=== PATIENT | male | born 1980 | race Caucasian/White ===

== ENCOUNTER 2016-11-08 14:11 | Emergency (ER) | payer OTHER ==
[2016-11-08 14:27] VITALS: PULSE 78; RESP 20; TEMP 97.3
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
[2016-11-08] MEDS ORDERED: KETOROLAC 60 MG/2 ML VIAL IM STA (15:08)
[2016-11-08] MEDS ORDERED: ORPHENADRINE 30 MG/ML 2 ML VIAL IM STA (15:08)
--- NOTE | 2016-11-08 15:11 | XR ---
EXAMINATION TYPE: XR cervical spine limited DATE OF EXAM ORDERED: 11/08/2016 3:05 PM HISTORY: Pain. COMPARISON: None. FINDINGS: There is loss of normal cervical lordosis. Vertebral body height and alignment are maintained. Atlantoaxial relationships are normal. There is m ild disc space loss at C5-6. No other significant degenerative changes seen. IMPRESSION: 1. NO ACUTE OSSEOUS LESION. 2. MINIMAL DEGENERATIVE CHANGE, C5-6.
--- NOTE | 2016-11-08 15:15 | XR ---
EXAMINATION TYPE: XR lumbar spine 2 or 3V DATE OF EXAM ORDERED: 11/08/2016 3:05 PM HISTORY: Pain. COMPARISON: None. FINDINGS: There has been a previous cholecystectomy. Vertebral body alignment is maintained. There is minimal wedging of the T12 and L1 vertebral bodies w ith associated degenerative change. This is likely chronic. There is no spondylolysis or spondylolist hesis. There is mild disc space loss at L5-S1 and also T12-L1. The pedicles are intact. IMPRESSION: 1. NO ACUTE OSSEOUS LESION. 2. MILD DEGENERATIVE CHANGE.
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
[2016-11-08 15:47] VITALS: BP 145/89
== END 2016-11-08 15:48 | disposition home or self-care (01) ==
LOC: EC 14:11
DX: S16.1XXA Strain of muscle, fascia and tendon at neck level, initial encounter (principal); S39.012A Strain of muscle, fascia and tendon of lower back, initial encounter; S00.11XA Contusion of right eyelid and periocular area, initial encounter; V49.50XA Passenger injured in collision with unspecified motor vehicles in traffic accident, initial encounter; Y92.410 Unspecified street and highway as the place of occurrence of the external cause
CPT/HCPCS: 96372 ×3; 99284 ×2; 72040; 72100; 70486; J2360; J1885

== ENCOUNTER 2023-07-13 13:35 | Emergency (ER) | payer OTHER ==
--- NOTE | 2023-07-13 14:19 | ED ---
General Adult HPI - General Chief complaint: Shortness of Breath Stated complaint: dark urine swollen feet sob Time Seen by Provider: 07/13/23 13:41 Source: patient, RN notes reviewed Mode of arrival: ambulatory Limitations: no limitations - History of Present Illness Initial comments: 43-year-old male presents to the emergency department for chief complaint of left-sided flank pain, fluid retention, shortness of breath. He states that the symptoms have been going on for around 3-4 days. He does report that the pain in his flank is worse with deep breaths and with coughing. He does report decreased frequency of urination with possible hematuria. He also reports that he has been coughing frequently. He does state this is a productive cough. He denies fever, chills. He denies any known medical history. - Related Data Previous Rx's Medication Instructions Recorded Cyclobenzaprine [Flexeril] 10 mg PO TID #12 tab 11/08/16 Ibuprofen [Motrin] 800 mg PO Q6HR PRN #20 tab 11/08/16 diazePAM [Valium] 5 mg PO TID #12 tab 11/08/16 Amoxic-Pot Clav 875-125Mg 1 tab PO BID 7 Days #14 tab 07/13/23 [Augmentin 875-125] Azithromycin [Zithromax Z Pack] 0 tab PO DIRECTED #6 tab 07/13/23 Allergies Allergy/AdvReac Type Severity Reaction Status Date / Time No Known Allergies Allergy Verified 07/13/23 13:39 Review of Systems ROS Statement: Those systems with pertinent positive or pertinent negative responses have been documented in the HPI. ROS Other: All systems not noted in ROS Statement are negative. Past Medical History Past Medical History: No Reported History History of Any Multi-Drug Resistant Organisms: None Reported Additional Past Surgical History / Comment(s): cholecystectomy Past Psychological History: No Psychological Hx Reported Smoking Status: Current every day smoker Past Alcohol Use History: Rare Past Drug Use History: Marijuana General Exam Limitations: no limitations General appearance: alert, in no apparent distress Head exam: Present: atraumatic, normocephalic, normal inspection ENT exam: Present: normal exam, mucous membranes moist Neck exam: Present: normal inspection. Absent: tenderness, meningismus, lymphadenopathy Respiratory exam: Present: rhonchi. Absent: respiratory distress, chest wall tenderness, accessory muscle use Cardiovascular Exam: Present: regular rate, normal rhythm, normal heart sounds. Absent: systolic murmur, diastolic murmur, rubs, gallop, clicks GI/Abdominal exam: Present: soft, normal bowel sounds. Absent: distended, tenderness, guarding, rebound, rigid Extremities exam: Present: normal inspection, full ROM, normal capillary refill, pedal edema. Absent: tenderness, joint swelling, calf tenderness Back exam: Present: tenderness (Left flank) Neurological exam: Present: alert, oriented X3 Psychiatric exam: Present: normal affect, normal mood Skin exam: Present: warm, dry, intact, normal color. Absent: rash Course Vital Signs 07/13/23 07/13/23 07/13/23 13:36 14:53 16:00 Temperature 98.4 F Pulse Rate 85 83 80 Respiratory 18 20 22 Rate Blood Pressure 167/85 153/87 150/80 O2 Sat by Pulse 93 L 98 98 Oximetry 07/13/23 16:41 Temperature 100.2 F H Pulse Rate 85 Respiratory 22 Rate Blood Pressure 151/89 O2 Sat by Pulse 95 Oximetry Medical Decision Making - Medical Decision Making Was pt. sent in by a medical professional or institution (, PA, [facility], urgent care, hospital, or [place] health care facility...) When possible be specific @ -No Did you speak to anyone other than the patient for history (EMS, parent, family, police, friend...)? What history was obtained from this source @ -No Did you review nursing and triage notes (agree or disagree)? Why? @ -I reviewed and agree with nursing and triage notes Were old charts reviewed (outside hosp., previous admission, EMS record, old EKG, old radiological studies, urgent care reports/EKG's, [place] health care facility records)? Report findings @ -No old charts were reviewed Differential Diagnosis (chest pain, altered mental status, abdominal pain women, abdominal pain men, vaginal bleeding, weakness, fever, dyspnea, syncope, he adache, dizziness, GI bleed, back pain, seizure, CVA, palpatations, mental health, musculoskeletal)? @ -Differential Abdominal Pain Men: Appendicitis, cholecystitis, diverticulosis, ischemic bowel, pancreatitis, hepatitis, UTI, gastroenteritis, AAA, incarcerated hernia, bowel obstruction, constipation, inflammatory bowel, hepatitis, peptic ulcer disease, splenic infarction, perforated viscus, testicular torsion, this is not meant to be an all-inclusive list EKG interpreted by me (3pts min.). @ -EKG at 1344 shows sinus rhythm rate 81, CA 148, QRS 102, QTQTc 3 [id number] X-rays interpreted by me (1pt min.). @ -None done CT interpreted by me (1pt min.). @ -CT abdomen and pelvis shows U/S interpreted by me (1pt. min.). @ -None done What testing was considered but not performed or refused? (CT, X-rays, U/S, labs)? Why? @ -None What meds were considered but not given or refused? Why? @ -None Did you discuss the management of the patient with other professionals (professionals i.e. , PA, [employer] [facility], lab, RT, psych nurse, social director, produce weigher, teacher, correctional probation officer, watch case polisher)? Give summary @ -No Was smoking cessation discussed for >3mins.? @ -No Was critical care preformed (if so, how long)? @ -No Were there social determinants of health that impacted care today? How? (Homelessness, low income, unemployed, alcoholism, drug addiction, transportation, low edu. Level, literacy, decrease access to med. care, snf, rehab)? @ -No Was there de-escalation of care discussed even if they declined (Discuss DNR or withdrawal of care, Hospice)? DNR status @ -No What co-morbidities impacted this encounter? (DM, HTN, Smoking, COPD, CAD, Ca ncer, CVA, ARF, Chemo, Hep., AIDS, mental health diagnosis, sleep apnea, morbid obesity)? @ -None Was patient admitted / discharged? Hospital course, mention meds given and route, prescriptions, significant lab abnormalities, going to OR and other pertinent info. @ -Discharged. Patient presented to the emergency department with chief compl aint of left-sided flank/rib pain. Left lower lobe pneumonia with small effusion, diverticulosis without diverticulitis; chest x-ray shows mild interstitial prominence of the left lung with small to moderate left pleural effusion; laboratory studies obtained show WBC 10.1, hemoglobin 12.8, hematocrit 40.0; PTT INR within normal limits; CMP shows sodium 138, potassium 4.6, chloride 102, creatinine 0.85, negative troponin, BNP 168; UA shows trace protein, negative leukocyte esterase, negative nitrite. Patient will be treated with one dose of IV Rocephin and outpatient treatment of pneumonia. Patient is febrile at discharge likely due to the pneumonia. Patient stable at discharge. Patient understands and agreeable with plan. Case discussed with Dr. Naqvi. Undiagnosed new problem with uncertain prognosis? @ -No Drug Therapy requiring intensive monitoring for toxicity (Heparin, Nitro, Insulin, Cardizem)? @ -No Were any procedures done? @ -No Diagnosis/symptom? @ -pneumonia Acute, or Chronic, or Acute on Chronic? @ -acute Uncomplicated (without systemic symptoms) or Complicated (systemic symptoms)? @ -complicated Side effects of treatment? @ -No Exacerbation, Progression, or Severe Exacerbation? @ -No Poses a threat to life or bodily function? How? (Chest pain, USA, MD, pneumonia, PE, COPD, DKA, ARF, appy, cholecystitis, CVA, Diverticulitis, Homicidal, S uicidal, threat to staff... and all critical care pts) @ -No - Lab Data Result diagrams: 07/13/23 14:17 07/13/23 14:17 Lab Results 07/13/23 07/13/23 07/13/23 Range/Units 14:17 14:17 14:17 WBC 10.1 (3.8-10.6) k/uL RBC 4.62 (4.30-5.90) m/uL Hgb 12.8 L (13.0-17.5) gm/dL Hct 40.0 (39.0-53.0) % MCV 86.7 (80.0-100.0) fL MCH 27.7 (25.0-35.0) pg MCHC 32.0 (31.0-37.0) g/dL RDW 12.7 (11.5-15.5) % Plt Count 340 (150-450) k/uL MPV 9.6 Neutrophils % 70 % Lymphocytes % 19 % Monocytes % 7 % Eosinophils % 3 % Basophils % 0 % Neutrophils # 7.0 (1.3-7.7) k/uL Lymphocytes # 1.9 (1.0-4.8) k/uL Monocytes # 0.7 (0-1.0) k/uL Eosinophils # 0.3 (0-0.7) k/uL Basophils # 0.0 (0-0.2) k/uL PT 11.3 (10.0-12.5) sec INR 1.0 (<1.2) APTT 25.7 (22.0-30.0) sec Sodium 138 (137-145) mmol/L Potassium 4.6 (3.5-5.1) mmol/L Chloride 102 (98-107) mmol/L Carbon Dioxide 27 (22-30) mmol/L Anion Gap 9 mmol/L BUN 14 (9-20) mg/dL Creatinine 0.85 (0.66-1.25) mg/dL Est GFR (CKD-EPI)AfAm >90 (>60 ml/min/1.73 sqM) Est GFR (CKD-EPI)NonAf >90 (>60 ml/min/1.73 sqM) Glucose 108 H (74-99) mg/dL Plasma Lactic Acid Selvin (0.7-2.0) mmol/L Calcium 9.0 (8.4-10.2) mg/dL Total Bilirubin 1.1 (0.2-1.3) mg/dL AST 34 (17-59) U/L ALT 36 (4-49) U/L Alkaline Phosphatase 119 (38-126) U/L Troponin I (0.000-0.034) ng/mL NT-Pro-B Natriuret Pep 168 pg/mL Total Protein 6.9 (6.3-8.2) g/dL Albumin 3.5 (3.5-5.0) g/dL Urine Color Urine Appearance (Clear) Urine pH (5.0-8.0) Ur Specific Savage (1.001-1.035) Urine Protein (Negative) Urine Glucose (UA) (Negative) Urine Ketones (Negative) Urine Blood (Negative) Urine Nitrite (Negative) Urine Bilirubin (Negative) Urine Urobilinogen (<2.0) mg/dL Ur Leukocyte Esterase (Negative) 07/13/23 07/13/23 07/13/23 Range/Units 14:17 14:17 14:17 WBC (3.8-10.6) k/uL RBC (4.30-5.90) m/uL Hgb (13.0-17.5) gm/dL Hct (39.0-53.0) % MCV (80.0-100.0) fL MCH (25.0-35.0) pg MCHC (31.0-37.0) g/dL RDW (11.5-15.5) % Plt Count (150-450) k/uL MPV Neutrophils % % Lymphocytes % % Monocytes % % Eosinophils % % Basophils % % Neutrophils # (1.3-7.7) k/uL Lymphocytes # (1.0-4.8) k/uL Monocytes # (0-1.0) k/uL Eosinophils # (0-0.7) k/uL Basophils # (0-0.2) k/uL PT (10.0-12.5) sec INR (<1.2) APTT (22.0-30.0) sec Sodium (137-145) mmol/L Potassium (3.5-5.1) mmol/L Chloride (98-107) mmol/L Carbon Dioxide (22-30) mmol/L Anion Gap mmol/L BUN (9-20) mg/dL Creatinine (0.66-1.25) mg/dL Est GFR (CKD-EPI)AfAm (>60 ml/min/1.73 sqM) Est GFR (CKD-EPI)NonAf (>60 ml/min/1.73 sqM) Glucose (74-99) mg/dL Plasma Lactic Acid Selvin 1.4 (0.7-2.0) mmol/L Calcium (8.4-10.2) mg/dL Total Bilirubin (0.2-1.3) mg/dL AST (17-59) U/L ALT (4-49) U/L Alkaline Phosphatase (38-126) U/L Troponin I <0.012 (0.000-0.034) ng/mL NT-Pro-B Natriuret Pep pg/mL Total Protein (6.3-8.2) g/dL Albumin (3.5-5.0) g/dL Urine Color Yellow Urine Appearance Clear (Clear) Urine pH 7.5 (5.0-8.0) Ur Specific Savage 1.029 (1.001-1.035) Urine Protein Trace H (Negative) Urine Glucose (UA) Negative (Negative) Urine Ketones Negative (Negative) Urine Blood Negative (Negative) Urine Nitrite Negative (Negative) Urine Bilirubin Negative (Negative) Urine Urobilinogen 12.0 (<2.0) mg/dL Ur Leukocyte Esterase Negative (Negative) Disposition Clinical Impression: Pneumonia Disposition: HOME SELF-CARE Condition: Stable Instructions (If sedation given, give patient instructions): Community Acquired Pneumonia (ED) Additional Instructions: Please waste picker antibiotics and take to completion. Follow up with your primary care provider. Return to the emergency department for new or worsening symptoms. Prescriptions: Amoxic-Pot Clav 875-125Mg [Augmentin 875-125] 1 tab PO BID 7 Days #14 tab Azithromycin [Zithromax Z Pack] 0 tab PO DIRECTED #6 tab Is patient prescribed a controlled substance at d/c from ED?: No Referrals: None,Stated [Primary Care Provider] - 1-2 days
[2023-07-13 14:34] LABS: Appearance,Urine Clear (Clear); Bilirubin,Urine Negative (Negative); Blood,Urine Negative (Negative); Color,Urine Yellow; Glucose,Urine (UA) Negative (Negative); Ketones,Urine Negative (Negative); Leukocyte Esterase,Urine Negative (Negative); Nitrite,Urine Negative (Negative); PH, Urine 7.5 (5.0-8.0); Protein,Urine Trace (Negative); Specific Gravity,Urine 1.029 (1.001-1.035)
[2023-07-13 14:35] LABS: Basophils % (A) 0 %; Eosinophils # (A) 0.3 k/uL (0-0.7); Eosinophils % (A) 3 %; HGB 12.8 gm/dL (13.0-17.5); Lymphocytes # (A) 1.9 k/uL (1.0-4.8); Lymphocytes % (A) 19 %; MCH 27.7 pg (25.0-35.0); MCV 86.7 fL (80.0-100.0); Mean Platelet Volume 9.6; Monocytes # (A) 0.7 k/uL (0-1.0); Monocytes % (A) 7 %; Neutrophils % (A) 70 %; Platelet Count 340 k/uL (150-450); RBC 4.62 m/uL (4.30-5.90); RDW 12.7 % (11.5-15.5); WBC 10.1 k/uL (3.8-10.6)
[2023-07-13 14:43] LABS: Partial Thromboplastin Time 25.7 sec (22.0-30.0); Prothrombin Time 11.3 sec (10.0-12.5)
[2023-07-13 14:52] LABS: ALT 36 U/L (4-49); AST 34 U/L (17-59); African American GFR (CKD) >90 (>60 ml/min/1.73 sqM); Albumin 3.5 g/dL (3.5-5.0); Alkaline Phosphatase 119 U/L (38-126); Anion Gap 9 mmol/L; Blood Urea Nitrogen 14 mg/dL (9-20); Carbon Dioxide 27 mmol/L (22-30); Chloride 102 mmol/L (98-107); Glucose 108 mg/dL (74-99); Non-African American GFR(CKD) >90 (>60 ml/min/1.73 sqM); Potassium 4.6 mmol/L (3.5-5.1); Sodium 138 mmol/L (137-145); Total Bilirubin 1.1 mg/dL (0.2-1.3); Total Protein 6.9 g/dL (6.3-8.2)
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
--- NOTE | 2023-07-13 15:01 | CT ---
EXAMINATION TYPE: CT abdomen pelvis wo con DATE OF EXAM: 07/13/2023 COMPARISON: None HISTORY: left flank pain CT DLP: 2577.4 mGycm Automated exposure control for dose reduction was used. TECHNIQUE: Helical acquisition of images was performed from the lung bases through the pelvis. FINDINGS: There is a partially consolidative left lower lobe density consistent with pneumonia. There is a smal l left pleural effusion. There are surgical absence of the gallbladder. There is no organomegaly involving the liver, pancreas , spleen or adrenal glands. There are no renal calcifications or hydronephrosis. The caliber of the abdominal aorta is normal and there is no retroperitoneal adenopathy or hemorrhage. The bowel loops normal in caliber and there is no dilatation or obstruction. No inflammatory changes are identified in the mesentery. There is no free intraperitoneal air or fluid. There is diverticulos is of the descending and sigmoid colon without CT evidence of diverticulitis. There is no pelvic mass, free fluid, abscess or adenopathy. No focal osseous lesions are seen. IMPRESSION: 1. Left lower lobe pneumonia and small effusion. 2. Diverticulosis of the colon without CT evidence of diverticulitis. 3. No acute changes within the abdomen or pelvis.
[2023-07-13 15:17] LABS: NT-Pro-B-Type Natriuretic Pept 168 pg/mL
[2023-07-13 16:18] VITALS: RESP 22
[2023-07-13] MEDS ORDERED: cefTRIAXone IN SWFI 1,000 MG/10 ML SYRINGE IVP STA (16:20)
[2023-07-13 16:43] VITALS: BP 151/89; PULSE 85; TEMP 100.2
== END 2023-07-13 16:50 | disposition home or self-care (01) ==
LOC: EC 13:35
DX: J18.9 Pneumonia, unspecified organism (principal); F12.90 Cannabis use, unspecified, uncomplicated; F17.200 Nicotine dependence, unspecified, uncomplicated; Z90.49 Acquired absence of other specified parts of digestive tract
CPT/HCPCS: 36415; 93005; 83880; 80053; 83605; 84484; 85025; 85610; 85730; 81003; 71046; 74176; 99285; 96374; J0696

== ENCOUNTER 2023-08-14 09:01 | Inpatient (IN) | payer OTHER ==
[2023-08-14] MEDS ORDERED: SODIUM CHLORIDE 0.9% 1,000 ML IV STA (09:19)
[2023-08-14] MEDS ORDERED: IPRATROPIUM-ALBUTEROL 3 ML NEB INHALATION STA ×2 (09:19→13:05)
[2023-08-14] MEDS ORDERED: AZITHROMYCIN 500 MG in SODIUM CHLORIDE 0.9% 250 ML IVPB STA (09:19)
--- NOTE | 2023-08-14 09:21 | ED ---
SOB HPI - General Stated Complaint: DEB Time Seen by Provider: 08/14/23 09:18 Source: RN notes reviewed, old records reviewed Mode of arrival: EMS Limitations: no limitations - History of Present Illness Initial Comments: This is a 43-year-old male to the emergency department for evaluation. Patient is sedated today for evaluation of shortness of breath and diagnosis of pneumo hellen. History of significant COPD in by by EMS with low oxygen levels and difficulty breathing patient is taking as pressure and became significant shortness breath and passed out. Patient presents for severe shortness shortness of breath here in the ER with history of smoking and obesity MD Complaint: shortness of breath, cough, chest pain -: days(s) Severity: moderate Severity scale (1-10): 7 Quality: aching Consistency: constant Improves With: nothing Worsens With: nothing Known History Of: COPD Context: recent URI, recent illness Associated Symptoms: chest pain, pain with inspiration, fever, cough - Related Data Previous Rx's Medication Instructions Recorded Apixaban Initiation Dose--VTE 10 mg PO BID #90 tab 08/19/23 [Eliquis Initiation Dosing for VTE Treatment] Atorvastatin [Lipitor] 40 mg PO HS #60 tab 08/19/23 Pantoprazole [Protonix] 40 mg PO AC-BRKFST #60 tab 08/19/23 polyethylene glycoL 3350 [Miralax] 17 gm PO DAILY #60 packet 08/19/23 Allergies Allergy/AdvReac Type Severity Reaction Status Date / Time No Known Allergies Allergy Verified 08/14/23 11:07 Review of Systems ROS Statement: Those systems with pertinent positive or pertinent negative responses have been documented in the HPI. ROS Other: All systems not noted in ROS Statement are negative. Past Medical History Past Medical History: No Reported History History of Any Multi-Drug Resistant Organisms: None Reported Additional Past Surgical History / Comment(s): cholecystectomy Past Psychological History: No Psychological Hx Reported Smoking Status: Current every day smoker Past Alcohol Use History: Rare Past Drug Use History: Marijuana General Exam General appearance: alert, in no apparent distress, anxious, in distress Head exam: Present: atraumatic, normocephalic, normal inspection Eye exam: Present: normal appearance, PERRL, EOMI. Absent: scleral icterus, conjunctival injection, periorbital swelling ENT exam: Present: normal exam, mucous membranes dry Neck exam: Present: normal inspection. Absent: tenderness, meningismus, ly mphadenopathy Respiratory exam: Present: respiratory distress, wheezes, accessory muscle use, decreased breath sounds, prolonged expiratory. Absent: rales, rhonchi, stridor Cardiovascular Exam: Present: normal rhythm, tachycardia, normal heart sounds. Absent: systolic murmur, diastolic murmur, rubs, gallop, clicks GI/Abdominal exam: Present: soft, normal bowel sounds. Absent: distended, tenderness, guarding, rebound, rigid Extremities exam: Present: normal inspection, full ROM, normal capillary refill. Absent: tenderness, pedal edema, joint swelling, calf tenderness Back exam: Present: normal inspection Neurological exam: Present: alert, oriented X3, CN II-XII intact Psychiatric exam: Present: normal affect, normal mood Skin exam: Present: warm, dry, intact, normal color. Absent: rash Course Vital Signs 08/14/23 08/14/23 08/14/23 09:10 09:12 10:00 Temperature 98.4 F Pulse Rate 115 H 93 Respiratory 22 16 Rate Blood Pressure 171/80 O2 Sat by Pulse 84 L 86 L 90 L Oximetry 08/14/23 08/14/23 08/14/23 10:14 11:00 11:57 Temperature Pulse Rate 103 H 109 H 97 Respiratory 22 16 18 Rate Blood Pressure 148/80 132/86 O2 Sat by Pulse 92 L 90 L Oximetry 08/14/23 08/14/23 08/14/23 12:00 12:05 12:46 Temperature 98.2 F Pulse Rate 96 100 96 Respiratory 10 L 18 20 Rate Blood Pressure 131/86 128/85 O2 Sat by Pulse 97 92 L Oximetry 08/14/23 08/14/23 08/14/23 13:00 13:28 13:44 Temperature Pulse Rate 103 H 90 Respiratory 17 20 26 H Rate Blood Pressure 105/87 117/90 O2 Sat by Pulse 91 L 100 97 Oximetry 08/14/23 08/14/23 08/14/23 13:52 14:00 14:01 Temperature Pulse Rate 94 96 100 Respiratory 18 20 18 Rate Blood Pressure 137/96 O2 Sat by Pulse 90 L Oximetry 08/14/23 15:00 Temperature Pulse Rate 92 Respiratory 23 Rate Blood Pressure O2 Sat by Pulse 94 L Oximetry - Reevaluation(s) Reevaluation #1: 08/14/23 10:01 Records reviewed Reevaluation #2: Patient has no recurrent symptoms here in the ER remains persistent shortness of breath Has difficulty going to computed tomography scan secondary to severe shortness of breath as well as significant shortness of breath during the computed tomography scan Reevaluation #3: Patient informed results and questions answered Reevaluation #4: 08/14/23 10:01 Was pt. sent in by a medical professional or institution ([facility], [facility], urgent care, hospital, or residential...) When possible be specific @ -no Did you speak to anyone other than the patient for history (EMS, parent, family, police, friend...)? What history was obtained from this source @ -no Did you review nursing and triage notes (agree or disagree)? Why? @ -agree Are old charts reviewed (outside hosp., previous admission, EMS record, old EKG, old radiological studies, urgent care reports/EKG's, residential records)? Report findings @ -yes Differential Diagnosis (chest pain, altered mental status, abdominal pain women, abdominal pain men, vaginal bleeding, weakness, fever, dyspnea, syncope, headache, dizziness, GI bleed, back pain, seizure, CVA, palpatations, mental health, musculoskeletal)? @ -prior EKG interpreted by me (3pts min.). @ -yes X-rays interpreted by me (1pt min.). @ -yes CT interpreted by me (1pt min.). @ -no U/S interpreted by me (1pt. min.). @ -no What testing was considered but not performed or refused? (CT, X-rays, U/S, labs)? Why? @ -none What meds were considered but not given or refused? Why? @ -none Did you discuss the management of the patient with other professionals (professionals i.e. [facility] Nguyen, [facility], lab, RT, psych nurse, social group worker, stage settings painter, teacher, workers' compensation hearings officer, disability case manager)? Give summary @ -no Was smoking cessation discussed for >3mins.? @ -no Was critical care preformed (if so, how long)? @ -no Were there social determinants of health that impacted care today? How? (Homelessness, low income, unemployed, alcoholism, drug addiction, transportation, low edu. Level, literacy, decrease access to med. care, [facility], rehab)? @ -none Was there de-escalation of care discussed even if they declined (Discuss DNR or withdrawal of care, Hospice)? DNR status @ -no What co-morbidities impacted this encounter? (DM, HTN, Smoking, COPD, CAD, Cancer, CVA, ARF, Chemo, Hep., AIDS, mental health diagnosis, sleep apnea, morbid obesity)? @ -none Was patient admitted / discharged? Hospital course, mention meds given and route, prescriptions, significant lab abnormalities, going to OR and other pertinent info. @ - Undiagnosed new problem with uncertain prognosis? @ -no Drug Therapy requiring intensive monitoring for toxicity (Heparin, Nitro, Insulin, Cardizem)? @ -no Were any procedures done? @ -no Diagnosis/symptom? @ - Acute, or Chronic, or Acute on Chronic? @ -Acute Uncomplicated (without systemic symptoms) or Complicated (systemic symptoms)? @ -Complicated Side effects of treatment? @ -no Exacerbation, Progression, or Severe Exacerbation? @ -exacerbation Poses a threat to life or bodily function? How? (Chest pain, [place], [place], pneumonia, PE, COPD, DKA, ARF, appy, cholecystitis, CVA, Diverticulitis, Homicidal, Suicidal, threat to staff... and all critical care pts) @ -yes Reevaluation #5: 08/14/23 10:02 Differential Dyspnea: Coronary syndrome, arrhythmia, tamponade, asthma, COPD, pulmonary embolism, pneumonia, pneumothorax, pulmonary effusion, anaphylaxis, diabetic ketoacidosis, flailed chest, pulmonary contusion, diaphragmatic rupture, anemia, neuromuscular, this is not meant to be an all-inclusive list. - Consultations Consultation #1: Spoke with admitting physicians who agree to admit this patient Consultation #2: spoke with vascular surgery will see the patient for PE Medical Decision Making - Medical Decision Making 43 male to the ED co severe SOB, weakness, near syncopal event, patient does have persistent severe shortness of breath here in the emergency with CHF COPD and found of pulmonary embolism resulting in near syncope. Patient will be adm itted for severe illness and rest for distress - Lab Data Result diagrams: 08/19/23 06:06 08/19/23 06:06 Lab Results 08/14/23 08/14/23 08/14/23 Range/Units 09:36 09:36 09:36 WBC 14.5 H (3.8-10.6) k/uL RBC 4.69 (4.30-5.90) m/uL Hgb 13.0 (13.0-17.5) gm/dL Hct 40.7 (39.0-53.0) % MCV 86.8 (80.0-100.0) fL MCH 27.7 (25.0-35.0) pg MCHC 31.9 (31.0-37.0) g/dL RDW 14.1 (11.5-15.5) % Plt Count 277 (150-450) k/uL MPV 9.9 Neutrophils % 76 % Lymphocytes % 9 % Monocytes % 4 % Eosinophils % 10 % Basophils % 0 % Neutrophils # 11.1 H (1.3-7.7) k/uL Lymphocytes # 1.4 (1.0-4.8) k/uL Monocytes # 0.6 (0-1.0) k/uL Eosinophils # 1.4 H (0-0.7) k/uL Basophils # 0.0 (0-0.2) k/uL Hypochromasia Slight PT 11.0 (10.0-12.5) sec INR 1.0 (<1.2) APTT 24.6 (22.0-30.0) sec D-Dimer Cancelled Sodium 142 (137-145) mmol/L Potassium 4.5 (3.5-5.1) mmol/L Chloride 105 (98-107) mmol/L Carbon Dioxide 24 (22-30) mmol/L Anion Gap 13 mmol/L BUN 12 (9-20) mg/dL Creatinine 0.82 (0.66-1.25) mg/dL Est GFR (CKD-EPI)AfAm >90 (>60 ml/min/1.73 sqM) Est GFR (CKD-EPI)NonAf >90 (>60 ml/min/1.73 sqM) Glucose 124 H (74-99) mg/dL Lactic Ac Sepsis Rflx Plasma Lactic Acid Selvin (0.7-2.0) mmol/L Calcium 8.9 (8.4-10.2) mg/dL Total Bilirubin 0.6 (0.2-1.3) mg/dL AST 26 (17-59) U/L ALT 23 (4-49) U/L Alkaline Phosphatase 97 (38-126) U/L Troponin I (0.000-0.034) ng/mL NT-Pro-B Natriuret Pep 919 pg/mL Total Protein 7.4 (6.3-8.2) g/dL Albumin 3.7 (3.5-5.0) g/dL 08/14/23 08/14/23 08/14/23 Range/Units 09:36 09:36 10:25 WBC (3.8-10.6) k/uL RBC (4.30-5.90) m/uL Hgb (13.0-17.5) gm/dL Hct (39.0-53.0) % MCV (80.0-100.0) fL MCH (25.0-35.0) pg MCHC (31.0-37.0) g/dL RDW (11.5-15.5) % Plt Count (150-450) k/uL MPV Neutrophils % % Lymphocytes % % Monocytes % % Eosinophils % % Basophils % % Neutrophils # (1.3-7.7) k/uL Lymphocytes # (1.0-4.8) k/uL Monocytes # (0-1.0) k/uL Eosinophils # (0-0.7) k/uL Basophils # (0-0.2) k/uL Hypochromasia PT (10.0-12.5) sec INR (<1.2) APTT (22.0-30.0) sec D-Dimer Sodium (137-145) mmol/L Potassium (3.5-5.1) mmol/L Chloride (98-107) mmol/L Carbon Dioxide (22-30) mmol/L Anion Gap mmol/L BUN (9-20) mg/dL Creatinine (0.66-1.25) mg/dL Est GFR (CKD-EPI)AfAm (>60 ml/min/1.73 sqM) Est GFR (CKD-EPI)NonAf (>60 ml/min/1.73 sqM) Glucose (74-99) mg/dL Lactic Ac Sepsis Rflx Y Plasma Lactic Acid Selvin 3.0 H* (0.7-2.0) mmol/L Calcium (8.4-10.2) mg/dL Total Bilirubin (0.2-1.3) mg/dL AST (17-59) U/L ALT (4-49) U/L Alkaline Phosphatase (38-126) U/L Troponin I 0.289 H* (0.000-0.034) ng/mL NT-Pro-B Natriuret Pep pg/mL Total Protein (6.3-8.2) g/dL Albumin (3.5-5.0) g/dL 08/14/23 08/14/23 Range/Units 12:58 12:58 WBC (3.8-10.6) k/uL RBC (4.30-5.90) m/uL Hgb (13.0-17.5) gm/dL Hct (39.0-53.0) % MCV (80.0-100.0) fL MCH (25.0-35.0) pg MCHC (31.0-37.0) g/dL RDW (11.5-15.5) % Plt Count (150-450) k/uL MPV Neutrophils % % Lymphocytes % % Monocytes % % Eosinophils % % Basophils % % Neutrophils # (1.3-7.7) k/uL Lymphocytes # (1.0-4.8) k/uL Monocytes # (0-1.0) k/uL Eosinophils # (0-0.7) k/uL Basophils # (0-0.2) k/uL Hypochromasia PT (10.0-12.5) sec INR (<1.2) APTT (22.0-30.0) sec D-Dimer 7.81 H Sodium (137-145) mmol/L Potassium (3.5-5.1) mmol/L Chloride (98-107) mmol/L Carbon Dioxide (22-30) mmol/L Anion Gap mmol/L BUN (9-20) mg/dL Creatinine (0.66-1.25) mg/dL Est GFR (CKD-EPI)AfAm (>60 ml/min/1.73 sqM) Est GFR (CKD-EPI)NonAf (>60 ml/min/1.73 sqM) Glucose (74-99) mg/dL Lactic Ac Sepsis Rflx Plasma Lactic Acid Selvin (0.7-2.0) mmol/L Calcium (8.4-10.2) mg/dL Total Bilirubin (0.2-1.3) mg/dL AST (17-59) U/L ALT (4-49) U/L Alkaline Phosphatase (38-126) U/L Troponin I (0.000-0.034) ng/mL NT-Pro-B Natriuret Pep 1450 pg/mL Total Protein (6.3-8.2) g/dL Albumin (3.5-5.0) g/dL - EKG Data -: EKG Interpreted by Me (EKG sinus 406 NJ 132 QRS 90 QTC 387) - Radiology Data Radiology results: pending (CTa chest for PE is pending as well as ultrasound of lower extremities for DVT), report reviewed (CXR is negative for acute diiease), image reviewed Critical Care Time Critical Care Time: Yes Total Critical Care Time: 31 Disposition Clinical Impression: Hypoxia, Acute respiratory distress syndrome in adult, Acute exacerbation of chronic obstructive pulmonary disease, Asthma with acute exacerbation, Pulmonary emboli, Acute respiratory failure, Syncope Disposition: ADMITTED IP TO THIS HOSP Condition: Critical Is patient prescribed a controlled substance at d/c from ED?: No Time of Disposition: 13:05
[2023-08-14 09:47] LABS: Basophils % (A) 0 %; Eosinophils # (A) 1.4 k/uL (0-0.7); Eosinophils % (A) 10 %; HCT 40.7 % (39.0-53.0); Hypochromasia Slight; Lymphocytes # (A) 1.4 k/uL (1.0-4.8); Lymphocytes % (A) 9 %; MCH 27.7 pg (25.0-35.0); MCHC 31.9 g/dL (31.0-37.0); MCV 86.8 fL (80.0-100.0); Mean Platelet Volume 9.9; Monocytes # (A) 0.6 k/uL (0-1.0); Monocytes % (A) 4 %; Neutrophils # (A) 11.1 k/uL (1.3-7.7); Neutrophils % (A) 76 %; Platelet Count 277 k/uL (150-450); RBC 4.69 m/uL (4.30-5.90); RDW 14.1 % (11.5-15.5); WBC 14.5 k/uL (3.8-10.6)
[2023-08-14 09:59] LABS: Partial Thromboplastin Time 24.6 sec (22.0-30.0)
[2023-08-14 10:19] LABS: NT-Pro-B-Type Natriuretic Pept 919 pg/mL
--- NOTE | 2023-08-14 10:27 | XR ---
EXAMINATION TYPE: XR chest 1V portable DATE OF EXAM: 08/14/2023 Comparison: 07/13/2023 Clinical History: 43 year-old male shortness of breath Findings: Heart upper limits of normal in size. Small right pleural effusion slightly increased. Remainder of t he lungs relatively clear. Impression: Increasing small left pleural effusion with adjacent atelectasis and/or consolidation.
[2023-08-14 10:36] LABS: ALT 23 U/L (4-49); AST 26 U/L (17-59); African American GFR (CKD) >90 (>60 ml/min/1.73 sqM); Albumin 3.7 g/dL (3.5-5.0); Alkaline Phosphatase 97 U/L (38-126); Anion Gap 13 mmol/L; Blood Urea Nitrogen 12 mg/dL (9-20); Calcium 8.9 mg/dL (8.4-10.2); Carbon Dioxide 24 mmol/L (22-30); Chloride 105 mmol/L (98-107); Glucose 124 mg/dL (74-99); Non-African American GFR(CKD) >90 (>60 ml/min/1.73 sqM); Potassium 4.5 mmol/L (3.5-5.1); Sodium 142 mmol/L (137-145); Total Bilirubin 0.6 mg/dL (0.2-1.3); Total Protein 7.4 g/dL (6.3-8.2)
[2023-08-14] MEDS ORDERED: MORPHINE SULFATE 4 MG/ML SYRINGE IV PRN (13:04)
[2023-08-14] MEDS ORDERED: ONDANSETRON 4 MG/2 ML VIAL IVP PRN (13:04)
[2023-08-14] MEDS ORDERED: NALOXONE 0.4 MG/ML 1 ML VIAL IV PRN (13:04)
[2023-08-14] MEDS ORDERED: methylPREDNISolone SOD SUCCI 125 MG/2 ML VIAL IV STA (13:12)
[2023-08-14] MEDS ORDERED: LORazepam 2 MG/ML INJ IV STA (13:12)
[2023-08-14] MEDS ORDERED: SODIUM CHLORIDE 0.9% 1,000 ML IV SCH (13:15)
[2023-08-14] MEDS ORDERED: HEPARIN SODIUM 1,000 UN/ML (10ML VL) IV ONE (14:06)
[2023-08-14] MEDS ORDERED: HEPARIN SODIUM 1,000 UN/ML (10ML VL) IV PRN (14:06)
[2023-08-14] MEDS ORDERED: HEPARIN SOD,PORK IN 0.45% NACL 25,000 UNIT in 0.45% NACL 1 250ML.BAG IV SCH (14:15)
--- NOTE | 2023-08-14 15:57 | CT ---
Exam: CT Angiography of the Chest. Date: 08/14/2023. Comparison: Unavailable. History: Difficulty breathing and elevated d-dimer. Technique: CT examination of the chest was performed following the intravenous administration of 100 mL of Isovue-370. CT dose lowering techniques were used, to include: automated exposure control, adju stment for patient size, and/or use of iterative reconstruction. FINDINGS: Mediastinum and Mayra: There is no axillary, mediastinal or hilar lymphadenopathy. Pleural and Pericardial spaces: There is a moderate to large left pleural effusion. Upper Abdomen: The visualized upper abdomen is unremarkable. Cardiovascular: The thoracic aorta is normal in size without evidence of aneurysm or dissection. Pulmonary Artery: There are filling defects within segmental branches of the left upper lobe pulmonar y artery as well as within the left lower lobe pulmonary artery. Additional filling defects are seen within segmental branches of the right lower lobe and possibly the right upper lobe pulmonary artery is well. Some motion limits evaluation in those locations. Lung Parenchyma and Airways: There is some compressive atelectatic changes within the left lower lobe . The lungs otherwise appear clear. Bones: No fracture or aggressive osseous lesion. IMPRESSION 1. Bilateral pulmonary emboli as above. There is dilation of the right heart which is suggestive of r ight heart strain. 2. No evidence of thoracic aortic aneurysm or dissection. 3. Moderate to large left pleural effusion. These critical findings were discussed with Dr. García on 08/14/2023 at 3:52 PM.
--- NOTE | 2023-08-14 16:10 | US ---
EXAMINATION TYPE: US venous doppler duplex LE BI DATE OF EXAM: 08/14/2023 3:23 PM COMPARISON: NONE CLINICAL INDICATION: Male, 43 years old with history of dvt; SIDE PERFORMED: Bilateral TECHNIQUE: The lower extremity deep venous system is examined utilizing real time linear array sonog nay with graded compression, doppler sonography and color-flow sonography. VESSELS IMAGED: Common Femoral Vein Deep Femoral Vein Greater Saphenous Vein * Femoral Vein Popliteal Vein Small Saphenous Vein * Proximal Calf Veins (* superficial vessels) Right Leg: Negative for DVT Left Leg: Positive for DVT; Popliteal IMPRESSION: Occlusive DVT within the left popliteal vein.
--- NOTE | 2023-08-14 16:14 | P.CNPUL ---
History of Present Illness Consult date: 08/14/23 Requesting physician: Laureen Tabor Reason for consult: dyspnea, COPD, hypoxemia, abnormal CXR/CT Chief complaint: Shortness of breath. History of present illness: Pulmonary consult dated 08/14/2023. 43-year-old male who was seen in the emergency department, room 7. The patient came into the hospital, complaining of shortness of breath. He's been having shortness of breath now for some time, seemingly started about 1 month ago, when he was in the emergency room here, for an episode of shortness of breath, and was discovered to have left lower lobe pneumonia. The patient was not admitted to the hospital that time. He does not have a family doctor. The patient presents today, August 14, shortness of breath. The patient apparently had low saturations according to EMS, had difficulty breathing. The patient is currently on 6 L of oxygen. Is getting saline at KVO, and a heparin drip. When he was here, for pneumonia 1 month ago, he was discharged with Augmentin and a Z-Amilcar. The patient has been smoking for at least 30+ years. He does continue to smoke. He works as a construction controller, and only takes Mucinex [id number] at home. Again he does not have a family doctor. White count 14.5, hemoglobin 13, hematocrit 40.7, platelet count normal. D-dimer was 7.81. Sodium 142, potassium 4.5, chlorides 105, CO2 24, BUN 12, and creatinine 0.82. Lactic acid was 3. Troponins were 0.289 and 0.431. N-terminal proBNP was 919, and repeat was 1450. Chest x-ray suggested infiltrate or consolidation in the left lower lobe, and/or effusion. CT angiogram shows bilateral pulmonary emboli, involving segmental branches of the left upper lobe pulmonary artery left lower lobe pulmonary artery, and segmental branches of the right lower lobe pulmonary artery and right upper lobe pulmonary artery. There is dilatation of the right heart, suggesting right heart strain. Venous Doppler studies are pending. Review of Systems REVIEW OF SYSTEMS: CONSTITUTIONAL: [Negative.] NEUROLOGIC: [ Negative.] HEENT: [ Negative.] CARDIAC: [Negative.] PULMONARY: Shortness of breath. GI: [Negative.] : [Negative.] RHEUMATOLOGIC: [ Negative.] IMMUNOLOGIC: [ Negative.] ENDOCRINE: [Negative. ] DERMATOLOGIC: [Negative.] Past Medical History Past Medical History: No Reported History History of Any Multi-Drug Resistant Organisms: None Reported Past Surgical History: Ear Surgery Additional Past Surgical History / Comment(s): cholecystectomy Past Psychological History: No Psychological Hx Reported Smoking Status: Current every day smoker Past Alcohol Use History: Rare Past Drug Use History: Marijuana Medications and Allergies Home Medications Medication Instructions Recorded Confirmed Type No Known Home Medications 08/14/23 08/14/23 History Allergies Allergy/AdvReac Type Severity Reaction Status Date / Time No Known Allergies Allergy Verified 08/14/23 11:07 Physical Exam Osteopathic Statement: *. No significant issues noted on an osteopathic structural exam other than those noted in the History and Physical/Consult. Vitals: Vital Signs Temp Pulse Resp BP Pulse Ox 08/14/23 14:01 100 18 08/14/23 13:52 94 18 08/14/23 13:44 26 H 97 08/14/23 13:28 90 20 117/90 100 08/14/23 12:46 98.2 F 96 20 128/85 92 L 08/14/23 12:05 100 18 08/14/23 11:57 97 18 08/14/23 10:14 103 H 22 148/80 92 L 08/14/23 09:10 98.4 F 115 H 22 171/80 84 L Intake and Output 08/14/23 08/14/23 08/14/23 06:59 14:59 22:59 Other: Weight 158.757 kg Mild to moderate respiratory distress, oriented 3, no conversational dyspnea or use of accessory muscles. HEENT examination is grossly unremarkable. Neck supple. Full range of motion. No adenopathy thyromegaly or neck vein distention. Cardiovascular examination reveals regular rhythm rate. S1-S2 normal. No S3 or S4. No discernible murmur noted. Heart sounds are distant. Heart rate 100 bpm. Lungs reveal clear breath sounds. Breath sounds are equal bilaterally. No adventitious lung sounds including wheezes rhonchi or crackles. 6 L saturation is 95%. Abdomen soft bowel sounds are heard. No masses or tenderness. Extremities are intact. No cyanosis clubbing or edema. Skin is without rash or lesion. Neurologic examination is brief but nonfocal. Results - Laboratory Findings CBC and BMP: 08/14/23 09:36 08/14/23 09:36 PT/INR, D-dimer PT 11.0 sec (10.0-12.5) 08/14/23 09:36 INR 1.0 (<1.2) 08/14/23 09:36 D-Dimer 7.81 mg/L FEU (<0.60) H 08/14/23 12:58 Abnormal lab findings: Abnormal Labs 08/14/23 08/14/23 08/14/23 09:36 09:36 09:36 WBC 14.5 H Neutrophils # 11.1 H Eosinophils # 1.4 H D-Dimer Glucose 124 H Plasma Lactic Acid Selvin 3.0 H* Troponin I 08/14/23 08/14/23 08/14/23 09:36 12:58 13:10 WBC Neutrophils # Eosinophils # D-Dimer 7.81 H Glucose Plasma Lactic Acid Selvin Troponin I 0.289 H* 0.431 H* - Diagnostic Findings Chest x-ray: image reviewed CT scan - chest: image reviewed Assessment and Plan Assessment: Acute hypoxemic respiratory failure, secondary to bilateral pulmonary embolism, with possible right heart strain, based on the CTA. Recent episode of pneumonia, one month ago, involving the left lower lobe, treated with antibiotics. History of chronic tobacco use and nicotine dependence. Rule out COPD. Obesity. Plan: Plan dated 08/14/2023. The patient was started on IV heparin. The patient should have a stat echocardiogram. The patient is getting Dopplers of the lower extremities. The patient's currently on 6 L and IV heparin. Vascular or cardiovascular service should be asked to see this patient, to determine whether or not he would be a candidate for EKOS or suction thrombectomy. Additional recommendations and suggestions are forthcoming. His hemodynamic status is currently stable with a blood pressure 128/85. They may choose to treat him conservatively with IV heparin, and eventually a factor X a inhibitor. Doppler of the lower extremities reveal a DVT on the left. Time with Patient: Greater than 30
[2023-08-14] MEDS: ALBUTEROL NEBULIZED 2.5 MG/3 ML INHALATION SCH ×3 (16:48→20:17)
[2023-08-14] MEDS: HEPARIN SOD,PORK IN 0.45% NACL 25,000 UNIT in 0.45% NACL 1 250ML.BAG IV SCH ×3 (16:58→19:06)
--- NOTE | 2023-08-14 17:22 | P.HPIM ---
History of Present Illness H&P Date: 08/14/23 Patient is a 43-year-old male with history of morbid obesity presenting with sudden onset shortness of breath. He claims that he was diagnosed with pneumonia 3 weeks ago, and had outpatient Abx therapy. He claims that his shortness of breath never really cut back to baseline. However, this morning he had sudden onset worsening shortness of breath and lightheadedness. He also has some nausea. Also had palpitations. Denies any chest pain. He did notice some leg swelling a few weeks ago. He has a strong family history of blood clots including his mother and grandmother. He denies any history of cancer or any family history of cancers. He does not see any physicians. He denies any prolonged immobilization after his recent illness. In the ED, temperature was 98.2, pulse 96, blood pressure 128/85, saturating at 92% on 6 L, currently at 97% on 15 L nonrebreather. White count 14.5, d-dimer 7.81, lactic acid 3, troponin 0.289 up to 0.431, proBNP 1400, potassium 4.5. CT each ear chest shows bilateral pulmonary emboli with right heart strain, moderate to large left pleural effusion. Chest x-ray independently interpreted, shows left pleural effusion. EKG independently interpreted shows evidence of S1 Q3 T3, and sinus tachycardia. Patient being admitted for submassive PE. Pending EKOS. Pertinent positives and negatives as discussed in HPI, a complete review of systems was performed and all other systems are negative. Patient seen and examined at bedside. Vital signs reviewed General: nontoxic, no distress, appears at stated age, morbidly obese Derm: warm, dry Head: atraumatic, normocephalic, symmetric Eyes: EOMI, no lid lag, anicteric sclera, pupils equal round reactive to light ENT: Nose and ears atraumatic Neck: No thyromegaly, supple Mouth: no lip lesion, mucus membranes moist Cardiovascular: S1S2 reg, no murmur, no edema Lungs: clear to auscultation bilateral, no rhonchi, no rales, no wheeze, no accessory muscle use, supplemental O2 Abdominal: soft, nontender to palpation, no guarding, no appreciable organomegaly Ext: no gross muscle atrophy, muscle strength muscle strength 5 out of 5 in all 4 extremities, no contractures Neuro: CN II-XII grossly intact Psych: Alert, oriented, appropriate affect Assessment/Plan: Active: Submassive bilateral pulmonary embolism acute hypoxic respiratory failure Leukocytosis, likely reactive Lactic acidosis NSTEMI, type 2 Acute left pleural effusion -on heparin gtt, monitor for bleeding, daily CBC -will likely need lifelong AC -continue to wean O2 -echo ordered -vascular sx for EKOS consulted -Pulm and cardiology consulted -LE dopplers pending -trend trop -continue tele -repeat lactate Morbid obesity -outpt structured weight loss program The patient is admitted with an anticipated greater than 2 midnight stay as inpatient status for evaluation of PE. Surrogate decision-maker: mother CODE STATUS:FC DVT prophylaxis: heparin gtt Anticipated discharge date: pending clinical course Anticipated discharge place: pending clinical course A total of 55 minutes was spent on the care of this complex patient more than 50% of the time was spent in counseling and care coordination. Past Medical History Past Medical History: No Reported History History of Any Multi-Drug Resistant Organisms: None Reported Past Surgical History: Ear Surgery Additional Past Surgical History / Comment(s): cholecystectomy Past Psychological History: No Psychological Hx Reported Smoking Status: Current every day smoker Past Alcohol Use History: Rare Past Drug Use History: Marijuana Medications and Allergies Home Medications Medication Instructions Recorded Confirmed Type No Known Home Medications 08/14/23 08/14/23 History Allergies Allergy/AdvReac Type Severity Reaction Status Date / Time No Known Allergies Allergy Verified 08/14/23 11:07 Physical Exam Vitals: Vital Signs Temp Pulse Resp BP Pulse Ox 08/14/23 14:01 100 18 08/14/23 13:52 94 18 08/14/23 13:44 26 H 97 08/14/23 13:28 90 20 117/90 100 08/14/23 12:46 98.2 F 96 20 128/85 92 L 08/14/23 12:05 100 18 08/14/23 11:57 97 18 08/14/23 10:14 103 H 22 148/80 92 L 08/14/23 09:10 98.4 F 115 H 22 171/80 84 L Intake and Output 08/14/23 08/14/23 08/14/23 06:59 14:59 22:59 Other: Weight 158.757 kg Results CBC & Chem 7: 08/14/23 09:36 08/14/23 09:36 Labs: Abnormal Lab Results - Last 24 Hours (Table) 08/14/23 08/14/23 08/14/23 Range/Units 09:36 09:36 09:36 WBC 14.5 H (3.8-10.6) k/uL Neutrophils # 11.1 H (1.3-7.7) k/uL Eosinophils # 1.4 H (0-0.7) k/uL D-Dimer (<0.60) mg/L FEU Glucose 124 H (74-99) mg/dL Plasma Lactic Acid Selvin 3.0 H* (0.7-2.0) mmol/L Troponin I (0.000-0.034) ng/mL 08/14/23 08/14/23 08/14/23 Range/Units 09:36 12:58 13:10 WBC (3.8-10.6) k/uL Neutrophils # (1.3-7.7) k/uL Eosinophils # (0-0.7) k/uL D-Dimer 7.81 H (<0.60) mg/L FEU Glucose (74-99) mg/dL Plasma Lactic Acid Selvin (0.7-2.0) mmol/L Troponin I 0.289 H* 0.431 H* (0.000-0.034) ng/mL
[2023-08-14] MEDS ORDERED: ALTEPLASE 6 MG in SODIUM CHLORIDE 0.9% 144 ML IV ONE ×4 (18:00)
[2023-08-14] MEDS ORDERED: LIDOCAINE 1% INJ 10MG/ML (20 ML MDV) ONE (18:22)
[2023-08-14] MEDS ORDERED: LIDOCAINE 1% INJ 10MG/ML (30 ML VIAL-PF) SQ ONE (18:23)
[2023-08-14] MEDS ORDERED: ALTEPLASE 2 MG VIAL (CATHFLO) IV STA (19:00)
[2023-08-14] MEDS ORDERED: SODIUM CHLORIDE 0.9% 1,000 ML IV ONE ×2 (19:06)
[2023-08-14] MEDS ORDERED: LORazepam 2 MG/ML INJ IV PRN (19:08)
[2023-08-14] MEDS ORDERED: HYDROcodone/APAP 5-325MG 1 EACH TAB PO PRN (19:08)
[2023-08-14] MEDS ORDERED: MORPHINE SULFATE 2 MG/ML SYRINGE IVP PRN (19:08)
--- NOTE | 2023-08-14 19:20 | P.OP ---
Date of Procedure: 08/14/23 Preoperative Diagnosis: Submassive bilateral pulmonary Postoperative Diagnosis: Same. Procedure(s) Performed: 1: Ultrasound-guided cannulation right common femoral vein 2. 2: Bilateral pulmonary angiography. 3: Placement of pulmonary artery catheter with initiation of TPA thrombolysis with se[place] catheter bilaterally. Anesthesia: none Surgeon: Tank Dickerson Estimated Blood Loss (ml): 5 IV fluids (ml): 0 Urine output (ml): 0 Pathology: none sent Condition: stable Disposition: ICU Indications for Procedure: Patient is a 43-year-old male who presented with acute onset shortness of breath. Workup in the ER demonstrated some massive bilateral pulmonary emboli with evidence of right heart strain and elevation in troponins. Because the evidence of right heart strain and submassive bone emboli being present patient is offered tPA thrombolysis. The procedure, risk and benefits were discussed with the patient. All questions were answered to patient's satisfaction. Description of Procedure: Patient was brought to the cardiac director labor standards. Head was slightly elevated at patient request due to shortness of breath and difficulty in breathing if laying completely flat. Bilateral inguinal areas were sterilely prepped and draped in usual manner. Utilizing ultrasound the right common femoral vein was identified. This was normally compressible free of visible thrombus. 1% Xylocaine was utilized for local anesthesia of the tissues overlying the right femoral vein. With the aid of ultrasound and through the anesthetized area a micropuncture needle was utilized to cannulate the vein. Once cannulated Softip guidewire is advanced into the vein. The needle was withdrawn and a micropuncture sheath and dilator were is advanced over the guidewire. Guidewire and dilator were withdrawn and through the micropuncture sheath a 0.035 inch wire was advanced into the iliac venous system. Its position was confirmed with fluoroscopy. A 6-Sammarinese sheath was then placed over the guidewire. A second 6-Sammarinese sheath was placed in similar manner. Angled glide catheter and guidewire combinations were advanced from the femoral vein sheath and positioned in the left pulmonary artery. Pulmonary angiogram demonstrated that contrast within the pulmonary tree. A glide catheter was withdrawn and a Ekos catheter was advanced over the guidewire and positioned in the left pulmonary artery. The vibratory core was then advanced through the catheter once the guidewire was withdrawn. A similar procedure was performed for cannulation of the right pulmonary artery. 2 mg of TPA were instilled into each left and right pulmonary artery catheters followed by continuous drip of TPA to run at 1 mg/h via each of the 2 ulnar artery catheters. The sheaths were secured to the skin with nylon suture. Proper dressings were applied. Patient tolerated the procedure well. He will be taken to the intensive care unit for continuation of TPA and heparin infusion.
[2023-08-14 19:47] LABS: Glucose,Whole Blood 148 mg/dL (70-110)
[2023-08-14] MEDS ORDERED: IOPAMIDOL-370 100ML BTL INJ ONE (20:00)
--- NOTE | 2023-08-14 20:25 | CT ---
EXAMINATION TYPE: CT brain wo con for TPA CT DLP: 1187.6 mGycm, Automated exposure control for dose reduction was used. DATE OF EXAM: 08/14/2023 8:11 PM COMPARISON: None. CLINICAL INDICATION:Male, 43 years old with history of CODE STROKE, Bilateral PE after Sx pt was unab le to move right arm. Code stroke. TECHNIQUE: Brain: Axial CT images of the brain were obtained with coronal and sagittal reformats created and rev iewed. Contrast used: None. Oral contrast used: None. FINDINGS: Brain: Extra-axial spaces: No abnormal extra-axial fluid collections. Ventricular system: Within normal limits Cerebral parenchyma: No acute intraparenchymal hemorrhage or mass effect. The field-white junction is well differentiated. Cerebellum: Unremarkable. Mass effect: No evidence of midline shift. Intracranial vasculature: unremarkable Soft tissues: Normal. Calvarium/osseous structures: No depressed skull fracture. Paranasal sinuses and mastoid air cells: Mild scattered paranasal sinus disease. Visualized orbits: Orbital contents are intact. IMPRESSION: No acute intracranial process.
--- NOTE | 2023-08-14 21:11 | CT ---
EXAMINATION TYPE: CT angio head neck CT DLP: 1068.6 mGycm, Automated exposure control for dose reduction was used. DATE OF EXAM: 08/14/2023 8:32 PM COMPARISON: CT brain same day.. CLINICAL INDICATION:Male, 43 years old with history of Neuro deficit, acute, stroke suspected; PHH, B ilateral PE after Sx pt was unable to move right arm. Code stroke. TECHNIQUE: Axially acquired helical CT angiogram of the head and neck was obtained with contrast. Axi al images are supplemented with 3D reconstructions and MIP images which were post-processed at an in dependent workstation. NASCET criteria used. Contrast used:65 cc mL of Isovue 370 with IV Contrast, Oral contrast used: None. FINDINGS: CTA HEAD: No evidence of acute intracranial hemorrhage, mass effect, or midline shift. The ventricles, sulci, a nd cisterns are unremarkable. The visualized portions of the internal carotid arteries, middle cerebral arteries, anterior cerebral arteries, and posterior cerebral arteries are patent. The basilar and vertebral arteries are patent. CTA NECK: Right Carotid System: The common carotid artery and external carotid artery are patent. The carotid bifurcation demonstrate s no evidence of hemodynamically significant stenosis. The remaining portions of the internal carotid artery demonstrate normal size without significant narrowing. Left Carotid System: The common carotid artery and external carotid artery are patent. The carotid bifurcation demonstrate s no evidence of hemodynamically significant stenosis. The remaining portions of the internal carotid artery demonstrate normal size without significant narrowing. Vertebral arteries are patent without evidence hemodynamically significant stenosis. There is a three-vessel aortic arch. The origins of the great vessels are patent. No evidence of hemo dynamically significant stenosis. Upper thorax: Left pleural effusion. Right upper lobe airspace opacities partially visualized. IMPRESSION: 1. No evidence of dissection of the cervical internal carotid arteries or vertebral arteries or any e vidence of significant stenosis at the carotid bifurcations. 2. No evidence of intracranial high-grade stenosis or intracranial aneurysm. 3. Airspace opacities in the right lung correlate for pneumonia versus pulmonary infarction the setti ng of positive pulmonary embolus. 4. Small left pleural effusion partially visualized.
[2023-08-14 21:21] LABS: Basophils % (A) 0 %; Eosinophils % (A) 0 %; HCT 41.3 % (39.0-53.0); HGB 13.1 gm/dL (13.0-17.5); Hypochromasia Slight; Lymphocytes # (A) 0.7 k/uL (1.0-4.8); Lymphocytes % (A) 8 %; MCH 27.3 pg (25.0-35.0); MCHC 31.8 g/dL (31.0-37.0); MCV 85.9 fL (80.0-100.0); Mean Platelet Volume 10.5; Monocytes # (A) 0.1 k/uL (0-1.0); Monocytes % (A) 1 %; Neutrophils # (A) 8.6 k/uL (1.3-7.7); Neutrophils % (A) 91 %; Platelet Count 281 k/uL (150-450); RDW 14.1 % (11.5-15.5); WBC 9.5 k/uL (3.8-10.6)
[2023-08-15 05:23] LABS: Basophils % (A) 0 %; Eosinophils % (A) 0 %; HCT 38.6 % (39.0-53.0); HGB 12.3 gm/dL (13.0-17.5); Hypochromasia Slight; Lymphocytes # (A) 1.1 k/uL (1.0-4.8); Lymphocytes % (A) 7 %; MCH 27.1 pg (25.0-35.0); MCHC 31.8 g/dL (31.0-37.0); MCV 85.2 fL (80.0-100.0); Mean Platelet Volume 10.8; Monocytes # (A) 0.6 k/uL (0-1.0); Monocytes % (A) 4 %; Neutrophils # (A) 12.7 k/uL (1.3-7.7); Neutrophils % (A) 88 %; Platelet Count 294 k/uL (150-450); RBC 4.53 m/uL (4.30-5.90); WBC 14.5 k/uL (3.8-10.6)
[2023-08-15 05:34] LABS: ALT 23 U/L (4-49); AST 21 U/L (17-59); African American GFR (CKD) >90 (>60 ml/min/1.73 sqM); Albumin 3.3 g/dL (3.5-5.0); Alkaline Phosphatase 95 U/L (38-126); Anion Gap 12 mmol/L; Blood Urea Nitrogen 10 mg/dL (9-20); Calcium 9.1 mg/dL (8.4-10.2); Carbon Dioxide 20 mmol/L (22-30); Chloride 106 mmol/L (98-107); Glucose 155 mg/dL (74-99); Non-African American GFR(CKD) >90 (>60 ml/min/1.73 sqM); Potassium 4.8 mmol/L (3.5-5.1); Sodium 138 mmol/L (137-145); Total Bilirubin 0.6 mg/dL (0.2-1.3); Total Protein 6.6 g/dL (6.3-8.2)
[2023-08-15] MEDS: HEPARIN SOD,PORK IN 0.45% NACL 25,000 UNIT in 0.45% NACL 1 250ML.BAG IV SCH ×3 (05:51→18:14)
--- NOTE | 2023-08-15 07:23 | CA ---
Transthoracic Echo Report Name: Alexis Arthur Age: 43 Gender: M : 1980 Exam Date: 08/14/2023 16:51 Exam Location: [facility] Ht (in): 75 Wt (lb): 350 Ordering Physician: John Osorio DO Attending/Referring Phys: [id number], Devon Floater Operator Pam Delgado, BETH Procedure CPT: Indications: PE? Cardiac Hx: Technical Quality: Technically difficult study Contrast 1: Definity Total Dose (mL): 2 Contrast 2: Total Dose (mL): MEASUREMENTS (Male / Female) Normal Values 2D ECHO LV Diastolic Diameter PLAX 4.1 cm 4.2 - 5.9 / 3.9 - 5.3 cm LV Systolic Diameter PLAX 3.1 cm IVS Diastolic Thickness 1.8 cm 0.6 - 1.0 / 0.6 - 0.9 cm LVPW Diastolic Thickness 1.7 cm 0.6 - 1.0 / 0.6 - 0.9 cm LV Relative Wall Thickness 0.9 RV Internal Dim ED PLAX 4.0 cm LA Systolic Diameter LX 3.9 cm 3.0 - 4.0 / 2.7 - 3.8 cm M-MODE Aortic Root Diameter MM 3.8 cm MV E Point Septal Separation 0.7 cm AV Cusp Separation MM 2.1 cm DOPPLER AV Peak Velocity 119.8 cm/s AV Peak Gradient 5.7 mmHg MV Area PHT 2.8 cm??? Mitral E Point Velocity 52.0 cm/s Mitral A Point Velocity 77.5 cm/s Mitral E to A Ratio 0.7 MV Deceleration Time 272.8 ms TR Peak Velocity 341.5 cm/s TR Peak Gradient 46.7 mmHg Right Ventricular Systolic Press 66.0 mmHg FINDINGS Left Ventricle Left ventricular ejection fraction is estimated at 55-60 %. Small left ventricular cavity. Normal left ventricular wall motion. Severely increased left ventricular wall thickness. Right Ventricle Severe right ventricular dilatation. Severe pulmonary hypertension. Right ventricular systolic pressure estimated at 66 mm hg.reduced right ventricular global systolic function. Right Atrium Right atrium not well visualized. Left Atrium Normal left atrial size. Mitral Valve Structurally normal mitral valve. No mitral stenosis, regurgitation or prolapse. Aortic Valve Trileaflet aortic valve. No aortic valve stenosis or regurgitation. Tricuspid Valve Structurally normal tricuspid valve. Mild tricuspid regurgitation. Pulmonic Valve Pulmonic valve not well visualized. No pulmonic regurgitation. Pericardium No pericardial effusion. Aorta Mild aortic dilatation at the level of the sinuses of valsalva 38 mm CONCLUSIONS Technically difficult study. Definity ECHO contrast used for improved visualization of the endocardial borders (inadequate visualization of two or more contiguous segments). Normal left ventricle size and systolic function with severe hypertrophy Severely dilated right ventricle with severe pulmonary hypertension and global hypokinesis Very limited Doppler study with mild tricuspid regurgitation Previewed by: Dr. Yumiko Padilla MD (Electronically Signed) Final Date: 15 August 2023 07:22
[2023-08-15] MEDS: ALBUTEROL NEBULIZED 2.5 MG/3 ML INHALATION SCH ×4 (08:10→19:54)
[2023-08-15] MEDS: NICOTINE 21MG/24HR PATCH TRANSDERM SCH (08:40)
--- NOTE | 2023-08-15 08:48 | P.PN ---
Subjective Progress Note Date: 08/15/23 Principal diagnosis: Submassive pulmonary embolism with right heart strain Alexis is seen in the ICU status post EKOS procedure however TPA was stopped about an hour after procedure was started due to reported neuro deficits ported right upper extremity weakness. Patient is currently alert and oriented 3. He was recently given Ativan for anxiety so he has a little drowsy. He is able to move bilateral lower extremities and upper extremities. Right hand grasp weaker than the left. Patient currently has a catheter and guiding wires in place with heparin running. TPA is on hold. Awaiting neurology to evaluate patient. Patient appears to be breathing hard, he is requiring 15 L of high flow nasal cannula with oxygen saturation 92-94%. Nursing reports if they decrease oxygen his levels are dropping into the 80s. He states his breathing is easier, denies any chest pain, no pain in the lower extremities. Objective - Vital Signs Vital signs: Vital Signs Temp 97.4 F L 08/15/23 04:00 Pulse 55 L 08/15/23 07:00 Resp 14 08/15/23 07:00 BP 155/91 08/15/23 07:00 Pulse Ox 93 L 08/15/23 07:00 FiO2 Intake & Output 08/14/23 08/15/23 08/15/23 18:59 06:59 18:59 Intake Total 1315 70 Output Total 1380 0 Balance -65 70 Weight 158.757 kg Intake: IV 775 70 Sodium Chloride 0.9% 1, 775 70 000 ml @ 75 mls/hr IV . [id number] [facility] Rx#:[id number] Oral 540 Output: Urine 1380 0 - Exam General appearance: The patient is alert, oriented, appears in no acute distress. HET: Head is normocephalic and atraumatic. Pupils are equal and reactive. Neck: Supple. Heart: Regular. Lungs: Equal expansion, clear to auscultation, patient does appear to be breathing hard. Abdomen: Soft, nontender, nondistended. Extremities: Normal skin color and turgor. Pupil bilateral DP pulses. Right groin with catheters in place with some bruising noted on to dressing however appears old. Neurological: Patient is alert and oriented 3. Answers questions appropriately and follows directions. Right hand grasp weaker than left, however able to move bilateral upper extremities as well as lower. - Labs CBC & Chem 7: 08/15/23 04:50 08/15/23 04:50 Labs: Abnormal Lab Results - Last 24 Hours (Table) 08/14/23 08/14/23 08/14/23 Range/Units 09:36 09:36 09:36 WBC 14.5 H (3.8-10.6) k/uL Hgb (13.0-17.5) gm/dL Hct (39.0-53.0) % Neutrophils # 11.1 H (1.3-7.7) k/uL Lymphocytes # (1.0-4.8) k/uL Eosinophils # 1.4 H (0-0.7) k/uL APTT (22.0-30.0) sec Fibrinogen (200-500) mg/dL D-Dimer (<0.60) mg/L FEU Carbon Dioxide (22-30) mmol/L Glucose 124 H (74-99) mg/dL POC Glucose (mg/dL) (70-110) mg/dL Plasma Lactic Acid Selvin 3.0 H* (0.7-2.0) mmol/L Troponin I (0.000-0.034) ng/mL Albumin (3.5-5.0) g/dL 08/14/23 08/14/23 08/14/23 Range/Units 09:36 12:58 13:10 WBC (3.8-10.6) k/uL Hgb (13.0-17.5) gm/dL Hct (39.0-53.0) % Neutrophils # (1.3-7.7) k/uL Lymphocytes # (1.0-4.8) k/uL Eosinophils # (0-0.7) k/uL APTT (22.0-30.0) sec Fibrinogen (200-500) mg/dL D-Dimer 7.81 H (<0.60) mg/L FEU Carbon Dioxide (22-30) mmol/L Glucose (74-99) mg/dL POC Glucose (mg/dL) (70-110) mg/dL Plasma Lactic Acid Selvin (0.7-2.0) mmol/L Troponin I 0.289 H* 0.431 H* (0.000-0.034) ng/mL Albumin (3.5-5.0) g/dL 08/14/23 08/14/23 08/14/23 Range/Units 17:43 19:45 20:50 WBC (3.8-10.6) k/uL Hgb (13.0-17.5) gm/dL Hct (39.0-53.0) % Neutrophils # (1.3-7.7) k/uL Lymphocytes # (1.0-4.8) k/uL Eosinophils # (0-0.7) k/uL APTT 31.6 H (22.0-30.0) sec Fibrinogen (200-500) mg/dL D-Dimer (<0.60) mg/L FEU Carbon Dioxide (22-30) mmol/L Glucose (74-99) mg/dL POC Glucose (mg/dL) 148 H (70-110) mg/dL Plasma Lactic Acid Selvin (0.7-2.0) mmol/L Troponin I 0.406 H* (0.000-0.034) ng/mL Albumin (3.5-5.0) g/dL 08/14/23 08/15/23 08/15/23 Range/Units 20:50 00:25 04:50 WBC 14.5 H (3.8-10.6) k/uL Hgb 12.3 L (13.0-17.5) gm/dL Hct 38.6 L (39.0-53.0) % Neutrophils # 8.6 H 12.7 H (1.3-7.7) k/uL Lymphocytes # 0.7 L (1.0-4.8) k/uL Eosinophils # (0-0.7) k/uL APTT (22.0-30.0) sec Fibrinogen 523 H (200-500) mg/dL D-Dimer (<0.60) mg/L FEU Carbon Dioxide (22-30) mmol/L Glucose (74-99) mg/dL POC Glucose (mg/dL) (70-110) mg/dL Plasma Lactic Acid Selvin (0.7-2.0) mmol/L Troponin I (0.000-0.034) ng/mL Albumin (3.5-5.0) g/dL 08/15/23 Range/Units 04:50 WBC (3.8-10.6) k/uL Hgb (13.0-17.5) gm/dL Hct (39.0-53.0) % Neutrophils # (1.3-7.7) k/uL Lymphocytes # (1.0-4.8) k/uL Eosinophils # (0-0.7) k/uL APTT (22.0-30.0) sec Fibrinogen (200-500) mg/dL D-Dimer (<0.60) mg/L FEU Carbon Dioxide 20 L (22-30) mmol/L Glucose 155 H (74-99) mg/dL POC Glucose (mg/dL) (70-110) mg/dL Plasma Lactic Acid Selvin (0.7-2.0) mmol/L Troponin I (0.000-0.034) ng/mL Albumin 3.3 L (3.5-5.0) g/dL Assessment and Plan Assessment: 1. Submassive bilateral pulmonary emboli 2. Acute hypoxia 3. Right hand weakness, rule out TIA/CVA 4. Obesity 5. Current every day smoker Plan: 1. Continue ICU care 2. Continue to hold TPA for now, continue heparin through pulmonary artery catheter Patient was discussed with neurology, they wanted a MRI of the brain without contrast ordered however due to patient's pulmonary artery catheters and sheath patient is unable to undergo MRI at this time. We will await further recommendations from neurology regarding restarting TPA or possible thrombectomy with high-dose heparin, versus thrombectomy with IVC filter placement. Patient will need to continue bed rest, lying flat. Make nothing by mouth after breakfast. Further recommendations coming per vascular surgeon. The impression and plan of care has been dictated as directed. I performed a history and examination of this patient, discussed the same with the dictator. I agree with the dictator's note ,documented as a scribe. Any additional findings or plans will be noted.
--- NOTE | 2023-08-15 10:06 | CT ---
EXAMINATION TYPE: CT brain wo con CT DLP: 1138.4 mGycm, Automated exposure control for dose reduction was used. DATE OF EXAM: 08/15/2023 9:35 AM COMPARISON: 08/14/2023.. CLINICAL INDICATION:Male, 43 years old with history of stroke like symptoms, stroke like symptoms TECHNIQUE: Brain: Axial CT images of the brain were obtained with coronal and sagittal reformats created and rev iewed. Contrast used: None. Oral contrast used: None. FINDINGS: Brain: Extra-axial spaces: No abnormal extra-axial fluid collections. Ventricular system: Within normal limits Cerebral parenchyma: No acute intraparenchymal hemorrhage or mass effect. The field-white junction is well differentiated. Cerebellum: Unremarkable. Mass effect: No evidence of midline shift. Intracranial vasculature: unremarkable Soft tissues: Normal. Calvarium/osseous structures: No depressed skull fracture. Paranasal sinuses and mastoid air cells: Mild scattered paranasal sinus disease. Visualized orbits: Orbital contents are intact. IMPRESSION: No acute intracranial process.
--- NOTE | 2023-08-15 10:36 | P.CNNES ---
History of Present Illness Consult date: 08/15/23 Requesting physician: Tank Dickerson Reason for Consult: Stroke code History of Present Illness: Patient is a 43-year-old left-handed male, otherwise healthy, on no medications, came to the hospital by ambulance yesterday at 9:01 AM for shortness of breath. As per EMS flow sheet, when they arrived, patient was sitting in chair. Patient was alert and oriented 4, complaining of shortness of breath. He had pneumonia about a month ago. Patient has been short of breath, but is worse since the morning. Patient was noted to be on oxygen via nasal cannula at 6 L per minute. Twelve-lead EKG showed no abnormalities. Patient was given nebulizer treatment with albuterol. Patient's vitals at the scene was blood pressure 167/133, which improved to 174/99. Pulse rate 109, respiration 18, saturation 98%. Blood test shows WBC 14.5, hemoglobin 13.0, platelets 277, PT/PTT normal. Basic metabolic panel normal, lactate elevated 3.0, hepatic panel normal, troponin mildly elevated 0.289. Graves virus CR negative. CTA of the chest showed bilateral pulmonary emboli. There is dilation of the right heart which is suggestive of right heart strain. No evidence of thoracic aortic aneurysm or dissection. Moderate to large left pleural effusion. Ultrasound of the lower extremities was positive for DVT in the left lower extremity, in the left popliteal vein. The vascular surgery took the patient to catheterization lab yesterday for EKOS, when he was found to have DVT in the left lower extremity. When patient came back from Lap, patient was noted to have slurred speech and complete paralysis of the right upper extremity. There was no feeling to the right arm. Patient had a stroke code activated last night at around 7:54 PM. Last known well was 7:30 PM. NIH stroke scale was documented 7. CT head was negative. I personally reviewed CT head at this time, shows no acute process. CTA of head and neck showed no large vessel occlusion. Patient was on IV heparin and the PTT was 31.6/30.0. My call started this morning at 8 AM, and I am not aware of the sequence of events last night. I could not find documentation if neuro intervention was contacted. It appears patient was not a candidate for TPA because of placement of EKOS, had received TPA and was on heparin. Patient has received alteplase 4 mg IV once at 7 PM yesterday as per OCT. Patient at present appears slightly encephalopathic, slightly short of breath. He has received Ativan 1 mg and morphine 2 mg recently, which may partly be contributing. He appears slightly delirious with limited attention span. Patient has smoked 1 pack per day for 20 years. Drinks alcohol rarely. Denies hypertension or diabetes. He does not take any antiplatelet medication at home. Review of Systems Constitutional: Denies chills, Denies fever Eyes: denies blurred vision, denies diplopia, denies pain Ears: deny: decreased hearing, ear discharge Ears, nose, mouth and throat: Denies headache, Denies sore throat, Denies melissa tigo Cardiovascular: Reports shortness of breath, Denies chest pain, Denies lightheadedness Respiratory: Reports cough, Reports excessive sputum, Reports wheezing Gastrointestinal: Denies abdominal pain, Denies diarrhea, Denies nausea, Denies vomiting Genitourinary: Denies incontinence Musculoskeletal: Reports muscle weakness, Denies low back pain, Denies neck pain Integumentary: Denies pruritus, Denies rash Neurological: Reports as per HPI Psychiatric: Denies anxiety, Denies depression Endocrine: Reports fatigue, Reports weight change Past Medical History Past Medical History: No Reported History History of Any Multi-Drug Resistant Organisms: None Reported Past Surgical History: Ear Surgery Additional Past Surgical History / Comment(s): cholecystectomy Past Psychological History: No Psychological Hx Reported Smoking Status: Current every day smoker Past Alcohol Use History: Rare Past Drug Use History: Marijuana Medications and Allergies Home Medications Medication Instructions Recorded Confirmed Type No Known Home Medications 08/14/23 08/14/23 History Allergies Allergy/AdvReac Type Severity Reaction Status Date / Time No Known Allergies Allergy Verified 08/14/23 11:07 Physical Examination - Vital Signs Vital Signs: Vital Signs Temp Pulse Pulse Resp BP BP Pulse Ox 08/15/23 08:00 51 L 6 L 134/65 96 08/15/23 07:00 55 L 14 155/91 93 L 08/15/23 06:00 68 14 125/66 92 L 08/15/23 05:00 63 15 122/71 94 L 08/15/23 04:00 97.4 F L 74 12 130/69 94 L 08/15/23 03:00 73 16 138/71 93 L 08/15/23 02:00 72 12 114/93 91 L 08/15/23 01:00 85 16 121/71 91 L 08/15/23 00:00 97.9 F 87 93 20 121/61 121/77 92 L 08/14/23 23:00 101 H 101 H 12 137/77 121/61 92 L 08/14/23 22:00 107 H 107 H 17 154/86 137/77 92 L 08/14/23 21:00 109 H 101 H 10 L 150/103 154/86 93 L 08/14/23 20:31 96 08/14/23 20:23 97.4 F L 22 146/95 92 L 08/14/23 20:18 84 92 L 08/14/23 20:00 164/99 08/14/23 19:54 98.6 F 98 22 170/110 91 L 08/14/23 19:44 101 H 15 91 L 08/14/23 18:00 148/99 08/14/23 17:00 86 40 H 144/109 91 L 08/14/23 16:00 100 46 H 147/89 90 L 08/14/23 15:00 92 23 94 L 08/14/23 14:01 100 18 08/14/23 14:00 96 20 137/96 90 L 08/14/23 13:52 94 18 08/14/23 13:44 26 H 97 08/14/23 13:28 90 20 117/90 100 08/14/23 13:00 103 H 17 105/87 91 L 08/14/23 12:46 98.2 F 96 20 128/85 92 L 08/14/23 12:05 100 18 08/14/23 12:00 96 10 L 131/86 97 08/14/23 11:57 97 18 08/14/23 11:00 109 H 16 132/86 90 L 08/14/23 10:14 103 H 22 148/80 92 L 08/14/23 10:00 93 16 90 L Intake and Output 08/14/23 08/15/23 08/15/23 22:59 06:59 14:59 Intake Total 215 1100 210 Output Total 480 900 0 Balance -265 200 210 Intake: IV 215 560 210 Sodium Chloride 0.9% 1, 215 560 210 000 ml @ 75 mls/hr IV . [id number] [facility] Rx#:[id number] Oral 540 Output: Urine 480 900 0 Patient is a middle aged male, who is laying in the bed, appears to be in mild distress, on oxygen via nasal cannula. Patient is alert awake oriented, slightly encephalopathic. He knows his name, stated was 23 years age, but when I was doing NIH stroke scale, he said 43. He knows that he is in [place] in [place] and the month is July and the year is . Speech is slightly dysarthric and patient has mild expressive aphasia. He was still able to name objects like fingers, knuckles, pen, but not able to name the ear lobe. Patient also having some word finding problem, thought block while routine conversation. His comprehension is fairly intact, although was not consistent with sensory examination. patient and repeat very well. Patient able to read some words and sentences and missing some words and sometimes neglecting part of the vision on the right side. Attention, concentration is moderately limited and fund of knowledge difficult to assess because of mentation. On cranial nerve examination, pupils are equal, round and reacting to light, visual gandhi are full on confrontation, with no neglect on double simultaneous stimulation. Extraocular muscles are intact with no nystagmus. Face is symmetric, tongue protrudes to the midline. Palatal elevation and sensation normal, hearing and shoulder shrug is decreased on the right, facial sensation normal. On muscle strength testing, patient has flaccid right upper extremity. The strength is normal in the left arm and both legs. Sometimes he gives away with left ankle dorsiflexion as compared to the right. His left leg also got tired while holding up as compared to the right. Deep tendon reflexes are symmetric 2+ in the upper limbs, 3 at the knees, 2+ ankles and plantars are probable withdrawal versus upgoing bilaterally. Sensory to touch is equal, but he does neglect one side, as he only continues to say "right". He was not able to feel both sides together. Cerebellar function showed no ataxia for [id number] testing on the left, cannot perform on the right. No ataxia for [id number] testing on either side. Tone and bulk of muscles normal. Gait deferred.. On general examination, there is no carotid bruit or murmur, S1-S2 audible. Chest is clear on consultation. Abdomen is soft nontender. No organomegaly, bowel sounds present. Peripheral pulses are present. No peripheral edema. Results - Laboratory Findings CBC and BMP: 08/15/23 18:57 08/15/23 04:50 Abnormal Lab Findings: Abnormal Labs 08/14/23 08/14/23 08/14/23 09:36 09:36 09:36 WBC 14.5 H Hgb Hct Neutrophils # 11.1 H Lymphocytes # Eosinophils # 1.4 H APTT Fibrinogen D-Dimer Carbon Dioxide Glucose 124 H POC Glucose (mg/dL) Plasma Lactic Acid Selvin 3.0 H* Troponin I Albumin 08/14/23 08/14/23 08/14/23 09:36 12:58 13:10 WBC Hgb Hct Neutrophils # Lymphocytes # Eosinophils # APTT Fibrinogen D-Dimer 7.81 H Carbon Dioxide Glucose POC Glucose (mg/dL) Plasma Lactic Acid Selvin Troponin I 0.289 H* 0.431 H* Albumin 08/14/23 08/14/23 08/14/23 17:43 19:45 20:50 WBC Hgb Hct Neutrophils # Lymphocytes # Eosinophils # APTT 31.6 H Fibrinogen D-Dimer Carbon Dioxide Glucose POC Glucose (mg/dL) 148 H Plasma Lactic Acid Selvin Troponin I 0.406 H* Albumin 08/14/23 08/15/23 08/15/23 20:50 00:25 04:50 WBC 14.5 H Hgb 12.3 L Hct 38.6 L Neutrophils # 8.6 H 12.7 H Lymphocytes # 0.7 L Eosinophils # APTT Fibrinogen 523 H D-Dimer Carbon Dioxide Glucose POC Glucose (mg/dL) Plasma Lactic Acid Selvin Troponin I Albumin 08/15/23 04:50 WBC Hgb Hct Neutrophils # Lymphocytes # Eosinophils # APTT Fibrinogen D-Dimer Carbon Dioxide 20 L Glucose 155 H POC Glucose (mg/dL) Plasma Lactic Acid Selivn Troponin I Albumin 3.3 L Assessment and Plan Assessment: * Acute ischemic stroke, manifesting with right arm paresis, mild right-sided neglect and mild expressive aphasia, with NIH stroke scale of 6. Patient's stroke onset was after patient underwent cannulation of the right common femoral vein 2, and placement of pulmonary artery catheter with initiation of TPA thrombolysis with [place] catheter bilaterally. * Acute left lower extremity DVT, with submassive bilateral PE. * Status post EKOS 08/14/2023 * Rule out hypercoagulable state * Recent admission for pneumonia. * Tobacco use * Obesity Plan: * MRI of the brain without contrast, to evaluate for the extent of acute stroke. Patient cannot have MRI because of presence of presence of [place] catheter bilaterally. * Repeat stat CT head performed, which again did not reveal any acute ischemic process (12 hours post stroke onset). No hemorrhage. I personally reviewed CT head, agree with the findings. * 2-D echo revealed normal left ventricular size and systolic function with EF 55-60%. Severely increased left-ventricular wall thickness. Normal left ventricular wall motion. Severe right ventricular dilation with global hypokinesis. Severe pulmonary hypertension. Left atrium is normal in size. * Patient may need JOYA for further evaluation of any embolic source, possible PFO. * CTA head and neck showed: No evidence of dissection of the cervical internal carotid arteries or vertebral arteries or any evidence of significant stenosis at the carotid bifurcations. No evidence of intracranial high-grade stenosis or intracranial aneurysm. Air space opacities in the right lung, correlate for pneumonia versus pulmonary infarction in the setting of pulmonary embolus. Small left pleural effusion partially visualized. * Fasting a.m. lipid panel * Hemoglobin A1c * Permissive hypertension for next 24-48 hours, if okay from cardiopulmonary standpoint. * Patient has bilateral sub-massive pulmonary emboli. Patient probably has an acute ischemic stroke with right arm paresis and mild expressive aphasia. TPA at this time is contraindicated because of an acute stroke and risk of hemorrhagic conversion. Likewise heparin high-dose infusion is also relatively contraindicated because of an acute stroke. However the risk and benefits ratio has to be considered. If the risk of any procedure/treatment option is necessary, and life threatening (if that procedure/treatment is put on hold), then I would suggest to go with it, although to remember mild to moderate hemorrhagic risk with one of those options. Neurologically clear for thrombectomy, however would suggest avoid hypotension. IVC filter would be preferable than high-dose heparin, but if heparin is needed, then can be started without bolus if possible. * Consider starting aspirin 325 mg daily, when medically cleared. * Consider hematology consultation for hypercoagulable state. * Neuro checks every 30 minutes. * Telemetry monitoring rule out any arrhythmia * PT, OT, speech therapy * Recommend complete tobacco cessation. * DVT prophylaxis: Patient on heparin. * Neurology will continue to follow. Thank you for the consult. Time with Patient: Greater than 30
--- NOTE | 2023-08-15 10:59 | XR ---
EXAMINATION TYPE: XR chest 1V portable DATE OF EXAM: 08/15/2023 Comparison: 08/14/2023 Clinical History: 43-year-old male B/L PE, Effusions Findings: Portable exam further limited by semiupright positioning, rightward obliquity, and rightward patient rotation. Stimulator array noted projecting at the lower chest. Heart mildly enlarged. Interstitial d ensity is present. Partially layering small to moderate left pleural effusion. Impression: 1. Possible mild pulmonary vascular congestion. Limited, rotated, semiupright exam. 2. Partially layering [id number] left pleural effusion.
--- NOTE | 2023-08-15 11:38 | P.PN ---
Subjective Progress Note Date: 08/15/23 Principal diagnosis: Pulmonary embolism. Pulmonary consult dated 08/14/2023. 43-year-old male who was seen in the emergency department, room 7. The patient came into the hospital, complaining of shortness of breath. He's been having shortness of breath now for some time, seemingly started about 1 month ago, when he was in the emergency room here, for an episode of shortness of breath, and was discovered to have left lower lobe pneumonia. The patient was not admitted to the hospital that time. He does not have a family doctor. The patient presents today, August 14, shortness of breath. The patient apparently had low saturations according to EMS, had difficulty breathing. The patient is currently on 6 L of oxygen. Is getting saline at KVO, and a heparin drip. When he was here, for pneumonia 1 month ago, he was discharged with Augmentin and a Z-Amilcar. The patient has been smoking for at least 30+ years. He does continue to smoke. He works as a construction plant operator, and only takes Mucinex [id number] at home. Again he does not have a family doctor. White count 14.5, hemoglobin 13, hematocrit 40.7, platelet count normal. D-dimer was 7.81. Sodium 142, potassium 4.5, chlorides 105, CO2 24, BUN 12, and creatinine 0.82. Lactic acid was 3. Troponins were 0.289 and 0.431. N-terminal proBNP was 919, and repeat was 1450. Chest x-ray suggested infiltrate or consolidation in the left lower lobe, and/or effusion. CT angiogram shows bilateral pulmonary emboli, involving segmental branches of the left upper lobe pulmonary artery left lower lobe pulmonary artery, and segmental branches of the right lower lobe pulmonary artery and right upper lobe pulmonary artery. There is dilatation of the right heart, suggesting right heart strain. Venous Doppler studies are pending. Progress note dated 08/15/2023. 43-year-old male seen yesterday in consultation. Please see the note above. The patient was admitted to the hospital with a diagnosis of increasing shortness of breath. The patient was found to have bilateral pulmonary emboli, and right heart strain, and CT angiogram. The vascular surgeon to the patient to the catheterization laboratory yesterday, for EKOS. The patient was discovered to have a left lower extremity DVT. In addition to all of this, the patient had a code stroke called last night. He brain CT was negative, and CT angiogram was also negative. The patient is going to have a repeat brain CT today. The patient was on IV heparin. He was receiving oxygen by high flow nasal cannula at 15 L. Labs include a white count of 14.5, hemoglobin 12.3, hematocrit 38.6, and a normal platelet count. Sodium 138, potassium 4.8, chlorides 106, CO2 20, BUN 10, creatinine 0.73. Albumin is 3.3. Today's repeat brain CT, showed nothing acute. Chest x-ray showed some mild pulmonary vascular congestion, and a left-sided pleural effusion. Objective - Vital Signs Vital signs: Vital Signs Temp 97.4 F L 08/15/23 04:00 Pulse 66 08/15/23 11:00 Resp 14 08/15/23 11:00 BP 141/81 08/15/23 11:00 Pulse Ox 93 L 08/15/23 11:00 FiO2 Intake & Output 08/14/23 08/15/23 08/15/23 18:59 06:59 18:59 Intake Total 1315 350 Output Total 1380 0 Balance -65 350 Weight 158.757 kg Intake: IV 775 350 Sodium Chloride 0.9% 1, 775 350 000 ml @ 75 mls/hr IV . [id number] [facility] Rx#:[id number] Oral 540 Output: Urine 1380 0 - Exam Mild to moderate respiratory distress, oriented 3, no conversational dyspnea or use of accessory muscles. HEENT examination is grossly unremarkable. Neck supple. Full range of motion. No adenopathy thyromegaly or neck vein distention. Cardiovascular examination reveals regular rhythm rate. S1-S2 normal. No S3 or S4. No discernible murmur noted. Heart sounds are distant. Heart rate 66 bpm. Lungs reveal clear breath sounds. Breath sounds are equal bilaterally. No adventitious lung sounds including wheezes rhonchi or crackles. Saturations are 93% on high flow nasal cannula. Abdomen soft bowel sounds are heard. No masses or tenderness. Extremities are intact. No cyanosis clubbing or edema. Skin is without rash or lesion. Neurologic examination is brief but nonfocal. - Labs CBC & Chem 7: 08/15/23 04:50 08/15/23 04:50 Labs: Abnormal Lab Results - Last 24 Hours (Table) 08/14/23 08/14/23 08/14/23 Range/Units 12:58 13:10 17:43 WBC (3.8-10.6) k/uL Hgb (13.0-17.5) gm/dL Hct (39.0-53.0) % Neutrophils # (1.3-7.7) k/uL Lymphocytes # (1.0-4.8) k/uL APTT (22.0-30.0) sec Fibrinogen (200-500) mg/dL D-Dimer 7.81 H (<0.60) mg/L FEU Carbon Dioxide (22-30) mmol/L Glucose (74-99) mg/dL POC Glucose (mg/dL) (70-110) mg/dL Troponin I 0.431 H* 0.406 H* (0.000-0.034) ng/mL Albumin (3.5-5.0) g/dL 08/14/23 08/14/23 08/14/23 Range/Units 19:45 20:50 20:50 WBC (3.8-10.6) k/uL Hgb (13.0-17.5) gm/dL Hct (39.0-53.0) % Neutrophils # 8.6 H (1.3-7.7) k/uL Lymphocytes # 0.7 L (1.0-4.8) k/uL APTT 31.6 H (22.0-30.0) sec Fibrinogen (200-500) mg/dL D-Dimer (<0.60) mg/L FEU Carbon Dioxide (22-30) mmol/L Glucose (74-99) mg/dL POC Glucose (mg/dL) 148 H (70-110) mg/dL Troponin I (0.000-0.034) ng/mL Albumin (3.5-5.0) g/dL 08/15/23 08/15/23 08/15/23 Range/Units 00:25 04:50 04:50 WBC 14.5 H (3.8-10.6) k/uL Hgb 12.3 L (13.0-17.5) gm/dL Hct 38.6 L (39.0-53.0) % Neutrophils # 12.7 H (1.3-7.7) k/uL Lymphocytes # (1.0-4.8) k/uL APTT (22.0-30.0) sec Fibrinogen 523 H (200-500) mg/dL D-Dimer (<0.60) mg/L FEU Carbon Dioxide 20 L (22-30) mmol/L Glucose 155 H (74-99) mg/dL POC Glucose (mg/dL) (70-110) mg/dL Troponin I (0.000-0.034) ng/mL Albumin 3.3 L (3.5-5.0) g/dL Assessment and Plan Assessment: Acute hypoxemic respiratory failure, secondary to bilateral pulmonary embolism, with possible right heart strain, based on the CTA. S/P EKOS, 08/14/2023. Left lower extremity DVT. Questionable CVA, but brain CT 2 is negative. Recent episode of pneumonia, one month ago, involving the left lower lobe, treated with antibiotics. History of chronic tobacco use and nicotine dependence. Rule out COPD. Obesity. Plan: Plan dated 08/14/2023. The patient was started on IV heparin. The patient should have a stat echocardiogram. The patient is getting Dopplers of the lower extremities. The patient's currently on 6 L and IV heparin. Vascular or cardiovascular service should be asked to see this patient, to determine whether or not he would be a candidate for EKOS or suction thrombectomy. Additional recommendations and suggestions are forthcoming. His hemodynamic status is currently stable with a blood pressure 128/85. They may choose to treat him conservatively with IV heparin, and eventually a factor X a inhibitor. Doppler of the lower extremities reveal a DVT on the left. Plan dated 08/15/2023. The patient is seen in the intensive care unit, room 257. The patient had a repeat brain CT this morning, which again showed nothing acute. The patient continues on IV heparin. The patient's on high flow nasal cannula. The patient did undergo EKOS yesterday, bilateral of the surgeons. We will continue to follow make recommendations where appropriate. Doppler of the left lower extremity was positive for DVT. Prognosis is guarded. Labs, x-rays, and medications are reviewed. Time with Patient: Greater than 30
--- NOTE | 2023-08-15 13:48 | P.PN ---
Subjective Progress Note Date: 08/15/23 Hospital Course: 43-year-old male with history of morbid obesity presenting with sudden onset shortness of breath. In the ED, temperature was 98.2, pulse 96, blood pressure 128/85, saturating at 92% on 6 L, currently at 97% on 15 L nonrebreather. White count 14.5, d-dimer 7.81, lactic acid 3, troponin 0.289 up to 0.431, proBNP 1400, potassium 4.5. CT each ear chest shows bilateral pulmonary emboli with right heart strain, moderate to large left pleural effusion. Chest x-ray indep endently interpreted, shows left pleural effusion. EKG independently interpreted shows evidence of S1 Q3 T3, and sinus tachycardia. Patient being admitted for submassive PE. Patient underwent EKOS. When he returned to ICU, patient had strokelike symptoms. Code stroke was called. CT head and CTA did not show any acute process or large vessel occlusion. Unable to do TPA as patient was getting thrombolysis. Repeat CT head also did not show any acute process. Neurology following. Patient is pending thrombectomy. Heme also consulted. Echocardiogram showed severely dilated right ventricle with severe pulmonary hypertension global hypokinesis. Venous Doppler showed positive DVT in the left leg. Subjective: Patient seen and examined at bedside. Continues to have shortness of breath. also had right sided weakness overnight. Pertinent positives and negatives as discussed above, a complete review of systems was performed and all other systems are negative. Vitals Signs Reviewed. General: nontoxic, no distress, appears at stated age, morbidly obese Derm: warm, dry Head: atraumatic, normocephalic, symmetric Eyes: EOMI, no lid lag, anicteric sclera Mouth: no lip lesion, mucus membranes moist Cardiovascular: S1S2 reg, no murmur Lungs: CTA bilateral, no rhonchi, no rales , no accessory muscle use, supplemental oxygen Abdominal: soft, nontender to palpation, no guarding, no appreciable organomegaly Ext: no gross muscle atrophy, no edema, no contractures Neuro: CN II-XI grossly intact, right arm weakness Psych: Alert, oriented, appropriate affect Data Reviewed Today: Pertinent Labs: WBC 14.5, hemoglobin 12.3, bicarb 20, creatinine 0.73 Imaging: Repeat head CT did not show any acute process. Chest x-ray and apparently interpreted shows left-sided pleural effusion, unchanged from yesterday Assessment and Plan: Patient is critically ill, prognosis guarded. Acute Submassive bilateral pulmonary embolism Acute left leg DVT acute hypoxic respiratory failure Leukocytosis, likely reactive Lactic acidosis, resolved NSTEMI, type 2 Acute left pleural effusion Acute CVA -Pending thrombectomy, on low-dose heparin drip, continue to monitor for signs of bleeding, as well as neurological activity -Vascular surgery note reviewed, hold TPA -continue to wean O2 -Nephrology note reviewed, unable to get an MRI at the moment, recommending IVC filter placement -Consider evaluation for a PFO -Mother has known MTHFR gene mutation, 3 prior DVTs, hematology also consulted -Pulmonology note reviewed, continue current management -Cardiology following, started on atorvastatin 40 Morbid obesity -outpt structured weight loss program DVT ppx: Low-dose heparin Code status: Full code Anticipated discharge place: Pending clinical course Anticipated discharge time: Pending clinical course Objective - Vital Signs Vital signs: Vital Signs Temp 97.4 F L 08/15/23 04:00 Pulse 66 08/15/23 13:00 Resp 15 08/15/23 13:00 BP 165/89 08/15/23 13:00 Pulse Ox 95 08/15/23 13:00 FiO2 Intake & Output 08/14/23 08/15/23 08/15/23 18:59 06:59 18:59 Intake Total 1315 490 Output Total 1380 0 Balance -65 490 Weight 158.757 kg Intake: IV 775 490 Sodium Chloride 0.9% 1, 775 490 000 ml @ 75 mls/hr IV . [id number] [facility] Rx#:[id number] Oral 540 Output: Urine 1380 0 - Labs CBC & Chem 7: 08/15/23 04:50 08/15/23 04:50 Labs: Abnormal Lab Results - Last 24 Hours (Table) 08/14/23 08/14/23 08/14/23 Range/Units 12:58 13:10 17:43 WBC (3.8-10.6) k/uL Hgb (13.0-17.5) gm/dL Hct (39.0-53.0) % Neutrophils # (1.3-7.7) k/uL Lymphocytes # (1.0-4.8) k/uL APTT (22.0-30.0) sec Fibrinogen (200-500) mg/dL D-Dimer 7.81 H (<0.60) mg/L FEU Carbon Dioxide (22-30) mmol/L Glucose (74-99) mg/dL POC Glucose (mg/dL) (70-110) mg/dL Troponin I 0.431 H* 0.406 H* (0.000-0.034) ng/mL Albumin (3.5-5.0) g/dL 08/14/23 08/14/23 08/14/23 Range/Units 19:45 20:50 20:50 WBC (3.8-10.6) k/uL Hgb (13.0-17.5) gm/dL Hct (39.0-53.0) % Neutrophils # 8.6 H (1.3-7.7) k/uL Lymphocytes # 0.7 L (1.0-4.8) k/uL APTT 31.6 H (22.0-30.0) sec Fibrinogen (200-500) mg/dL D-Dimer (<0.60) mg/L FEU Carbon Dioxide (22-30) mmol/L Glucose (74-99) mg/dL POC Glucose (mg/dL) 148 H (70-110) mg/dL Troponin I (0.000-0.034) ng/mL Albumin (3.5-5.0) g/dL 08/15/23 08/15/23 08/15/23 Range/Units 00:25 04:50 04:50 WBC 14.5 H (3.8-10.6) k/uL Hgb 12.3 L (13.0-17.5) gm/dL Hct 38.6 L (39.0-53.0) % Neutrophils # 12.7 H (1.3-7.7) k/uL Lymphocytes # (1.0-4.8) k/uL APTT (22.0-30.0) sec Fibrinogen 523 H (200-500) mg/dL D-Dimer (<0.60) mg/L FEU Carbon Dioxide 20 L (22-30) mmol/L Glucose 155 H (74-99) mg/dL POC Glucose (mg/dL) (70-110) mg/dL Troponin I (0.000-0.034) ng/mL Albumin 3.3 L (3.5-5.0) g/dL
[2023-08-15] MEDS ORDERED: LIDOCAINE 1% INJ 10MG/ML (20 ML MDV) ONE (14:23)
[2023-08-15] MEDS ORDERED: IV FLUID CONTINUATION 700 ML IV ONE (14:28)
[2023-08-15] MEDS ORDERED: fentaNYL (PF) 50 MCG/ML 2 ML AMP ONE (14:57)
[2023-08-15] MEDS ORDERED: LIDOCAINE 1% INJ 10MG/ML (20 ML MDV) SQ ONE (15:16)
[2023-08-15] MEDS ORDERED: HEPARIN SODIUM 1,000 UN/ML (10ML VL) ONE (16:03)
[2023-08-15] MEDS ORDERED: HEPARIN SODIUM 1,000 UN/ML (10ML VL) IV ONE (16:03)
[2023-08-15] MEDS ORDERED: PROTAMINE SULFATE 10 MG/ML 5 ML VIAL ONE (17:02)
[2023-08-15] MEDS ORDERED: PROTAMINE SULFATE 10 MG/ML 5 ML VIAL IV ONE (17:04)
[2023-08-15] MEDS ORDERED: IOPAMIDOL-370 100ML BTL INJ ONE ×2 (17:06)
--- NOTE | 2023-08-15 17:20 | P.CONS ---
History of Present Illness - Reason for Consult Consult date: 08/15/23 Hypercoagulable state - Chief Complaint Shortness of breath - History of Present Illness Mr. Arthur is a 43-year-old gentleman with no known past medical history, but does have history significant for cigarette smoking we were consulted with regards to possible hypercoagulable state. Mr. Arthur went down to the OR for thrombectomy at the time I was going to see him. History is obtained from prior documentation. He presented to [facility] on 08/14/2023 with increased dyspnea having started approximately 1 month ago. He did present to the ED at that time and had imaging done that was consistent with left lower lobe pneumonia. He was not clear if he took antibiotics at that time. He had been smoking cigarettes actively prior to admission and has been doing so for at least 20 to 30 years. On presentation, chest x-ray noted small left pleural effusion with adjacent atelectasis with possible consolidation. CTA of the chest noted bilateral pulmonary emboli with dilated right heart concerning for right heart strain. Moderate to large left pleural effusion was also noted. Doppler of the lower extremities bilaterally was positive for DVT in the popliteal vein. Labs are notable for elevated troponin x 2 as well as mild neutrophilic leukocytosis with WBC 14.5 (ANC 11.1). Hemoglobin and platelets were normal. CMP revealed no acute metabolic abnormalities. Echocardiogram revealed normal left ventricular size and systolic function with severe hypertrophy and severely dilated right ventricle with severe pulmonary hypertension and global hypokinesis. He was requiring 15 L of high flow nasal cannula due to to acute hypoxic respiratory failure. Given the right heart strain and acute hypoxic respiratory failure, he underwent EKOS directed tPA thrombolysis. Subsequently, his hospitalization course has been complicated by concern for acute stroke with right-sided weakness and slurred speech. CT brain without contrast revealed no cute intracranial process with repeat brain CT on 08/15/2023 revealing no acute intracranial process. CT angiography noted no evidence of dissection of the carotid or vertebral arteries or stenosis at the carotid bifurcations. At this time, he was on high intensity heparin drip for anticoagulation. Due to concern for potential hemorrhagic conversion, this was stopped and was taken to the operating room for thrombectomy with plan for placement of IVC filter. He has been documented as having family history of MTHFR mutation. Because of this, hematology was consulted for hypercoagulable state. Review of Systems Unable to obtain due to being off the floor for thrombectomy Past Medical History Past Medical History: No Reported History History of Any Multi-Drug Resistant Organisms: None Reported Past Surgical History: Ear Surgery Additional Past Surgical History / Comment(s): cholecystectomy Past Psychological History: No Psychological Hx Reported Smoking Status: Current every day smoker Past Alcohol Use History: Rare Past Drug Use History: Marijuana Medications and Allergies Home Medications Medication Instructions Recorded Confirmed Type No Known Home Medications 08/14/23 08/14/23 History Allergies Allergy/AdvReac Type Severity Reaction Status Date / Time No Known Allergies Allergy Verified 08/14/23 11:07 Physical Exam Vitals: Vital Signs Temp Pulse Pulse Resp BP BP Pulse Ox 08/15/23 14:00 68 19 138/69 95 08/15/23 13:00 66 15 165/89 95 08/15/23 12:00 56 L 19 150/75 94 L 08/15/23 11:00 66 14 141/81 93 L 08/15/23 10:00 64 15 162/91 91 L 08/15/23 09:00 51 L 17 150/95 97 08/15/23 08:00 51 L 6 L 134/65 96 08/15/23 07:00 55 L 14 155/91 93 L 08/15/23 06:00 68 14 125/66 92 L 08/15/23 05:00 63 15 122/71 94 L 08/15/23 04:00 97.4 F L 74 12 130/69 94 L 08/15/23 03:00 73 16 138/71 93 L 08/15/23 02:00 72 12 114/93 91 L 08/15/23 01:00 85 16 121/71 91 L 08/15/23 00:00 97.9 F 87 93 20 121/61 121/77 92 L 08/14/23 23:00 101 H 101 H 12 137/77 121/61 92 L 08/14/23 22:00 107 H 107 H 17 154/86 137/77 92 L 08/14/23 21:00 109 H 101 H 10 L 150/103 154/86 93 L 08/14/23 20:31 96 08/14/23 20:23 97.4 F L 22 146/95 92 L 08/14/23 20:18 84 92 L 08/14/23 20:00 164/99 08/14/23 19:54 98.6 F 98 22 170/110 91 L 08/14/23 19:44 101 H 15 91 L 08/14/23 18:00 148/99 Intake and Output 08/15/23 08/15/23 08/15/23 06:59 14:59 22:59 Intake Total 1100 560 70 Output Total 900 0 0 Balance 200 560 70 Intake: IV 560 560 70 Sodium Chloride 0.9% 1, 560 560 70 000 ml @ 75 mls/hr IV . [id number] [facility] Rx#:[id number] Oral 540 Output: Urine 900 0 0 Physical exam unable to be performed due to patient being off of the unit and in the OR for thrombectomy Results CBC & Chem 7: 08/15/23 04:50 08/15/23 04:50 Labs: Abnormal Lab Results - Last 24 Hours (Table) 08/14/23 08/14/23 08/14/23 Range/Units 17:43 19:45 20:50 WBC (3.8-10.6) k/uL Hgb (13.0-17.5) gm/dL Hct (39.0-53.0) % Neutrophils # (1.3-7.7) k/uL Lymphocytes # (1.0-4.8) k/uL APTT 31.6 H (22.0-30.0) sec Fibrinogen (200-500) mg/dL Carbon Dioxide (22-30) mmol/L Glucose (74-99) mg/dL POC Glucose (mg/dL) 148 H (70-110) mg/dL Troponin I 0.406 H* (0.000-0.034) ng/mL Albumin (3.5-5.0) g/dL 08/14/23 08/15/23 08/15/23 Range/Units 20:50 00:25 04:50 WBC 14.5 H (3.8-10.6) k/uL Hgb 12.3 L (13.0-17.5) gm/dL Hct 38.6 L (39.0-53.0) % Neutrophils # 8.6 H 12.7 H (1.3-7.7) k/uL Lymphocytes # 0.7 L (1.0-4.8) k/uL APTT (22.0-30.0) sec Fibrinogen 523 H (200-500) mg/dL Carbon Dioxide (22-30) mmol/L Glucose (74-99) mg/dL POC Glucose (mg/dL) (70-110) mg/dL Troponin I (0.000-0.034) ng/mL Albumin (3.5-5.0) g/dL 08/15/23 Range/Units 04:50 WBC (3.8-10.6) k/uL Hgb (13.0-17.5) gm/dL Hct (39.0-53.0) % Neutrophils # (1.3-7.7) k/uL Lymphocytes # (1.0-4.8) k/uL APTT (22.0-30.0) sec Fibrinogen (200-500) mg/dL Carbon Dioxide 20 L (22-30) mmol/L Glucose 155 H (74-99) mg/dL POC Glucose (mg/dL) (70-110) mg/dL Troponin I (0.000-0.034) ng/mL Albumin 3.3 L (3.5-5.0) g/dL Assessment and Plan (1) Pulmonary emboli Current Visit: Yes Status: Acute Code(s): I26.99 - OTHER PULMONARY EMBOLISM WITHOUT ACUTE COR PULMONALE SNOMED Code(s): 89754752 Plan: #Submassive pulmonary embolism -Mr. Arthur presented with 1 month of progressive dyspnea with concern of left lobar pneumonia prior to admission -Unclear if he received any treatment for the pneumonia -CT on admission noted bilateral pulmonary emboli with dilated right ventricle concerning for right heart strain -In addition to elevated troponins, echocardiogram revealed severely dilated right ventricle with pulmonary hypertension -Due to the right heart strain and acute hypoxic respiratory failure requiring 15 L of high flow nasal cannula, he underwent EKOS catheter directed tPA on 08/14/2023 followed by treatment with high intensity heparin drip -Subsequently, his hospital course has been complicated by concern for acute stroke with weakness in the right upper extremity -CT brain x 2 revealed no evidence of acute intracranial process with CT angiography revealing no acute evidence of dissection or aneurysm -Following consultation with neurology, he was taken to the OR for thrombectomy followed by placement of IVC filter due to concern for the risk of hemorrhagic conversion of an acute ischemic stroke -Because of the PE and concern for stroke, consultation to hematology was placed for hypercoagulable state -If he did have pneumonia preceding this, pulmonary embolism would be provoked, especially with a history of cigarette smoking and obesity -MTHFR is no longer considered risk factor for VTE and no longer is routinely tested in the setting -Given his young age, it is not unreasonable to perform hypercoagulable testing, but this would not change his management acutely inpatient -APLS testing with anticardiolipin and beta-2 glycoprotein antibodies in addition to lupus anticoagulant has been ordered as this would affect anti coagulation recommendations -Continue management of PE at this time per neurology, pulmonology, card iothoracic surgery -Cessation of smoking will be very important to help reduce his risk of recurrent VTE Eris Russell MD
[2023-08-15] MEDS ORDERED: HEPARIN SODIUM 1,000 UN/ML (10ML VL) IV PRN (18:47)
[2023-08-15 19:15] LABS: Basophils % (A) 0 %; Eosinophils # (A) 0.2 k/uL (0-0.7); Eosinophils % (A) 1 %; HCT 37.3 % (39.0-53.0); HGB 11.8 gm/dL (13.0-17.5); Hypochromasia Slight; Lymphocytes # (A) 1.4 k/uL (1.0-4.8); Lymphocytes % (A) 8 %; MCH 27.3 pg (25.0-35.0); MCHC 31.6 g/dL (31.0-37.0); MCV 86.4 fL (80.0-100.0); Mean Platelet Volume 11.2; Monocytes # (A) 0.9 k/uL (0-1.0); Monocytes % (A) 5 %; Neutrophils # (A) 14.6 k/uL (1.3-7.7); Neutrophils % (A) 85 %; Platelet Count 255 k/uL (150-450); RBC 4.31 m/uL (4.30-5.90); RDW 14.1 % (11.5-15.5); WBC 17.2 k/uL (3.8-10.6)
[2023-08-15] MEDS ORDERED: HEPARIN SOD,PORK IN 0.45% NACL 25,000 UNIT in 0.45% NACL 1 250ML.BAG IV SCH (19:15)
[2023-08-15 19:31] LABS: Partial Thromboplastin Time 24.6 sec (22.0-30.0); Prothrombin Time 11.4 sec (10.0-12.5)
--- NOTE | 2023-08-15 22:51 | MR ---
EXAMINATION TYPE: MR brain wo con DATE OF EXAM: 08/15/2023 10:32 PM CLINICAL INDICATION:Male, 43 years old with history of CVA; PHH, COMPARISON: 08/13/2023.. TECHNIQUE: Multi planar, multi sequence imaging was performed through the brain including: T1, T2, In version recovery, Diffusion weighted imaging, and gradient echo imaging. No gadolinium was given. FINDINGS: A couple foci of restricted diffusion/high DWI low ADC signal within the left frontal lobe cortex visualized on series 403 image 200 is measure up to 3 mm each. Patchy nonspecific white matter changes in the bilateral frontal lobes left greater than right. The field-white junctions, ventricula r system, basal cisterns appear unremarkable. Midline structures show no abnormality. The susceptibil ity weighted images do not reveal any evidence for micro-hemorrhage. The bone marrow signal is within normal limits. Paranasal sinuses and mastoid air cells: No significant paranasal sinus disease. Visualized orbits: Orbital contents are intact. IMPRESSION: 1. Acute/subacute CVA with at least 2 small foci of infarct in the posterior left frontal lobe measur ing up to 3 mm each. 2. Nonspecific white matter changes, left greater than right, not reina typical distribution of demyel ination. Possibly in the watershed region between the [place] and MCA territories. Findings communicated to Dr. Victoria Garcia on 08/15/2023 10:[address] Jay Olmos.
--- NOTE | 2023-08-15 23:23 | CONS ---
CONSULTATION HISTORY OF PRESENT ILLNESS: This is a 43-year-old gentleman who came to the emergency room with shortness of breath with diagnosis of pneumonia. The patient has COPD by history. Very limited information is available. The patient does not communicate very well, but the initial workup revealed a sub-massive pulmonary embolism. The patient was hemodynamically stable. He went on to have EKOS procedure with tPA infusion and ultrasound. Following the tPA infusion, he developed weakness in the right upper extremity, suggestive of possible acute stroke and neurology evaluation is in progress. CAT scan apparently did not reveal anything significant. Hemodynamically stable. Echo revealed good systolic function, enlargement of right-sided significant with pulmonary hypertension. The patient is already on appropriate medications. He is going for a thrombectomy by vascular surgery today. Cardiac-cotter, no new issues, he is maintaining sinus rhythm. His EKG on arrival yesterday revealed sinus rhythm with sinus tachycardia, nonspecific ST-T wave changes. He does not take any regular medications. PHYSICAL EXAMINATION: VITAL SIGNS: Blood pressure is 150/70, pulse rate 56 per minute sinus irregular. HEENT: Unremarkable. HEART: Reveals S1, S2 heard normally. LUNGS: Bilateral decent air entry. ABDOMEN: Soft. EXTREMITIES: Lower extremity pulses are palpable. NEUROLOGIC: Central nervous system assessment was not performed in detail, but the patient is unable to move right upper extremity. IMPRESSION: 1. Acute CVA following tPA administration through EKOS catheter for acute pulmonary embolism. 2. Acute pulmonary embolism. 3. History of tobacco abuse. RECOMMENDATIONS: From a cardiac standpoint, I have no new the specific suggestions at this time. I am suggesting if the blood pressure goes up, to add losartan 50 mg daily and also Lipitor 40 mg is to be added today. I will continue to see the patient as needed during the hospitalization. The patient's elevated troponin does not suggest myocardial injury. MMODL / IJN: [id number] /
[2023-08-16 01:39] LABS: Basophils # (A) 0.1 k/uL (0-0.2); Basophils % (A) 0 %; Eosinophils # (A) 0.2 k/uL (0-0.7); Eosinophils % (A) 1 %; HCT 36.5 % (39.0-53.0); HGB 11.8 gm/dL (13.0-17.5); Hypochromasia Slight; Lymphocytes # (A) 1.3 k/uL (1.0-4.8); Lymphocytes % (A) 9 %; MCH 28.1 pg (25.0-35.0); MCHC 32.5 g/dL (31.0-37.0); MCV 86.5 fL (80.0-100.0); Mean Platelet Volume 9.9; Monocytes # (A) 0.8 k/uL (0-1.0); Monocytes % (A) 6 %; Neutrophils # (A) 11.4 k/uL (1.3-7.7); Neutrophils % (A) 83 %; Platelet Count 235 k/uL (150-450); RBC 4.22 m/uL (4.30-5.90); RDW 14.1 % (11.5-15.5); WBC 13.8 k/uL (3.8-10.6)
[2023-08-16 02:04] LABS: INR 1.1 (<1.2); Partial Thromboplastin Time 24.9 sec (22.0-30.0); Prothrombin Time 11.5 sec (10.0-12.5)
[2023-08-16] MEDS: ATORVASTATIN 40 MG TAB PO SCH ×2 (03:33→20:29)
[2023-08-16 03:40] LABS: Cardiolipin Ab IgG Interp Negative (Negative); Cardiolipin Ab IgM Interp Negative (Negative); Cardiolipin IgA Antibody 10.4 U/mL; Cardiolipin IgM Antibody <1.5 U/mL
[2023-08-16 04:34] LABS: Basophils % (A) 0 %; Eosinophils # (A) 0.2 k/uL (0-0.7); Eosinophils % (A) 1 %; HGB 11.6 gm/dL (13.0-17.5); Hypochromasia Slight; Lymphocytes # (A) 1.5 k/uL (1.0-4.8); Lymphocytes % (A) 12 %; MCH 27.7 pg (25.0-35.0); MCHC 32.1 g/dL (31.0-37.0); MCV 86.3 fL (80.0-100.0); Mean Platelet Volume 10.4; Monocytes # (A) 0.6 k/uL (0-1.0); Monocytes % (A) 5 %; Neutrophils # (A) 10.4 k/uL (1.3-7.7); Neutrophils % (A) 81 %; Platelet Count 237 k/uL (150-450); RBC 4.17 m/uL (4.30-5.90); RDW 14.2 % (11.5-15.5); WBC 12.8 k/uL (3.8-10.6)
[2023-08-16 05:21] LABS: ALT 19 U/L (4-49); AST 32 U/L (17-59); African American GFR (CKD) >90 (>60 ml/min/1.73 sqM); Albumin 3.1 g/dL (3.5-5.0); Alkaline Phosphatase 93 U/L (38-126); Anion Gap 7 mmol/L; Blood Urea Nitrogen 14 mg/dL (9-20); Calcium 8.5 mg/dL (8.4-10.2); Carbon Dioxide 24 mmol/L (22-30); Chloride 104 mmol/L (98-107); Glucose 120 mg/dL (74-99); Non-African American GFR(CKD) >90 (>60 ml/min/1.73 sqM); Potassium 4.5 mmol/L (3.5-5.1); Sodium 135 mmol/L (137-145); Total Bilirubin 0.5 mg/dL (0.2-1.3); Total Protein 6.2 g/dL (6.3-8.2)
[2023-08-16] MEDS: ALBUTEROL NEBULIZED 2.5 MG/3 ML INHALATION SCH ×4 (07:39→19:49)
[2023-08-16] MEDS ORDERED: HEPARIN SODIUM 1,000 UN/ML (10ML VL) IV ONE (09:20)
--- NOTE | 2023-08-16 09:47 | P.PN ---
Subjective Progress Note Date: 08/16/23 Principal diagnosis: 1: Submassive on MiraLAX, status post pulmonary thrombectomy. 2: Left popliteal deep venous thrombosis. 3: Suspected PFO. 4: Tobacco use. Patient breathing much improved. Vital signs are stable. Patient is able to lay flat without dyspnea. Objective - Vital Signs Vital signs: Vital Signs Temp 98 F 08/16/23 03:00 Pulse 58 L 08/16/23 08:00 Resp 18 08/16/23 08:00 BP 141/86 08/16/23 08:00 Pulse Ox 98 08/16/23 08:00 FiO2 Intake & Output 08/15/23 08/16/23 08/16/23 18:59 06:59 18:59 Intake Total 730 631 50 Output Total 0 300 400 Balance 730 331 -350 Weight 161.7 kg Intake: IV 730 400 Sodium Chloride 0.9% 1, 630 400 000 ml @ 75 mls/hr IV . [id number] [facility] Rx#:[id number] Intake, IV Titration 231 50 Amount Heparin Sod,Pork in 0.45% 81 NaCl 25,000 unit In 0.45 % NaCl 1 250ml.bag @ 6. 299 UNITS/KG/HR 10 mls/hr IV .Q24H [facility] Rx#: [id number] Sodium Chloride 0.9% 1, 150 50 000 ml @ 50 mls/hr IV . Q20H [facility] Rx#:[id number] Output: Urine 0 300 400 Other: # Voids 1 1 1 - Labs CBC & Chem 7: 08/16/23 04:01 08/16/23 04:01 Labs: Abnormal Lab Results - Last 24 Hours (Table) 08/15/23 08/16/23 08/16/23 Range/Units 18:57 01:24 04:01 WBC 17.2 H 13.8 H 12.8 H (3.8-10.6) k/uL RBC 4.22 L 4.17 L (4.30-5.90) m/uL Hgb 11.8 L 11.8 L 11.6 L (13.0-17.5) gm/dL Hct 37.3 L 36.5 L 36.0 L (39.0-53.0) % Neutrophils # 14.6 H 11.4 H 10.4 H (1.3-7.7) k/uL Sodium (137-145) mmol/L Glucose (74-99) mg/dL Total Protein (6.3-8.2) g/dL Albumin (3.5-5.0) g/dL 08/16/23 Range/Units 04:01 WBC (3.8-10.6) k/uL RBC (4.30-5.90) m/uL Hgb (13.0-17.5) gm/dL Hct (39.0-53.0) % Neutrophils # (1.3-7.7) k/uL Sodium 135 L (137-145) mmol/L Glucose 120 H (74-99) mg/dL Total Protein 6.2 L (6.3-8.2) g/dL Albumin 3.1 L (3.5-5.0) g/dL Microbiology - Last 24 Hours (Table) 08/14/23 09:55 Blood Culture - Preliminary Blood 08/14/23 09:45 Blood Culture - Preliminary Blood Assessment and Plan Plan: 1: I did speak with neurology. The patient is cleared for full dose antic oagulation and thus there is no need for IVC filter placement. Additionally I did speak with cardiology in this regard 2: Will begin to ambulate patient. 3: Smoking cessation. 4: Dietary counseling via dietitian. 5: Surgically stable for discharge once fully anticoagulated. Time with Patient: Greater than 30
[2023-08-16] MEDS: NICOTINE 21MG/24HR PATCH TRANSDERM SCH (10:21)
[2023-08-16] MEDS: SODIUM CHLORIDE 0.9% 1,000 ML IV SCH (10:22)
[2023-08-16] MEDS: HEPARIN SOD,PORK IN 0.45% NACL 25,000 UNIT in 0.45% NACL 1 250ML.BAG IV SCH ×2 (10:23→22:34)
[2023-08-16 10:27] LABS: Basophils % (A) 0 %; Eosinophils # (A) 0.3 k/uL (0-0.7); Eosinophils % (A) 3 %; HCT 37.9 % (39.0-53.0); HGB 11.7 gm/dL (13.0-17.5); Hypochromasia Moderate; Lymphocytes # (A) 1.8 k/uL (1.0-4.8); Lymphocytes % (A) 16 %; MCH 26.9 pg (25.0-35.0); MCHC 30.7 g/dL (31.0-37.0); MCV 87.5 fL (80.0-100.0); Mean Platelet Volume 10.9; Monocytes # (A) 0.7 k/uL (0-1.0); Monocytes % (A) 6 %; Neutrophils # (A) 8.8 k/uL (1.3-7.7); Neutrophils % (A) 75 %; Platelet Count 227 k/uL (150-450); RBC 4.33 m/uL (4.30-5.90); RDW 14.1 % (11.5-15.5); WBC 11.7 k/uL (3.8-10.6)
[2023-08-16 10:36] LABS: Partial Thromboplastin Time 23.5 sec (22.0-30.0); Prothrombin Time 11.2 sec (10.0-12.5)
--- NOTE | 2023-08-16 10:45 | P.PN ---
Subjective Progress Note Date: 08/16/23 Principal diagnosis: Pulmonary embolism. Pulmonary consult dated 08/14/2023. 43-year-old male who was seen in the emergency department, room 7. The patient came into the hospital, complaining of shortness of breath. He's been having shortness of breath now for some time, seemingly started about 1 month ago, when he was in the emergency room here, for an episode of shortness of breath, and was discovered to have left lower lobe pneumonia. The patient was not admitted to the hospital that time. He does not have a family doctor. The patient presents today, August 14, shortness of breath. The patient apparently had low saturations according to EMS, had difficulty breathing. The patient is currently on 6 L of oxygen. Is getting saline at KVO, and a heparin drip. When he was here, for pneumonia 1 month ago, he was discharged with Augmentin and a Z-Amilcar. The patient has been smoking for at least 30+ years. He does continue to smoke. He works as a diesel mechanic construction, and only takes Mucinex [id number] at home. Again he does not have a family doctor. White count 14.5, hemoglobin 13, hematocrit 40.7, platelet count normal. D-dimer was 7.81. Sodium 142, potassium 4.5, chlorides 105, CO2 24, BUN 12, and creatinine 0.82. Lactic acid was 3. Troponins were 0.289 and 0.431. N-terminal proBNP was 919, and repeat was 1450. Chest x-ray suggested infiltrate or consolidation in the left lower lobe, and/or effusion. CT angiogram shows bilateral pulmonary emboli, involving segmental branches of the left upper lobe pulmonary artery left lower lobe pulmonary artery, and segmental branches of the right lower lobe pulmonary artery and right upper lobe pulmonary artery. There is dilatation of the right heart, suggesting right heart strain. Venous Doppler studies are pending. Progress note dated 08/15/2023. 43-year-old male seen yesterday in consultation. Please see the note above. The patient was admitted to the hospital with a diagnosis of increasing shortness of breath. The patient was found to have bilateral pulmonary emboli, and right heart strain, and CT angiogram. The vascular surgeon to the patient to the catheterization laboratory yesterday, for EKOS. The patient was discovered to have a left lower extremity DVT. In addition to all of this, the patient had a code stroke called last night. He brain CT was negative, and CT angiogram was also negative. The patient is going to have a repeat brain CT today. The patient was on IV heparin. He was receiving oxygen by high flow nasal cannula at 15 L. Labs include a white count of 14.5, hemoglobin 12.3, hematocrit 38.6, and a normal platelet count. Sodium 138, potassium 4.8, chlorides 106, CO2 20, BUN 10, creatinine 0.73. Albumin is 3.3. Today's repeat brain CT, showed nothing acute. Chest x-ray showed some mild pulmonary vascular congestion, and a left-sided pleural effusion. Progress note dated 08/16/2023. This is a 43-year-old male, who was seen initially in the emergency department, for shortness of breath. The patient was found have bilateral pulmonary emboli, with right heart strain, and went for EKOS, with vascular surgery. In addition, the patient appears to develop a stroke, involving the left frontal lobe, with right-sided weakness, and slurred speech. The patient's currently on saline at 50 mL an hour. He is receiving IV heparin, and is currently on 5 L nasal cannula. White count 11.7, hemoglobin 11.7, hematocrit 37.9, and platelet count was normal. Sodium 135, potassium 4.5, chlorides 104, CO2 24, BUN 14, and creatinine is 0.69. Albumin is 3.1. Brain MRI shows an acute/subacute CVA with at least 2 small foci of infarct in the posterior left frontal lobe measuring 3 mm each. Objective - Vital Signs Vital signs: Vital Signs Temp 98 F 08/16/23 03:00 Pulse 58 L 08/16/23 08:00 Resp 18 08/16/23 08:00 BP 141/86 08/16/23 08:00 Pulse Ox 98 08/16/23 08:00 FiO2 Intake & Output 08/15/23 08/16/23 08/16/23 18:59 06:59 18:59 Intake Total 730 631 50 Output Total 0 300 400 Balance 730 331 -350 Weight 161.7 kg Intake: IV 730 400 Sodium Chloride 0.9% 1, 630 400 000 ml @ 75 mls/hr IV . [id number] [facility] Rx#:[id number] Intake, IV Titration 231 50 Amount Heparin Sod,Pork in 0.45% 81 NaCl 25,000 unit In 0.45 % NaCl 1 250ml.bag @ 6. 299 UNITS/KG/HR 10 mls/hr IV .Q24H [facility] Rx#: [id number] Sodium Chloride 0.9% 1, 150 50 000 ml @ 50 mls/hr IV . Q20H [facility] Rx#:[id number] Output: Urine 0 300 400 Other: # Voids 1 1 1 - Exam Mild respiratory distress, oriented 3, no conversational dyspnea or use of accessory muscles. HEENT examination is grossly unremarkable. Neck supple. Full range of motion. No adenopathy thyromegaly or neck vein dis tention. Cardiovascular examination reveals regular rhythm rate. S1-S2 normal. No S3 or S4. No discernible murmur noted. Heart sounds are distant. Heart rate 58 bpm. Lungs reveal clear breath sounds. Breath sounds are equal bilaterally. No adventitious lung sounds including wheezes rhonchi or crackles. Saturation is 98% on 5 L nasal cannula. Abdomen soft bowel sounds are heard. No masses or tenderness. Extremities are intact. No cyanosis clubbing or edema. Skin is without rash or lesion. Neurologic examination is brief but nonfocal. - Labs CBC & Chem 7: 08/16/23 09:55 08/16/23 04:01 Labs: Abnormal Lab Results - Last 24 Hours (Table) 08/15/23 08/16/23 08/16/23 Range/Units 18:57 01:24 04:01 WBC 17.2 H 13.8 H 12.8 H (3.8-10.6) k/uL RBC 4.22 L 4.17 L (4.30-5.90) m/uL Hgb 11.8 L 11.8 L 11.6 L (13.0-17.5) gm/dL Hct 37.3 L 36.5 L 36.0 L (39.0-53.0) % MCHC (31.0-37.0) g/dL Neutrophils # 14.6 H 11.4 H 10.4 H (1.3-7.7) k/uL Sodium (137-145) mmol/L Glucose (74-99) mg/dL Total Protein (6.3-8.2) g/dL Albumin (3.5-5.0) g/dL 08/16/23 08/16/23 Range/Units 04:01 09:55 WBC 11.7 H (3.8-10.6) k/uL RBC (4.30-5.90) m/uL Hgb 11.7 L (13.0-17.5) gm/dL Hct 37.9 L (39.0-53.0) % MCHC 30.7 L (31.0-37.0) g/dL Neutrophils # 8.8 H (1.3-7.7) k/uL Sodium 135 L (137-145) mmol/L Glucose 120 H (74-99) mg/dL Total Protein 6.2 L (6.3-8.2) g/dL Albumin 3.1 L (3.5-5.0) g/dL Microbiology - Last 24 Hours (Table) 08/14/23 09:55 Blood Culture - Preliminary Blood 08/14/23 09:45 Blood Culture - Preliminary Blood Assessment and Plan Assessment: Acute hypoxemic respiratory failure, secondary to bilateral pulmonary embolism, with possible right heart strain, based on the CTA. Left frontal lobe CVA, ischemic, with right-sided findings. Probable PFO. S/P EKOS, 08/14/2023. Left lower extremity DVT. Recent episode of pneumonia, one month ago, involving the left lower lobe, treated with antibiotics. History of chronic tobacco use and nicotine dependence. Rule out COPD. Obesity. Plan: Plan dated 08/14/2023. The patient was started on IV heparin. The patient should have a stat echocardiogram. The patient is getting Dopplers of the lower extremities. The patient's currently on 6 L and IV heparin. Vascular or cardiovascular service should be asked to see this patient, to determine whether or not he would be a candidate for EKOS or suction thrombectomy. Additional recommendations and suggestions are forthcoming. His hemodynamic status is currently stable with a blood pressure 128/85. They may choose to treat him conservatively with IV hep jitendra, and eventually a factor X a inhibitor. Doppler of the lower extremities reveal a DVT on the left. Plan dated 08/15/2023. The patient is seen in the intensive care unit, room 257. The patient had a repeat brain CT this morning, which again showed nothing acute. The patient continues on IV heparin. The patient's on high flow nasal cannula. The patient did undergo EKOS yesterday, bilateral of the surgeons. We will continue to follow make recommendations where appropriate. Doppler of the left lower extremity was positive for DVT. Prognosis is guarded. Labs, x-rays, and medications are reviewed. Plan dated 08/16/2023. Neurology the patient is a good candidate for anticoagulation with heparin. They don't feel strongly that the patient will have hemorrhagic transformation. For that reason in my opinion, an IVC filter is not recommended. Labs, x-rays, and medications are reviewed. The patient is currently on 5 L of oxygen. He is receiving IV heparin, and saline at 50 mL an hour. We will continue to follow the patient, and make recommendations along the way. Prognosis is guarded. The patient is critically ill at this point. Time with Patient: Greater than 30
[2023-08-16] MEDS: HEPARIN SODIUM 1,000 UN/ML (10ML VL) IV PRN ×2 (10:58→17:40)
--- NOTE | 2023-08-16 10:59 | P.GSCN ---
History of Present Illness Consult date: 08/14/23 Reason for Consult: Submassive pulmonary embolism with evidence of right heart strain. History of present illness: Patient is a 43-year-old male who presented with acute onset of shortness of breath. Upon questioning the patient admits to 3 year 4 weeks of shortness of breath however the dyspnea became more pronounced and patient presented for further evaluation. Patient denies any previous similar symptoms. There is no history of known thrombophilia in the patient or family members. Workup including CTA of the chest and venous duplex of lower lower extremities demonstrates submassive bilateral pulmonary emboli as well as left popliteal venous thrombosis. Patient does have a history of tobacco use. Past Medical History Past Medical History: No Reported History History of Any Multi-Drug Resistant Organisms: None Reported Past Surgical History: Ear Surgery Additional Past Surgical History / Comment(s): cholecystectomy Past Psychological History: No Psychological Hx Reported Smoking Status: Current every day smoker Past Alcohol Use History: Rare Past Drug Use History: Marijuana Medications and Allergies Home Medications Medication Instructions Recorded Confirmed Type No Known Home Medications 08/14/23 08/14/23 History Allergies Allergy/AdvReac Type Severity Reaction Status Date / Time No Known Allergies Allergy Verified 08/14/23 11:07 Surgical - Exam Osteopathic Statement: *. No significant issues noted on an osteopathic structural exam other than those noted in the History and Physical/Consult. Vital Signs Temp Pulse Resp BP Pulse Ox 98.4 F 115 H 22 171/80 84 L 08/14/23 09:10 08/14/23 09:10 08/14/23 09:10 08/14/23 09:10 08/14/23 09:10 Patient is awake and alert although dyskinetic. He is having difficulty laying flat due to dyspeptic symptoms. Patient has heart rate of 115. He is hypertensive. He requires significant oxygen supplementation. No significant leg edema is noted. Patient has normal arterial pulsation in the lower extremities bilaterally. Results - Labs 08/16/23 09:55 08/16/23 04:01 Abnormal Lab Results - Last 24 Hours (Table) 08/15/23 08/16/23 08/16/23 Range/Units 18:57 01:24 04:01 WBC 17.2 H 13.8 H 12.8 H (3.8-10.6) k/uL RBC 4.22 L 4.17 L (4.30-5.90) m/uL Hgb 11.8 L 11.8 L 11.6 L (13.0-17.5) gm/dL Hct 37.3 L 36.5 L 36.0 L (39.0-53.0) % MCHC (31.0-37.0) g/dL Neutrophils # 14.6 H 11.4 H 10.4 H (1.3-7.7) k/uL Sodium (137-145) mmol/L Glucose (74-99) mg/dL Total Protein (6.3-8.2) g/dL Albumin (3.5-5.0) g/dL 08/16/23 08/16/23 Range/Units 04:01 09:55 WBC 11.7 H (3.8-10.6) k/uL RBC (4.30-5.90) m/uL Hgb 11.7 L (13.0-17.5) gm/dL Hct 37.9 L (39.0-53.0) % MCHC 30.7 L (31.0-37.0) g/dL Neutrophils # 8.8 H (1.3-7.7) k/uL Sodium 135 L (137-145) mmol/L Glucose 120 H (74-99) mg/dL Total Protein 6.2 L (6.3-8.2) g/dL Albumin 3.1 L (3.5-5.0) g/dL Microbiology - Last 24 Hours (Table) 08/14/23 09:55 Blood Culture - Preliminary Blood 08/14/23 09:45 Blood Culture - Preliminary Blood Diabetes panel 08/16/23 08/16/23 Range/Units 04:01 04:01 Sodium 135 L (137-145) mmol/L Potassium 4.5 (3.5-5.1) mmol/L Chloride 104 (98-107) mmol/L Carbon Dioxide 24 (22-30) mmol/L BUN 14 (9-20) mg/dL Creatinine 0.69 (0.66-1.25) mg/dL Glucose 120 H (74-99) mg/dL Hemoglobin A1c 5.8 (<=6.0) % Calcium 8.5 (8.4-10.2) mg/dL AST 32 (17-59) U/L ALT 19 (4-49) U/L Alkaline Phosphatase 93 (38-126) U/L Total Protein 6.2 L (6.3-8.2) g/dL Albumin 3.1 L (3.5-5.0) g/dL Calcium panel 08/16/23 Range/Units 04:01 Calcium 8.5 (8.4-10.2) mg/dL Albumin 3.1 L (3.5-5.0) g/dL Pituitary panel 08/16/23 Range/Units 04:01 Sodium 135 L (137-145) mmol/L Potassium 4.5 (3.5-5.1) mmol/L Chloride 104 (98-107) mmol/L Carbon Dioxide 24 (22-30) mmol/L BUN 14 (9-20) mg/dL Creatinine 0.69 (0.66-1.25) mg/dL Glucose 120 H (74-99) mg/dL Calcium 8.5 (8.4-10.2) mg/dL Adrenal panel 08/16/23 Range/Units 04:01 Sodium 135 L (137-145) mmol/L Potassium 4.5 (3.5-5.1) mmol/L Chloride 104 (98-107) mmol/L Carbon Dioxide 24 (22-30) mmol/L BUN 14 (9-20) mg/dL Creatinine 0.69 (0.66-1.25) mg/dL Glucose 120 H (74-99) mg/dL Calcium 8.5 (8.4-10.2) mg/dL Total Bilirubin 0.5 (0.2-1.3) mg/dL AST 32 (17-59) U/L ALT 19 (4-49) U/L Alkaline Phosphatase 93 (38-126) U/L Total Protein 6.2 L (6.3-8.2) g/dL Albumin 3.1 L (3.5-5.0) g/dL - Imaging Additional studies: CTA and venous duplex imaging were reviewed Assessment and Plan Assessment: 1: Submassive bilateral pulmonary emboli with evidence of right heart strain and respiratory distress. 2: Left popliteal deep venous thrombosis. 3: Tobacco abuse. Plan: 2 the patient's respiratory compromise at believe he be good patient for pulmonary TPA thrombolytic lysis. The procedure, risk and benefits were discussed with the patient. Patient wished to proceed. Time with Patient: Greater than 30
--- NOTE | 2023-08-16 11:05 | CT ---
EXAMINATION TYPE: CT brain wo con CT DLP: 1095.4 mGycm, Automated exposure control for dose reduction was used. DATE OF EXAM: 08/16/2023 10:39 AM COMPARISON: MRI 08/15/2023.. CLINICAL INDICATION:Male, 43 years old with history of Left CVA, stroke TECHNIQUE: Brain: Axial CT images of the brain were obtained with coronal and sagittal reformats created and rev iewed. Contrast used: None. Oral contrast used: None. FINDINGS: Brain: Extra-axial spaces: No abnormal extra-axial fluid collections. Ventricular system: Within normal limits Cerebral parenchyma: Known microinfarcts and MRI are not well appreciated on CT. No acute intraparenc hymal hemorrhage or mass effect. The field-white junction is well differentiated. Cerebellum: Unremarkable. Mass effect: No evidence of midline shift. Intracranial vasculature: unremarkable Soft tissues: Normal. Calvarium/osseous structures: No depressed skull fracture. Paranasal sinuses and mastoid air cells: Mild scattered paranasal sinus disease. Visualized orbits: Orbital contents are intact. IMPRESSION: Microinfarcts seen on MRI are not well appreciated on CT. No hemorrhagic conversion.
--- NOTE | 2023-08-16 11:18 | P.PN ---
Subjective Progress Note Date: 08/16/23 Hospital Course: 43-year-old male with history of morbid obesity presenting with sudden onset s hortness of breath. In the ED, temperature was 98.2, pulse 96, blood pressure 128/85, saturating at 92% on 6 L, currently at 97% on 15 L nonrebreather. White count 14.5, d-dimer 7.81, lactic acid 3, troponin 0.289 up to 0.431, proBNP 1400, potassium 4.5. CT each ear chest shows bilateral pulmonary emboli with right heart strain, moderate to large left pleural effusion. Chest x-ray independently interpreted, shows left pleural effusion. EKG independently interpreted shows evidence of S1 Q3 T3, and sinus tachycardia. Patient being admitted for submassive PE. Patient underwent EKOS. When he returned to ICU, patient had strokelike symptoms. Code stroke was called. CT head and CTA did not show any acute process or large vessel occlusion. Unable to do TPA as patient was getting thrombolysis. Repeat CT head also did not show any acute process. Neurology following. Heme also consulted. Echocardiogram showed severely dilated right ventricle with severe pulmonary hypertension global hypokinesis. Venous Doppler showed positive DVT in the left leg. There is a possibility of PFO. Brain MRI discharge acute/subacute CVA with at least 2 small foci of infarct in the posterior left frontal lobe. He is now anticoagulated. No indications for IVC filter at this point. Cardiology also f ollowing with regards to possible PFO, no interventions planned at the moment. Vascular surgery considering thrombectomy. Patient remains in the ICU. Subjective: Patient seen and examined at bedside. Continues to have shortness of breath, but improving. Has not been ambulating. Pertinent positives and negatives as discussed above, a complete review of systems was performed and all other systems are negative. Vitals Signs Reviewed. General: nontoxic, no distress, appears at stated age, morbidly obese Derm: warm, dry Head: atraumatic, normocephalic, symmetric Eyes: EOMI, no lid lag, anicteric sclera Mouth: no lip lesion, mucus membranes moist Cardiovascular: S1S2 reg, no murmur Lungs: CTA bilateral, no rhonchi, no rales , no accessory muscle use, supplemental oxygen Abdominal: soft, nontender to palpation, no guarding, no appreciable organomegaly Ext: no gross muscle atrophy, no edema, no contractures Neuro: CN II-XI grossly intact, right arm weakness Psych: Alert, oriented, appropriate affect Data Reviewed Today: Pertinent Labs: WBC 11.7, hemoglobin 11.7, platelet 227, sodium 135, creatinine 0.6, A1c 5.8 Imaging: Repeat CT at this morning did not show any hemorrhagic conversion. Assessment and Plan: Patient is critically ill, prognosis guarded. Acute Submassive bilateral pulmonary embolism Acute left leg DVT acute hypoxic respiratory failure Leukocytosis, likely reactive, improving Lactic acidosis, resolved NSTEMI, type 2 Acute left pleural effusion Acute CVA -Discussed with neurology, appropriate heparinize patient, currently on heparin drip, monitor for any worsening neurological status -Vascular sx note reviewed, possible thrombectomy -continue to wean O2 -ICU note reviewed, continue supportive care -Cardiology following, needs further evaluation of PFO, but regardless likely no interventions at the moment -hematology following for hypercoag work up -on atorvastatin 40 per cardiology Morbid obesity -outpt structured weight loss program DVT ppx: heparin gtt Code status: Full code Anticipated discharge place: Pending clinical course Anticipated discharge time: Pending clinical course Objective - Vital Signs Vital signs: Vital Signs Temp 98 F 08/16/23 03:00 Pulse 73 08/16/23 11:00 Resp 21 08/16/23 11:00 BP 146/81 08/16/23 11:00 Pulse Ox 95 08/16/23 11:00 FiO2 Intake & Output 08/15/23 08/16/23 08/16/23 18:59 06:59 18:59 Intake Total 730 631 256.516 Output Total 0 300 800 Balance 730 331 -543.484 Weight 161.7 kg Intake: IV 730 400 200 Sodium Chloride 0.9% 1, 200 000 ml @ 50 mls/hr IV . Q20H [facility] Rx#:[id number] Sodium Chloride 0.9% 1, 630 400 000 ml @ 75 mls/hr IV . [id number] [facility] Rx#:[id number] Intake, IV Titration 231 56.516 Amount Heparin Sod,Pork in 0.45% 81 NaCl 25,000 unit In 0.45 % NaCl 1 250ml.bag @ 6. 299 UNITS/KG/HR 10 mls/hr IV .Q24H [facility] Rx#: [id number] Heparin Sod,Pork in 0.45% 6.516 NaCl 25,000 unit In 0.45 % NaCl 1 250ml.bag @ 9. 299 UNITS/KG/HR 15.036 mls/hr IV .[id number] [facility] Rx #:[id number] Sodium Chloride 0.9% 1, 150 50 000 ml @ 50 mls/hr IV . Q20H [facility] Rx#:[id number] Output: Urine 0 300 800 Other: # Voids 1 1 1 # Bowel Movements 0 - Labs CBC & Chem 7: 08/16/23 09:55 08/16/23 04:01 Labs: Abnormal Lab Results - Last 24 Hours (Table) 08/15/23 08/16/23 08/16/23 Range/Units 18:57 01:24 04:01 WBC 17.2 H 13.8 H 12.8 H (3.8-10.6) k/uL RBC 4.22 L 4.17 L (4.30-5.90) m/uL Hgb 11.8 L 11.8 L 11.6 L (13.0-17.5) gm/dL Hct 37.3 L 36.5 L 36.0 L (39.0-53.0) % MCHC (31.0-37.0) g/dL Neutrophils # 14.6 H 11.4 H 10.4 H (1.3-7.7) k/uL Sodium (137-145) mmol/L Glucose (74-99) mg/dL Total Protein (6.3-8.2) g/dL Albumin (3.5-5.0) g/dL 08/16/23 08/16/23 Range/Units 04:01 09:55 WBC 11.7 H (3.8-10.6) k/uL RBC (4.30-5.90) m/uL Hgb 11.7 L (13.0-17.5) gm/dL Hct 37.9 L (39.0-53.0) % MCHC 30.7 L (31.0-37.0) g/dL Neutrophils # 8.8 H (1.3-7.7) k/uL Sodium 135 L (137-145) mmol/L Glucose 120 H (74-99) mg/dL Total Protein 6.2 L (6.3-8.2) g/dL Albumin 3.1 L (3.5-5.0) g/dL Microbiology - Last 24 Hours (Table) 08/14/23 09:55 Blood Culture - Preliminary Blood 08/14/23 09:45 Blood Culture - Preliminary Blood
[2023-08-16 14:00] LABS: Chol/HDL Ratio 3.21 Ratio; LDL Cholesterol,Calculated 64.2 mg/dL (0.0-131.0); VLDL Calculation 18.42 mg/dL (5.00-40.00)
--- NOTE | 2023-08-16 14:44 | P.PN ---
Subjective Progress Note Date: 08/16/23 -Underwent thrombectomy of pulmonary emboli -MRI brain noted acute/subacute CVA with 2 foci in the posterior left frontal lobe measuring about 3 mm each -Following discussion with neurology, IVC filter was not placed in was maintained on heparin drip -No acute events overnight next -Breathing is significantly improved compared to admission -Increased movement in the right arm is noted today compared to yesterday Objective - Vital Signs Vital signs: Vital Signs Temp 98 F 08/16/23 03:00 Pulse 72 08/16/23 12:00 Resp 22 08/16/23 12:00 BP 137/81 08/16/23 12:00 Pulse Ox 94 L 08/16/23 12:00 FiO2 Intake & Output 08/15/23 08/16/23 08/16/23 18:59 06:59 18:59 Intake Total 730 631 306.516 Output Total 0 300 800 Balance 730 331 -493.484 Weight 161.7 kg Intake: IV 730 400 250 Sodium Chloride 0.9% 1, 250 000 ml @ 50 mls/hr IV . Q20H [facility] Rx#:[id number] Sodium Chloride 0.9% 1, 630 400 000 ml @ 75 mls/hr IV . [id number] [facility] Rx#:[id number] Intake, IV Titration 231 56.516 Amount Heparin Sod,Pork in 0.45% 81 NaCl 25,000 unit In 0.45 % NaCl 1 250ml.bag @ 6. 299 UNITS/KG/HR 10 mls/hr IV .Q24H [facility] Rx#: [id number] Heparin Sod,Pork in 0.45% 6.516 NaCl 25,000 unit In 0.45 % NaCl 1 250ml.bag @ 9. 299 UNITS/KG/HR 15.036 mls/hr IV .[id number] [facility] Rx #:[id number] Sodium Chloride 0.9% 1, 150 50 000 ml @ 50 mls/hr IV . Q20H [facility] Rx#:[id number] Output: Urine 0 300 800 Other: Voiding Method Urinal # Voids 1 1 1 # Bowel Movements 0 - Constitutional General appearance: Present: cooperative, morbidly obese, no acute distress - EENT Eyes: Present: EOMI - Respiratory Respiratory: bilateral: diminished - Cardiovascular Rhythm: regular - Gastrointestinal General gastrointestinal: Present: soft. Absent: distended, tenderness - Neurologic Neurologic: Present: CNII-XII intact. Absent: focal deficits - Labs CBC & Chem 7: 08/16/23 09:55 08/16/23 04:01 Labs: Abnormal Lab Results - Last 24 Hours (Table) 08/15/23 08/16/23 08/16/23 Range/Units 18:57 01:24 04:01 WBC 17.2 H 13.8 H 12.8 H (3.8-10.6) k/uL RBC 4.22 L 4.17 L (4.30-5.90) m/uL Hgb 11.8 L 11.8 L 11.6 L (13.0-17.5) gm/dL Hct 37.3 L 36.5 L 36.0 L (39.0-53.0) % MCHC (31.0-37.0) g/dL Neutrophils # 14.6 H 11.4 H 10.4 H (1.3-7.7) k/uL Sodium (137-145) mmol/L Glucose (74-99) mg/dL Total Protein (6.3-8.2) g/dL Albumin (3.5-5.0) g/dL HDL Cholesterol (40.00-60.00) mg/dL 08/16/23 08/16/23 Range/Units 04:01 09:55 WBC 11.7 H (3.8-10.6) k/uL RBC (4.30-5.90) m/uL Hgb 11.7 L (13.0-17.5) gm/dL Hct 37.9 L (39.0-53.0) % MCHC 30.7 L (31.0-37.0) g/dL Neutrophils # 8.8 H (1.3-7.7) k/uL Sodium 135 L (137-145) mmol/L Glucose 120 H (74-99) mg/dL Total Protein 6.2 L (6.3-8.2) g/dL Albumin 3.1 L (3.5-5.0) g/dL HDL Cholesterol 37.40 L (40.00-60.00) mg/dL Microbiology - Last 24 Hours (Table) 08/14/23 09:55 Blood Culture - Preliminary Blood 08/14/23 09:45 Blood Culture - Preliminary Blood Assessment and Plan (1) Pulmonary emboli Current Visit: Yes Status: Acute Code(s): I26.99 - OTHER PULMONARY EMBOLISM WITHOUT ACUTE COR PULMONALE SNOMED Code(s): 66334827 Plan: #Submassive pulmonary embolism -Mr. Arthur presented with 1 month of progressive dyspnea with concern of left lobar pneumonia prior to admission for which he was discharged with antibiotics -CT on admission noted bilateral pulmonary emboli with dilated right ventricle concerning for right heart strain -In addition to elevated troponins, echocardiogram revealed severely dilated right ventricle with pulmonary hypertension -Due to the right heart strain and acute hypoxic respiratory failure requiring 15 L of high flow nasal cannula, he underwent EKOS catheter directed tPA on 08/14/2023 followed by treatment with high intensity heparin drip -Subsequently, his hospital course has been complicated by concern for acute stroke with weakness in the right upper extremity -CT brain x 2 revealed no evidence of acute intracranial process with CT angiography revealing no acute evidence of dissection or aneurysm -He was taken to the OR on 08/15/2022 for thrombectomy of the pulmonary emboli -MRI brain noted 2 foci of acute/subacute CVA in the posterior left frontal lobe measuring 3 mm each -Following discussion with neurology, he was started on high intensity heparin drip due to decreased concern of hemorrhagic conversion -Clinically, he is improved compared to initial presentation -We discussed concern for PE being provoked secondary to process such as pneumonia -He did note history of VTE in his mother with his maternal grandmother having aneurysms. He did note having family history of MTHFR mutation -MTHFR is no longer considered risk factor for VTE and no longer is routinely tested in the setting -We discussed performing hypercoagulable testing outpatient -We will follow-up on APLS testing performed inpatient. Anticardiolipin antibodies are negative with beta-2 glycoprotein and lupus anticoagulant pending. Lupus anticoagulant may result in false positive due to being on heparin -We did discuss eventually transitioning to an oral DOAC such as apixaban or rivaroxaban -He is aware that cessation of smoking will be important to help reduce his risk of recurrent VTE Eris Russell MD
--- NOTE | 2023-08-16 14:55 | P.OP ---
Date of Procedure: 08/15/23 Preoperative Diagnosis: Submassive bilateral pulmonary emboli with respiratory Postoperative Diagnosis: Same. Procedure(s) Performed: Bilateral pulmonary thrombectomy utilizing Inari. Anesthesia: none Surgeon: Tank Dickerson Estimated Blood Loss (ml): 200 Pathology: none sent Condition: stable Disposition: no change Indications for Procedure: Patient is a 43-year-old male who presented with shortness of breath and found to be suffering from massive pulmonary embolic phenomenon bilaterally. The day prior attempt at TPA thrombolytic lysis was discontinued as the patient suffered a neurologic event and was thought that continuation of TPA might potentiate his CVA conversion enterohemorrhagic stroke and thus the TPA was discontinued. Patient is now offered pulmonary thrombectomy assess symptoms have remained unchanged. Description of Procedure: Patient was brought to the cardiac catheterization laboratory. Were unable to lay flat due to respiratory dyspnea and thus he was placed in approximately 20- 30 head elevation position. 2 separate -Swazi sheaths were located in the right femoral area left from the Ekos procedure. Navarro catheter and Glidewire combination were advanced under fluoroscopic control after the Ekos catheters were found to have pulled back and were located in the vena cava as opposed the pulmonary artery. Catheter and guidewire combinations were utilized to advance the catheter through the right ventricle into the pulmonary outflow track and was used to select the right pulmonary artery. Navarro wire was exchanged for a glide a bandage wire and this was placed in the pulmonary artery. The glide catheter was removed. Flow Treiver 24-Swazi sheath and dilator were advanced over the guidewire and positioned in the pulmonary artery. The 20-Swazi aspiration catheter was advanced through the sheath was ever due to the patient's long body length where unable to gain satisfactory contact with the thrombus. As such a 16-Swazi sheath was then advanced through the 20-Swazi sheath and this was utilized to perform suction aspiration of right pulmonary artery thrombus. Once this was completed the left pulmonary artery was cannulated. Large amount of thrombus was returned. Subsequent to this the pat ient's respiratory status improved dramatically. Sheath and wires were removed and pressure was held at the puncture site until all evidence of bleeding ceased. Patient was returned to the ICU. Total fluoroscopy time: 30.7 minutes. Total colon contrast volume utilized: Approximately 100 ML's.
--- NOTE | 2023-08-16 15:08 | P.PN ---
Subjective 43-year-old male patient with morbid obesity and pulmonary embolism He had an embolic stroke after percutaneous therapy for pulmonary embolism This is consistent with paradoxical embolism. No evidence for intracranial hemorrhage Microinfarcts seen on MRI Discussed with vascular surgery At this point I would recommend anticoagulation for management of pulmonary embolism Hold off on any further vascular therapy, IVC filter. Risk of further clot dislodgment and further paradoxical embolism No indication for assessment for T4 at this time and no indication for PFO closure at this point in time At this time I would recommend anticoagulation systemically Management of pulmonary embolism per internal medicine and pulmonary medicine Please consult as needed Objective - Vital Signs Vital signs: Vital Signs Temp 98 F 08/16/23 03:00 Pulse 84 08/16/23 14:00 Resp 24 08/16/23 14:00 BP 139/82 08/16/23 14:00 Pulse Ox 97 08/16/23 14:00 FiO2 Intake & Output 08/15/23 08/16/23 08/16/23 18:59 06:59 18:59 Intake Total 730 631 646.516 Output Total 0 300 1250 Balance 730 331 -603.484 Weight 161.7 kg Intake: IV 730 400 350 Sodium Chloride 0.9% 1, 350 000 ml @ 50 mls/hr IV . Q20H [facility] Rx#:[id number] Sodium Chloride 0.9% 1, 630 400 000 ml @ 75 mls/hr IV . [id number] [facility] Rx#:[id number] Intake, IV Titration 231 56.516 Amount Heparin Sod,Pork in 0.45% 81 NaCl 25,000 unit In 0.45 % NaCl 1 250ml.bag @ 6. 299 UNITS/KG/HR 10 mls/hr IV .Q24H [facility] Rx#: [id number] Heparin Sod,Pork in 0.45% 6.516 NaCl 25,000 unit In 0.45 % NaCl 1 250ml.bag @ 9. 299 UNITS/KG/HR 15.036 mls/hr IV .[id number] [facility] Rx #:[id number] Sodium Chloride 0.9% 1, 150 50 000 ml @ 50 mls/hr IV . Q20H [facility] Rx#:[id number] Oral 240 Output: Urine 0 300 1250 Other: Voiding Method Urinal # Voids 1 1 1 # Bowel Movements 0 - Labs CBC & Chem 7: 08/16/23 09:55 08/16/23 04:01 Labs: Abnormal Lab Results - Last 24 Hours (Table) 08/15/23 08/16/23 08/16/23 Range/Units 18:57 01:24 04:01 WBC 17.2 H 13.8 H 12.8 H (3.8-10.6) k/uL RBC 4.22 L 4.17 L (4.30-5.90) m/uL Hgb 11.8 L 11.8 L 11.6 L (13.0-17.5) gm/dL Hct 37.3 L 36.5 L 36.0 L (39.0-53.0) % MCHC (31.0-37.0) g/dL Neutrophils # 14.6 H 11.4 H 10.4 H (1.3-7.7) k/uL Sodium (137-145) mmol/L Glucose (74-99) mg/dL Total Protein (6.3-8.2) g/dL Albumin (3.5-5.0) g/dL HDL Cholesterol (40.00-60.00) mg/dL 08/16/23 08/16/23 Range/Units 04:01 09:55 WBC 11.7 H (3.8-10.6) k/uL RBC (4.30-5.90) m/uL Hgb 11.7 L (13.0-17.5) gm/dL Hct 37.9 L (39.0-53.0) % MCHC 30.7 L (31.0-37.0) g/dL Neutrophils # 8.8 H (1.3-7.7) k/uL Sodium 135 L (137-145) mmol/L Glucose 120 H (74-99) mg/dL Total Protein 6.2 L (6.3-8.2) g/dL Albumin 3.1 L (3.5-5.0) g/dL HDL Cholesterol 37.40 L (40.00-60.00) mg/dL Microbiology - Last 24 Hours (Table) 08/14/23 09:55 Blood Culture - Preliminary Blood 08/14/23 09:45 Blood Culture - Preliminary Blood
[2023-08-17 06:17] LABS: Basophils % (A) 0 %; Eosinophils # (A) 0.7 k/uL (0-0.7); Eosinophils % (A) 7 %; HCT 34.2 % (39.0-53.0); Lymphocytes # (A) 2.5 k/uL (1.0-4.8); Lymphocytes % (A) 25 %; MCH 27.4 pg (25.0-35.0); MCHC 32.1 g/dL (31.0-37.0); MCV 85.4 fL (80.0-100.0); Mean Platelet Volume 10.3; Monocytes # (A) 0.6 k/uL (0-1.0); Monocytes % (A) 6 %; Neutrophils # (A) 5.9 k/uL (1.3-7.7); Neutrophils % (A) 60 %; Platelet Count 222 k/uL (150-450); RDW 14.3 % (11.5-15.5); WBC 9.9 k/uL (3.8-10.6)
[2023-08-17 06:31] LABS: African American GFR (CKD) >90 (>60 ml/min/1.73 sqM); Anion Gap 9 mmol/L; Blood Urea Nitrogen 12 mg/dL (9-20); Calcium 8.5 mg/dL (8.4-10.2); Carbon Dioxide 23 mmol/L (22-30); Chloride 103 mmol/L (98-107); Glucose 92 mg/dL (74-99); Magnesium 1.9 mg/dL (1.6-2.3); Non-African American GFR(CKD) >90 (>60 ml/min/1.73 sqM); Potassium 4.2 mmol/L (3.5-5.1); Sodium 135 mmol/L (137-145)
[2023-08-17] MEDS: HEPARIN SOD,PORK IN 0.45% NACL 25,000 UNIT in 0.45% NACL 1 250ML.BAG IV SCH (07:01)
[2023-08-17] MEDS: ALBUTEROL NEBULIZED 2.5 MG/3 ML INHALATION SCH ×4 (07:39→18:15)
[2023-08-17] MEDS: SODIUM CHLORIDE 0.9% 1,000 ML IV SCH (07:56)
[2023-08-17] MEDS ORDERED: SENNOSIDES 8.6 MG TAB PO STA (07:59)
[2023-08-17] MEDS: NICOTINE 21MG/24HR PATCH TRANSDERM SCH (08:17)
[2023-08-17] MEDS: PANTOPRAZOLE 40 MG TABLET PO SCH (08:17)
[2023-08-17] MEDS: polyethylene glycoL 3350 17 GM POWD.PACK PO SCH (08:26)
--- NOTE | 2023-08-17 08:39 | P.PN ---
Subjective Progress Note Date: 08/17/23 Principal diagnosis: 1: Submassive on MiraLAX, status post pulmonary thrombectomy. 2: Left popliteal deep venous thrombosis. 3: Suspected PFO. 4: Tobacco use. Patient breathing much improved. Vital signs are stable. Patient is able to lay flat without dyspnea. Objective - Vital Signs Vital signs: Vital Signs Temp 98 F 08/17/23 03:00 Pulse 84 08/17/23 07:49 Resp 18 08/17/23 07:00 BP 131/87 08/17/23 07:00 Pulse Ox 96 08/17/23 07:00 FiO2 Intake & Output 08/16/23 08/17/23 08/17/23 18:59 06:59 18:59 Intake Total 1435.703 4929.841 336.38 Output Total 1650 1925 200 Balance -10.841 -914.159 136.38 Weight 159.6 kg Intake: IV 600 550 100 Sodium Chloride 0.9% 1, 600 550 100 000 ml @ 50 mls/hr IV . Q20H [facility] Rx#:[id number] Intake, IV Titration 199.159 100.841 236.38 Amount Heparin Sod,Pork in 0.45% 149.159 100.841 236.38 NaCl 25,000 unit In 0.45 % NaCl 1 250ml.bag @ 9. 299 UNITS/KG/HR 15.036 mls/hr IV .[id number] [facility] Rx #:[id number] Sodium Chloride 0.9% 1, 50 000 ml @ 50 mls/hr IV . Q20H [facility] Rx#:[id number] Oral 840 360 Output: Urine 1650 1925 200 Other: Voiding Method Urinal Urinal # Voids 1 1 # Bowel Movements 0 - Exam Patient is awake alert. He is currently receiving a breathing treatment. He has full mobility of all extremities. The right femoral venous puncture site is unremarkable. From a vascular surgical standpoint the patient is appropriate for conversion to oral anticoagulation. I do believe the anticoagulation should be continued for at least a 6 month time frame. Additionally because of his MGHFR status he may need lifelong anticoagulation. Hematology may be helpful in this regard. There are no immature restrictions from a vascular surgical standpoint. I would like to see him in the office in follow-up. - Labs CBC & Chem 7: 08/17/23 05:48 08/17/23 05:48 Labs: Abnormal Lab Results - Last 24 Hours (Table) 08/16/23 08/16/23 08/16/23 Range/Units 04:01 09:55 16:24 WBC 11.7 H (3.8-10.6) k/uL RBC (4.30-5.90) m/uL Hgb 11.7 L (13.0-17.5) gm/dL Hct 37.9 L (39.0-53.0) % MCHC 30.7 L (31.0-37.0) g/dL Neutrophils # 8.8 H (1.3-7.7) k/uL APTT 31.3 H (22.0-30.0) sec Sodium (137-145) mmol/L HDL Cholesterol 37.40 L (40.00-60.00) mg/dL 08/16/23 08/17/23 08/17/23 Range/Units 23:15 05:48 05:48 WBC (3.8-10.6) k/uL RBC 4.00 L (4.30-5.90) m/uL Hgb 11.0 L (13.0-17.5) gm/dL Hct 34.2 L (39.0-53.0) % MCHC (31.0-37.0) g/dL Neutrophils # (1.3-7.7) k/uL APTT 47.7 H (22.0-30.0) sec Sodium 135 L (137-145) mmol/L HDL Cholesterol (40.00-60.00) mg/dL 08/17/23 Range/Units 05:48 WBC (3.8-10.6) k/uL RBC (4.30-5.90) m/uL Hgb (13.0-17.5) gm/dL Hct (39.0-53.0) % MCHC (31.0-37.0) g/dL Neutrophils # (1.3-7.7) k/uL APTT 45.5 H (22.0-30.0) sec Sodium (137-145) mmol/L HDL Cholesterol (40.00-60.00) mg/dL Microbiology - Last 24 Hours (Table) 08/14/23 09:55 Blood Culture - Preliminary Blood 08/14/23 09:45 Blood Culture - Preliminary Blood Assessment and Plan Assessment: Deep venous thrombosis with submassive pulmonary emboli, status post primary thrombectomy. Resolved cerebrovascular accident. Tobacco use. Plan: 1: Oral anticoagulation 6 months. 2: Tobacco voidance. 3: I would like to see the patient in the office in follow-up. For: Will sign off. We will reevaluate at your request. Time with Patient: Less than 30
--- NOTE | 2023-08-17 09:45 | P.PN ---
Subjective Progress Note Date: 08/17/23 43-year-old male who was seen in the emergency department, room 7. The patient came into the hospital, complaining of shortness of breath. He's been having shortness of breath now for some time, seemingly started about 1 month ago, when he was in the emergency room here, for an episode of shortness of breath, and was discovered to have left lower lobe pneumonia. The patient was not admitted to the hospital that time. He does not have a family doctor. The patient presents today, August 14, shortness of breath. The patient apparently had low saturations according to EMS, had difficulty breathing. The patient is currently on 6 L of oxygen. Is getting saline at KVO, and a heparin drip. When he was here, for pneumonia 1 month ago, he was discharged with Augmentin and a Z-Amilcar. The patient has been smoking for at least 30+ years. He does continue to smoke. He works as a electrical construction project manager, and only takes Mucinex [id number] at home. Again he does not have a family doctor. White count 14.5, hemoglobin 13, hematocrit 40.7, platelet count normal. D-dimer was 7.81. Sodium 142, potassium 4.5, chlorides 105, CO2 24, BUN 12, and creatinine 0.82. Lactic acid was 3. Troponins were 0.289 and 0.431. N-terminal proBNP was 919, and repeat was 1450. Chest x-ray suggested infiltrate or consolidation in the left lower lobe, and/or effusion. CT angiogram shows bilateral pulmonary emboli, involving segmental branches of the left upper lobe pulmonary artery left lower lobe pulmonary artery, and segmental branches of the right lower lobe pulmonary artery and right upper lobe pulmonary artery. There is dilatation of the right heart, suggesting right heart strain. Venous Doppler studies are pending. Progress note dated 08/15/2023. 43-year-old male seen yesterday in consultation. Please see the note above. The patient was admitted to the hospital with a diagnosis of increasing shortness of breath. The patient was found to have bilateral pulmonary emboli, and right heart strain, and CT angiogram. The vascular surgeon to the patient to the catheterization laboratory yesterday, for EKOS. The patient was discovered to have a left lower extremity DVT. In addition to all of this, the patient had a code stroke called last night. He brain CT was negative, and CT angiogram was also negative. The patient is going to have a repeat brain CT today. The patient was on IV heparin. He was receiving oxygen by high flow nasal cannula at 15 L. Labs include a white count of 14.5, hemoglobin 12.3, hematocrit 38.6, and a normal platelet count. Sodium 138, potassium 4.8, chlorides 106, CO2 20, BUN 10, creatinine 0.73. Albumin is 3.3. Today's repeat brain CT, showed nothing acute. Chest x-ray showed some mild pulmonary vascular congestion, and a left-sided pleural effusion. Progress note dated 08/16/2023. This is a 43-year-old male, who was seen initially in the emergency department, for shortness of breath. The patient was found have bilateral pulmonary emboli, with right heart strain, and went for EKOS, with vascular surgery. In addition, the patient appears to develop a stroke, involving the left frontal lobe, with right-sided weakness, and slurred speech. The patient's currently on saline at 50 mL an hour. He is receiving IV heparin, and is currently on 5 L nasal cannula. White count 11.7, hemoglobin 11.7, hematocrit 37.9, and platelet count was normal. Sodium 135, potassium 4.5, chlorides 104, CO2 24, BUN 14, and creatinine is 0.69. Albumin is 3.1. Brain MRI shows an acute/subacute CVA with at least 2 small foci of infarct in the posterior left frontal lobe measuring 3 mm each. The patient is seen today 08/17/2023 in follow-up in intensive care unit. He is currently sitting up in bed. Awake and alert in no acute distress. He is doing better. Les right arm weakness. Able to lift it. No drift. Speech is clear. He is continued on oxygen at 3 L/m per nasal cannula. Normal saline at 50 ML's per hour. Remains on heparin drip. Remains in sinus rhythm. An undergo a bilateral pulmonary thrombectomy utilizing Inari yesterday with vascular surgery. Follow-up computed tomography scan of the brain revealed microinfarcts is seen on the MRI are not well appreciated on CT. No hemorrhagic conversion. White count 9.9. Hemoglobin 11.0. Platelets 222. Sodium 135. Potassium 4.2. Bicarb 23. BUN 12. Creatinine 0.73. NicoDerm patch in place. Objective - Vital Signs Vital signs: Vital Signs Temp 98.2 F 08/17/23 08:00 Pulse 86 08/17/23 09:00 Resp 24 08/17/23 09:00 BP 126/76 08/17/23 09:00 Pulse Ox 96 08/17/23 09:00 FiO2 Intake & Output 08/16/23 08/17/23 08/17/23 18:59 06:59 18:59 Intake Total 0159.844 3440.841 576.38 Output Total 1650 1925 550 Balance -10.841 -914.159 26.38 Weight 159.6 kg Intake: IV 600 550 100 Sodium Chloride 0.9% 1, 600 550 100 000 ml @ 50 mls/hr IV . Q20H [facility] Rx#:[id number] Intake, IV Titration 199.159 100.841 236.38 Amount Heparin Sod,Pork in 0.45% 149.159 100.841 236.38 NaCl 25,000 unit In 0.45 % NaCl 1 250ml.bag @ 9. 299 UNITS/KG/HR 15.036 mls/hr IV .[id number] [facility] Rx #:[id number] Sodium Chloride 0.9% 1, 50 000 ml @ 50 mls/hr IV . Q20H [facility] Rx#:[id number] Oral 840 360 240 Output: Urine 1650 1925 550 Other: Voiding Method Urinal Urinal Urinal # Voids 1 1 # Bowel Movements 0 - Exam GENERAL EXAM: Alert, oriented 3, pleasant 43-year-old male, on 3 L nasal cannula, comfortable in no apparent distress. HEAD: Normocephalic. EYES: Normal reaction of pupils, equal size. NOSE: Clear with pink turbinates. THROAT: No erythema or exudates. NECK: No masses, no JVD. CHEST: No chest wall deformity. LUNGS: Equal air entry with no crackles, wheeze, rhonchi or dullness. CVS: S1 and S2 normal with no audible murmur, regular rhythm. ABDOMEN: No hepatosplenomegaly, normal bowel sounds, no guarding or rigidity. SPINE: No scoliosis or deformity SKIN: No rashes CENTRAL NERVOUS SYSTEM: No focal deficits, slightly weaker right upper extremity, tone is normal in all 4 extremities. EXTREMITIES: There is no peripheral edema. No clubbing, no cyanosis. Peripheral pulses are intact. - Labs CBC & Chem 7: 08/17/23 05:48 08/17/23 05:48 Labs: Abnormal Lab Results - Last 24 Hours (Table) 08/16/23 08/16/23 08/16/23 Range/Units 04:01 09:55 16:24 WBC 11.7 H (3.8-10.6) k/uL RBC (4.30-5.90) m/uL Hgb 11.7 L (13.0-17.5) gm/dL Hct 37.9 L (39.0-53.0) % MCHC 30.7 L (31.0-37.0) g/dL Neutrophils # 8.8 H (1.3-7.7) k/uL APTT 31.3 H (22.0-30.0) sec Sodium (137-145) mmol/L HDL Cholesterol 37.40 L (40.00-60.00) mg/dL 08/16/23 08/17/23 08/17/23 Range/Units 23:15 05:48 05:48 WBC (3.8-10.6) k/uL RBC 4.00 L (4.30-5.90) m/uL Hgb 11.0 L (13.0-17.5) gm/dL Hct 34.2 L (39.0-53.0) % MCHC (31.0-37.0) g/dL Neutrophils # (1.3-7.7) k/uL APTT 47.7 H (22.0-30.0) sec Sodium 135 L (137-145) mmol/L HDL Cholesterol (40.00-60.00) mg/dL 08/17/23 Range/Units 05:48 WBC (3.8-10.6) k/uL RBC (4.30-5.90) m/uL Hgb (13.0-17.5) gm/dL Hct (39.0-53.0) % MCHC (31.0-37.0) g/dL Neutrophils # (1.3-7.7) k/uL APTT 45.5 H (22.0-30.0) sec Sodium (137-145) mmol/L HDL Cholesterol (40.00-60.00) mg/dL Microbiology - Last 24 Hours (Table) 08/14/23 09:55 Blood Culture - Preliminary Blood 08/14/23 09:45 Blood Culture - Preliminary Blood Assessment and Plan Assessment: Acute hypoxemic respiratory failure, secondary to bilateral pulmonary embolism, with possible right heart strain, based on the CTA. Left frontal lobe CVA, ischemic, with right-sided findings. Slightly recovered Probable PFO. S/P EKOS, 08/14/2023. Incomplete due to acute CVA symptoms. He did undergo bilateral pulmonary embolism thrombectomy with Inari on 08/16/2023 Left lower extremity DVT. Recent episode of pneumonia, one month ago, involving the left lower lobe, treated with antibiotics. History of chronic tobacco use and nicotine dependence. Rule out COPD. Obesity. Plan: The patient was seen and evaluated Computed tomography scan of the brain, Inari procedure, labs and medications reviewed Remains on a heparin drip currently Stable and on 3 L nasal cannula Improvement in the right upper arm weakness Educated regarding the importance of complete smoking cessation Educated regarding the importance of medical compliance We will continue to follow I have personally seen and examined the patient, performed the documentation and the assessment and plan as written. Number of minutes spent on the visit: 10.
--- NOTE | 2023-08-17 10:07 | P.PN ---
Subjective Progress Note Date: 08/17/23 Hospital Course: 43-year-old male with history of morbid obesity presenting with sudden onset shortness of breath. In the ED, temperature was 98.2, pulse 96, blood pressure 128/85, saturating at 92% on 6 L, currently at 97% on 15 L nonrebreather. White count 14.5, d-dimer 7.81, lactic acid 3, troponin 0.289 up to 0.431, proBNP 1400, potassium 4.5. CT each ear chest shows bilateral pulmonary emboli with right heart strain, moderate to large left pleural effusion. Chest x-ray independently interpreted, shows left pleural effusion. EKG independently interpreted shows evidence of S1 Q3 T3, and sinus tachycardia. Patient being admitted for submassive PE. Patient underwent EKOS. When he returned to ICU, patient had strokelike symptoms. Code stroke was called. CT head and CTA did not show any acute process or large vessel occlusion. Unable to do TPA as patient was getting thrombolysis. Repeat CT head also did not show any acute process. Neurology following. Heme also consulted. Echocardiogram showed severely dilated right ventricle with severe pulmonary hypertension global hypokinesis. Venous Doppler showed positive DVT in the left leg. There is a possibility of PFO. Brain MRI discharge acute/subacute CVA with at least 2 small foci of infarct in the posterior left frontal lobe. He is now anticoagulated. No indications for IVC filter at this point. Cardiology also following with regards to possible PFO, no interventions planned at the moment. Vascular surgery considering thrombectomy. Patient remains in the ICU. Subjective: Patient seen and examined at bedside. Continues to have dyspnea, but O2 requirement down to 3L of O2 Physical exam: Gen: awake, alert HEENT: normocephalic, atraumatic, good hearing acuity, moist mucous membranes Resp: good air exchange, breathing comfortably with no accessory muscle use CVS: good distal perfusion x 4, GI: soft, NTTP, ND : no SPT, no CVAT, mena catheter is present MSK: Bilateral pitting edema, no clubbing Neuro: non-focal, moving all extremities Psych: cooperative, euthymic mood Assessment and Plan: Patient is critically ill, prognosis guarded. Acute Submassive bilateral pulmonary embolism Acute left leg DVT acute hypoxic respiratory failure NSTEMI, type 2 Acute left pleural effusion Acute CVA -Patient will be transitioned from heparin to Apixiban today, we will start with 10 mg twice a day for 7 days then transition 5 mg twice a day -Vascular sx note reviewed, did recommend oral anticoagulation, tobacco avoidance, follow-up and office -Pulmonology note reviewed, they recommend oral anticoagulation once cleared by neurology -Nursing discuss with neurology and they're okay with Apixiban -Wean oxygen as able -Cardiology following, needs further evaluation of PFO, but this can be done as an outpatient -hematology following, APS labs were negative -on atorvastatin 40 per cardiology -Patient has family history of MTHFR mutation, we will defer testing at this time since there is no change of management associated with positive gene mutation for elevated homocystine Morbid obesity -outpt structured weight loss program DVT ppx: heparin gtt Code status: Full code Anticipated discharge place: Pending clinical course Anticipated discharge time: Pending clinical course Objective - Vital Signs Vital signs: Vital Signs Temp 98.2 F 08/17/23 08:00 Pulse 86 08/17/23 09:00 Resp 24 08/17/23 09:00 BP 126/76 08/17/23 09:00 Pulse Ox 96 08/17/23 09:00 FiO2 Intake & Output 08/16/23 08/17/23 08/17/23 18:59 06:59 18:59 Intake Total 4306.452 3831.841 576.38 Output Total 1650 1925 550 Balance -10.841 -914.159 26.38 Weight 159.6 kg Intake: IV 600 550 100 Sodium Chloride 0.9% 1, 600 550 100 000 ml @ 50 mls/hr IV . Q20H [facility] Rx#:[id number] Intake, IV Titration 199.159 100.841 236.38 Amount Heparin Sod,Pork in 0.45% 149.159 100.841 236.38 NaCl 25,000 unit In 0.45 % NaCl 1 250ml.bag @ 9. 299 UNITS/KG/HR 15.036 mls/hr IV .[id number] [facility] Rx #:[id number] Sodium Chloride 0.9% 1, 50 000 ml @ 50 mls/hr IV . Q20H [facility] Rx#:[id number] Oral 840 360 240 Output: Urine 1650 1925 550 Other: Voiding Method Urinal Urinal Urinal # Voids 1 1 # Bowel Movements 0 - Labs CBC & Chem 7: 08/17/23 05:48 08/17/23 05:48 Labs: Abnormal Lab Results - Last 24 Hours (Table) 08/16/23 08/16/23 08/16/23 Range/Units 04:01 09:55 16:24 WBC 11.7 H (3.8-10.6) k/uL RBC (4.30-5.90) m/uL Hgb 11.7 L (13.0-17.5) gm/dL Hct 37.9 L (39.0-53.0) % MCHC 30.7 L (31.0-37.0) g/dL Neutrophils # 8.8 H (1.3-7.7) k/uL APTT 31.3 H (22.0-30.0) sec Sodium (137-145) mmol/L HDL Cholesterol 37.40 L (40.00-60.00) mg/dL 08/16/23 08/17/23 08/17/23 Range/Units 23:15 05:48 05:48 WBC (3.8-10.6) k/uL RBC 4.00 L (4.30-5.90) m/uL Hgb 11.0 L (13.0-17.5) gm/dL Hct 34.2 L (39.0-53.0) % MCHC (31.0-37.0) g/dL Neutrophils # (1.3-7.7) k/uL APTT 47.7 H (22.0-30.0) sec Sodium 135 L (137-145) mmol/L HDL Cholesterol (40.00-60.00) mg/dL 08/17/23 Range/Units 05:48 WBC (3.8-10.6) k/uL RBC (4.30-5.90) m/uL Hgb (13.0-17.5) gm/dL Hct (39.0-53.0) % MCHC (31.0-37.0) g/dL Neutrophils # (1.3-7.7) k/uL APTT 45.5 H (22.0-30.0) sec Sodium (137-145) mmol/L HDL Cholesterol (40.00-60.00) mg/dL Microbiology - Last 24 Hours (Table) 08/14/23 09:55 Blood Culture - Preliminary Blood 08/14/23 09:45 Blood Culture - Preliminary Blood
--- NOTE | 2023-08-17 11:32 | P.PN ---
Subjective Progress Note Date: 08/16/23 Patient was seen for a follow-up. Patient's mother was also present today. Patient is doing remarkably better. Patient admits to having headache only when he coughs or spits phlegm real hard. Otherwise he has no headache. Denies any new focal symptoms. He admits to feeling much better. He is very pleasant today. He wants to go home. Patient's mother mentions that she has history of thromboembolism 3 times. She does have MTHFR mutation. I spoke to Dr. Hasnen, vascular surgery, who mentions that patient has been placed dual chamber catheter through which TPA was infused and it also vibrates to help with the dissolving the clot. He further mentioned that he performed section thrombectomy of the clot, which decreased significant amount of clot burden and that is the reason that he is better. Dr. Hansen mentions that if patient can receive full dose anticoagulation, patient will not need IVC filter placement and that procedure will be canceled. Patient had undergone MRI of the brain which revealed acute/subacute CVA with at least 2 small foci of infarct in the posterior left frontal lobe measuring up to 3 mm each. Nonspecific white matter changes, left greater than right, not in a typical distribution of demyelination. Possibly in the watershed region between the [place] and MCA territories. After I was reported this MRI by Dr. Olmos last night, I had called the nurse as well as spoke to Dr. He, about clearing for full dose anticoagulation with heparin. Objective - Vital Signs Vital signs: Vital Signs Temp 98 F 08/16/23 03:00 Pulse 84 08/16/23 14:00 Resp 24 08/16/23 14:00 BP 139/82 08/16/23 14:00 Pulse Ox 97 08/16/23 14:00 FiO2 Intake & Output 08/15/23 08/16/23 08/16/23 18:59 06:59 18:59 Intake Total 730 631 646.516 Output Total 0 300 1250 Balance 730 331 -603.484 Weight 161.7 kg Intake: IV 730 400 350 Sodium Chloride 0.9% 1, 350 000 ml @ 50 mls/hr IV . Q20H [facility] Rx#:[id number] Sodium Chloride 0.9% 1, 630 400 000 ml @ 75 mls/hr IV . [id number] [facility] Rx#:[id number] Intake, IV Titration 231 56.516 Amount Heparin Sod,Pork in 0.45% 81 NaCl 25,000 unit In 0.45 % NaCl 1 250ml.bag @ 6. 299 UNITS/KG/HR 10 mls/hr IV .Q24H [facility] Rx#: [id number] Heparin Sod,Pork in 0.45% 6.516 NaCl 25,000 unit In 0.45 % NaCl 1 250ml.bag @ 9. 299 UNITS/KG/HR 15.036 mls/hr IV .[id number] [facility] Rx #:[id number] Sodium Chloride 0.9% 1, 150 50 000 ml @ 50 mls/hr IV . Q20H [facility] Rx#:[id number] Oral 240 Output: Urine 0 300 1250 Other: Voiding Method Urinal # Voids 1 1 1 # Bowel Movements 0 - Exam Patient is alert and awake. Speech and language functions are normal. Patient can name and repeat very well. His verbal fluency is appears pretty normal. No obvious aphasia or dysarthria. On cranial nerve examination pupils are equal, round and reacting, visual gandhi are full with no neglect. Face is symmetric. Tongue protrudes to the midline. On muscle strength testing there is right pronator drift, slightly hits the bed but brings it up. There is no drift of the right leg. Her right arm appears much stronger. Sensory to touch is equal with no neglect. No ataxia for [id number] testing. - Labs CBC & Chem 7: 08/17/23 05:48 08/17/23 05:48 Labs: Abnormal Lab Results - Last 24 Hours (Table) 08/15/23 08/16/23 08/16/23 Range/Units 18:57 01:24 04:01 WBC 17.2 H 13.8 H 12.8 H (3.8-10.6) k/uL RBC 4.22 L 4.17 L (4.30-5.90) m/uL Hgb 11.8 L 11.8 L 11.6 L (13.0-17.5) gm/dL Hct 37.3 L 36.5 L 36.0 L (39.0-53.0) % MCHC (31.0-37.0) g/dL Neutrophils # 14.6 H 11.4 H 10.4 H (1.3-7.7) k/uL Sodium (137-145) mmol/L Glucose (74-99) mg/dL Total Protein (6.3-8.2) g/dL Albumin (3.5-5.0) g/dL HDL Cholesterol (40.00-60.00) mg/dL 08/16/23 08/16/23 Range/Units 04:01 09:55 WBC 11.7 H (3.8-10.6) k/uL RBC (4.30-5.90) m/uL Hgb 11.7 L (13.0-17.5) gm/dL Hct 37.9 L (39.0-53.0) % MCHC 30.7 L (31.0-37.0) g/dL Neutrophils # 8.8 H (1.3-7.7) k/uL Sodium 135 L (137-145) mmol/L Glucose 120 H (74-99) mg/dL Total Protein 6.2 L (6.3-8.2) g/dL Albumin 3.1 L (3.5-5.0) g/dL HDL Cholesterol 37.40 L (40.00-60.00) mg/dL Microbiology - Last 24 Hours (Table) 08/14/23 09:55 Blood Culture - Preliminary Blood 08/14/23 09:45 Blood Culture - Preliminary Blood Assessment and Plan Assessment: * Acute ischemic stroke, manifesting with right arm paresis, mild right-sided neglect and mild expressive aphasia, with NIH stroke scale of 6. Patient's stroke onset was after patient underwent cannulation of the right common femoral vein 2, and placement of pulmonary artery catheter with initiation of TPA thrombolysis with [place] catheter bilaterally. Patient is doing much better, and the NIH stroke is down to 2 * Acute left lower extremity DVT, with submassive bilateral PE. * Status post EKOS 08/14/2023 * Rule out hypercoagulable state * Recent admission for pneumonia. * Tobacco use * Obesity Plan: * MRI of the brain without contrast 08/15/2023 revealed acute/subacute CVA with at least 2 small foci of infarct in the posterior left frontal lobe, measuring up to 3 mm each. Nonspecific white matter change, left greater than right, not in a typical distribution for demyelination. Possibly in the watershed region between the [place] and MCA territories. I reviewed MRI, agree with the findings, although it appears that the FLAIR signal abnormality is present mostly on the left between left [place]/MCA territory, but also present in the watershed distribution frontally in the right hemisphere as well. Patient does not have any history of hypotension, in fact his running elevated blood pressure. Uncertain if represents atypical PRES. * Patient cleared to be started on full dose anticoagulation with heparin. May give bolus doses, but avoid PTT going beyond 79 seconds. * Repeat stat CT head performed this morning shows microinfarcts seen on the MRI are not well appreciated on the CT. No hemorrhagic conversion. I personally reviewed CT head, agree with the findings. * 2-D echo revealed normal left ventricular size and systolic function with EF 55-60%. Severely increased left-ventricular wall thickness. Normal left ventricular wall motion. Severe right ventricular dilation with global hypokinesis. Severe pulmonary hypertension. Left atrium is normal in size. * Recommend JOYA for further evaluation of any embolic source, possible PFO. * CTA head and neck showed: No evidence of dissection of the cervical internal carotid arteries or vertebral arteries or any evidence of significant stenosis at the carotid bifurcations. No evidence of intracranial high-grade stenosis or intracranial aneurysm. Air space opacities in the right lung, correlate for pneumonia versus pulmonary infarction in the setting of pulmonary embolus. Small left pleural effusion partially visualized. * Fasting a.m. lipid panel cholesterol 120, LDL 64, HDL 37, triglycerides 92. Continue Lipitor 40 mg at bedtime (new since admission). * Hemoglobin A1c 5.8 * Optimize control of blood pressure to normotensive level. * Appreciate hematology input for possible hypercoagulable state. Cardiolipin antibodies negative, duffy virus PCR negative. * Neuro checks every 30 minutes. * Telemetry monitoring rule out any arrhythmia * PT, OT, speech therapy * Recommend complete tobacco cessation. * DVT prophylaxis: Patient on heparin. * Discussed with patient's mother, vascular surgery and nursing staff in detail. Time with Patient: Greater than 30
[2023-08-17 11:48] VITALS: BMI 43.9
--- NOTE | 2023-08-17 11:54 | P.PN ---
Subjective Progress Note Date: 08/17/23 This is Reinier Nettles NP, I'm dictating on behalf of Dr. Del Rosario's H&P and A&P. Patient was interviewed and examined. Patient is a pleasant 43-year-old male with morbid obesity and pulmonary embolism who had an embolic stroke after percutaneous therapy for pulmonary embolism. Today the patient does appear neurologically improved. He is able to lift his right arm, flex his right wrist, which is significantly improved when compared to yesterday. This morning the patient's denying chest pain and shor tness of breath. Vitals are stable. GENERAL: Well-appearing, well-nourished and in no acute distress. NECK: Supple without JVD or thyromegaly. LUNGS: Breath sounds clear to auscultation bilaterally. Respiration equal and unlabored. No wheezes, rales or rhonchi. HEART: Regular rate and rhythm without murmurs, rubs or gallops. S1 and S2 heard. EXTREMITIES: Normal range of motion, no edema. No clubbing or cyanosis. Peripheral pulses intact and strong. VITALS: Temp 98.2, pulse 84, respirations 22, blood pressure 126/71, O2 saturation 95% on 3 L TELEMETRY: Normal sinus rhythm LABS: White count 9.9, hemoglobin 11, platelets 222, sodium 135, potassium 4.2, B1 12, creatinine 0.73, magnesium 1.9 IMPRESSION: 1. Acute CVA following TPA administration via EKOS 2. Acute pulmonary embolism 3. History of tobacco abuse PLAN: Recommend systemic anticoagulation. Management of pulmonary embolism per internal medicine and pulmonary medicine. Please contact if further recommendations are needed. Objective - Vital Signs Vital signs: Vital Signs Temp 98.2 F 08/17/23 08:00 Pulse 78 08/17/23 11:00 Resp 25 H 08/17/23 11:00 BP 129/80 08/17/23 11:00 Pulse Ox 97 08/17/23 11:00 FiO2 Intake & Output 08/16/23 08/17/23 08/17/23 18:59 06:59 18:59 Intake Total 2192.988 6447.841 576.38 Output Total 1650 1925 550 Balance -10.841 -914.159 26.38 Weight 159.6 kg 159.6 kg Intake: IV 600 550 100 Sodium Chloride 0.9% 1, 600 550 100 000 ml @ 50 mls/hr IV . Q20H [facility] Rx#:[id number] Intake, IV Titration 199.159 100.841 236.38 Amount Heparin Sod,Pork in 0.45% 149.159 100.841 236.38 NaCl 25,000 unit In 0.45 % NaCl 1 250ml.bag @ 9. 299 UNITS/KG/HR 15.036 mls/hr IV .[id number] [facility] Rx #:[id number] Sodium Chloride 0.9% 1, 50 000 ml @ 50 mls/hr IV . Q20H [facility] Rx#:[id number] Oral 840 360 240 Output: Urine 1650 1925 550 Other: Voiding Method Urinal Urinal Urinal # Voids 1 1 # Bowel Movements 0 - Labs CBC & Chem 7: 08/17/23 05:48 08/17/23 05:48 Labs: Abnormal Lab Results - Last 24 Hours (Table) 08/16/23 08/16/23 08/16/23 Range/Units 04:01 16:24 23:15 RBC (4.30-5.90) m/uL Hgb (13.0-17.5) gm/dL Hct (39.0-53.0) % APTT 31.3 H 47.7 H (22.0-30.0) sec Sodium (137-145) mmol/L HDL Cholesterol 37.40 L (40.00-60.00) mg/dL 08/17/23 08/17/23 08/17/23 Range/Units 05:48 05:48 05:48 RBC 4.00 L (4.30-5.90) m/uL Hgb 11.0 L (13.0-17.5) gm/dL Hct 34.2 L (39.0-53.0) % APTT 45.5 H (22.0-30.0) sec Sodium 135 L (137-145) mmol/L HDL Cholesterol (40.00-60.00) mg/dL Microbiology - Last 24 Hours (Table) 08/14/23 09:55 Blood Culture - Preliminary Blood 08/14/23 09:45 Blood Culture - Preliminary Blood
[2023-08-17] MEDS: Apixaban Initiation Dose--VTE 5 MG TAB PO SCH ×2 (11:57→20:28)
[2023-08-17] MEDS: ATORVASTATIN 40 MG TAB PO SCH (20:28)
[2023-08-18] MEDS: Apixaban Initiation Dose--VTE 5 MG TAB PO SCH ×2 (07:27→20:13)
[2023-08-18] MEDS: PANTOPRAZOLE 40 MG TABLET PO SCH (07:27)
[2023-08-18] MEDS: NICOTINE 21MG/24HR PATCH TRANSDERM SCH (07:27)
[2023-08-18] MEDS: polyethylene glycoL 3350 17 GM POWD.PACK PO SCH (07:28)
[2023-08-18 08:57] LABS: Basophils # (A) 0.08 X 10*3/uL (0.00-0.10); Basophils % (A) 0.7 %; Eosinophils # (A) 1.29 X 10*3/uL (0.04-0.35); Eosinophils % (A) 11.5 %; HCT 35.7 % (39.6-50.0); Lymphocytes # (A) 2.19 X 10*3/uL (0.90-5.00); Lymphocytes % (A) 19.5 %; MCH 26.3 pg (27.0-32.0); MCHC 30.8 g/dL (32.0-37.0); MCV 85.2 FL (80.0-97.0); Mean Platelet Volume 12.4 FL (9.5-12.2); Monocytes # (A) 0.82 X 10*3/uL (0.20-1.00); Monocytes % (A) 7.3 %; NRBC Per 100 WBC 0 X 10*3/uL (0.00-0.01); Neutrophils % (A) 60.6 %; Platelet Count 254 X 10*3/uL (140-440); RBC 4.19 X 10*6/uL (4.40-5.60); RDW 14.4 % (11.5-14.5); WBC 11.22 X 10*3/uL (4.50-10.00)
--- NOTE | 2023-08-18 09:07 | P.PN ---
Subjective Progress Note Date: 08/17/23 08/17/2023: Patient was seen for a follow-up. Patient's mother was also present. Patient states he is feeling even much better, he walked and took her shower. He believes that he is about 90-95% better. His right arm is not as strong, or full function but otherwise feels much better. 08/16/2023: Patient was seen for a follow-up. Patient's mother was also present today. Patient is doing remarkably better. Patient admits to having headache only when he coughs or spits phlegm real hard. Otherwise he has no headache. Denies any new focal symptoms. He admits to feeling much better. He is very pleasant today. He wants to go home. Patient's mother mentions that she has history of thromboembolism 3 times. She does have MTHFR mutation. I spoke to Dr. Hansen, vascular surgery, who mentions that patient has been placed dual chamber catheter through which TPA was infused and it also vibrates to help with the dissolving the clot. He further mentioned that he performed section thrombectomy of the clot, which decreased significant amount of clot burden and that is the reason that he is better. Dr. Hansen mentions that if patient can receive full dose anticoagulation, patient will not need IVC filter placement and that procedure will be canceled. Patient had undergone MRI of the brain which revealed acute/subacute CVA with at least 2 small foci of infarct in the posterior left frontal lobe measuring up to 3 mm each. Nonspecific white matter changes, left greater than right, not in a typical distribution of demyelination. Possibly in the watershed region between the [place] and MCA territories. After I was reported this MRI by Dr. Olmos last night, I had called the nurse as well as spoke to Dr. He, about clearing for full dose anticoagulation with heparin. Objective - Vital Signs Vital signs: Vital Signs Temp 97.9 F 08/17/23 13:51 Pulse 89 08/17/23 13:51 Resp 20 08/17/23 13:51 BP 161/97 08/17/23 13:51 Pulse Ox 91 L 08/17/23 13:51 FiO2 Intake & Output 08/16/23 08/17/23 08/17/23 18:59 06:59 18:59 Intake Total 1611.987 4749.841 954.385 Output Total 1650 1925 950 Balance -10.841 -914.159 4.385 Weight 159.6 kg 159.6 kg Intake: IV 600 550 100 Sodium Chloride 0.9% 1, 600 550 100 000 ml @ 50 mls/hr IV . Q20H [facility] Rx#:[id number] Intake, IV Titration 199.159 100.841 374.385 Amount Heparin Sod,Pork in 0.45% 149.159 100.841 374.385 NaCl 25,000 unit In 0.45 % NaCl 1 250ml.bag @ 9. 299 UNITS/KG/HR 15.036 mls/hr IV .[id number] [facility] Rx #:[id number] Sodium Chloride 0.9% 1, 50 000 ml @ 50 mls/hr IV . Q20H [facility] Rx#:[id number] Oral 840 360 480 Output: Urine 1650 1925 950 Other: Voiding Method Urinal Urinal Urinal # Voids 1 1 # Bowel Movements 0 - Exam Patient is alert and awake. Speech and language functions are normal. Patient can name and repeat very well. His verbal fluency is completely normal. No obvious aphasia or dysarthria. On cranial nerve examination pupils are equal, round and reacting, visual gandhi are full with no neglect. Face is symmetric. Tongue protrudes to the midline. On muscle strength testing there is right pronation, but no drift. There is no drift of the right leg. The strength is normal in the arms and legs bilaterally. Sensory to touch is equal with no neglect. No ataxia for [id number]-[id number] testing. - Labs CBC & Chem 7: 08/18/23 04:05 08/17/23 05:48 Labs: Abnormal Lab Results - Last 24 Hours (Table) 08/16/23 08/16/23 08/17/23 Range/Units 16:24 23:15 05:48 RBC 4.00 L (4.30-5.90) m/uL Hgb 11.0 L (13.0-17.5) gm/dL Hct 34.2 L (39.0-53.0) % APTT 31.3 H 47.7 H (22.0-30.0) sec Sodium (137-145) mmol/L 08/17/23 08/17/23 Range/Units 05:48 05:48 RBC (4.30-5.90) m/uL Hgb (13.0-17.5) gm/dL Hct (39.0-53.0) % APTT 45.5 H (22.0-30.0) sec Sodium 135 L (137-145) mmol/L Microbiology - Last 24 Hours (Table) 08/14/23 09:55 Blood Culture - Preliminary Blood 08/14/23 09:45 Blood Culture - Preliminary Blood Assessment and Plan Assessment: * Acute ischemic stroke, manifesting with right arm paresis, mild right-sided neglect and mild expressive aphasia, with NIH stroke scale of 6. Patient's stroke onset was after patient underwent cannulation of the right common femoral vein 2, and placement of pulmonary artery catheter with initiation of TPA thrombolysis with [place] catheter bilaterally. Patient is doing much better, and the NIH stroke is down to 1 as of today, with right arm pronation. * Acute left lower extremity DVT, with submassive bilateral PE. * Status post EKOS 08/14/2023 * Rule out hypercoagulable state * Recent admission for pneumonia. * Tobacco use * Obesity Plan: * Patient is doing remarkably better. His initial NIH stroke scale of 6 is down to 1 now. * Patient is off heparin, and now started on Eliquis 10 mg twice a day for 7 days and then switch to Eliquis 5 mg twice a day. * MRI of the brain without contrast 08/15/2023 revealed acute/subacute CVA with at least 2 small foci of infarct in the posterior left frontal lobe, measuring up to 3 mm each. Nonspecific white matter change, left greater than right, not in a typical distribution for demyelination. Possibly in the watershed region between the [place] and MCA territories. I reviewed MRI, agree with the findings, although it appears that the FLAIR signal abnormality is present mostly on the left between left [place]/MCA territory, but also present in the watershed distribution frontally in the right hemisphere as well. Patient does not have any history of hypotension, in fact his running elevated blood pressure. Uncertain if represents atypical PRES. * Repeat stat CT head performed 08/16/2023 shows microinfarcts seen on the MRI are not well appreciated on the CT. No hemorrhagic conversion. I personally reviewed CT head, agree with the findings. * 2-D echo revealed normal left ventricular size and systolic function with EF 55-60%. Severely increased left-ventricular wall thickness. Normal left ventricular wall motion. Severe right ventricular dilation with global hypokinesis. Severe pulmonary hypertension. Left atrium is normal in size. * Recommend JOYA for further evaluation of any embolic source, possible PFO. * CTA head and neck showed: No evidence of dissection of the cervical internal carotid arteries or vertebral arteries or any evidence of significant stenosis at the carotid bifurcations. No evidence of intracranial high-grade stenosis or intracranial aneurysm. Air space opacities in the right lung, correlate for pneumonia versus pulmonary infarction in the setting of pulmonary embolus. Small left pleural effusion partially visualized. * Fasting a.m. lipid panel cholesterol 120, LDL 64, HDL 37, triglycerides 92. Continue Lipitor 40 mg at bedtime (new since admission). * Hemoglobin A1c 5.8 * Optimize control of blood pressure to normotensive level. * Appreciate hematology input for possible hypercoagulable state. Cardiolipin antibodies negative, duffy virus PCR negative. * Neuro checks every 4 hours. * Telemetry monitoring rule out any arrhythmia * PT, OT, speech therapy * Recommend complete tobacco cessation. * DVT prophylaxis: Patient on Eliquis * Discussed with patient's mother and nursing staff in detail. * Neurologically clear. Recommend follow-up with neurologist outpatient in 1-2 weeks.
[2023-08-18] MEDS: ALBUTEROL NEBULIZED 2.5 MG/3 ML INHALATION SCH ×4 (09:23→22:27)
[2023-08-18 10:20] LABS: BUN/Creat Ratio 14.11 Ratio (12.00-20.00); Blood Urea Nitrogen 12.7 mg/dL (9.0-27.0); Calcium 8.8 mg/dL (8.7-10.3); Carbon Dioxide 27.8 mmol/L (21.6-31.8); Chloride 106 mmol/L (96-109); Glucose 112 mg/dL (70-110); Potassium 4.1 mmol/L (3.5-5.5); Sodium 143 mmol/L (135-145)
--- NOTE | 2023-08-18 10:40 | P.PN ---
Subjective Progress Note Date: 08/18/23 Hospital Course: 43-year-old male with history of morbid obesity presenting with sudden onset shortness of breath. In the ED, temperature was 98.2, pulse 96, blood pressure 128/85, saturating at 92% on 6 L, currently at 97% on 15 L nonrebreather. White count 14.5, d-dimer 7.81, lactic acid 3, troponin 0.289 up to 0.431, proBNP 1400, potassium 4.5. CT each ear chest shows bilateral pulmonary emboli with right heart strain, moderate to large left pleural effusion. Chest x-ray independently interpreted, shows left pleural effusion. EKG independently interpreted shows evidence of S1 Q3 T3, and sinus tachycardia. Patient being admitted for submassive PE. Patient underwent EKOS. When he returned to ICU, patient had strokelike symptoms. Code stroke was called. CT head and CTA did not show any acute process or large vessel occlusion. Unable to do TPA as patient was getting thrombolysis. Repeat CT head also did not show any acute process. Neurology following. Heme also consulted. Echocardiogram showed severely dilated right ventricle with severe pulmonary hypertension global hypokinesis. Venous Doppler showed positive DVT in the left leg. There is a possibility of PFO. Brain MRI discharge acute/subacute CVA with at least 2 small foci of infarct in the posterior left frontal lobe. He is now anticoagulated. No indications for IVC filter at this point. Cardiology also following with regards to possible PFO, no interventions planned at the moment. Vascular surgery considering thrombectomy. Patient remains in the ICU. Subjective: Patient seen and examined at bedside. Pt denies dyspnea at this time. Now on room air, but borderline O2. Will need 6MWT tomorrow (eval for home O2) with likely discharge tomorrow. Physical exam: Gen: awake, alert HEENT: normocephalic, atraumatic, good hearing acuity, moist mucous membranes Resp: good air exchange, breathing comfortably with no accessory muscle use CVS: good distal perfusion x 4, GI: soft, NTTP, ND : no SPT, no CVAT, mena catheter is present MSK: Bilateral pitting edema, no clubbing Neuro: non-focal, moving all extremities Psych: cooperative, euthymic mood Assessment and Plan: Patient is critically ill, prognosis guarded. Acute Submassive bilateral pulmonary embolism Acute left leg DVT acute hypoxic respiratory failure NSTEMI, type 2 Acute left pleural effusion Acute CVA -Patient transitioned from heparin to Apixiban 08/17, we will start with 10 mg twice a day for 7 days then transition 5 mg twice a day -Vascular sx note reviewed, did recommend oral anticoagulation, tobacco avoidance, follow-up and office -Pulmonology note reviewed, they recommend oral anticoagulation once cleared by neurology -Nursing discuss with neurology and they're okay with Apixiban -Wean oxygen as able -Cardiology following, needs further evaluation of PFO, but this can be done as an outpatient -hematology following, APS labs were negative -on atorvastatin 40 per cardiology -Patient has family history of MTHFR mutation, we will defer testing at this time since there is no change of management associated with positive gene mutation for elevated homocystine Morbid obesity -outpt structured weight loss program DVT ppx: apixaban Code status: Full code Anticipated discharge place: Pending clinical course Anticipated discharge time: Pending clinical course Objective - Vital Signs Vital signs: Vital Signs Temp 97.8 F 08/18/23 07:51 Pulse 80 08/18/23 07:51 Resp 18 08/18/23 07:51 BP 127/83 08/18/23 07:51 Pulse Ox 92 L 08/18/23 07:51 FiO2 Intake & Output 08/17/23 08/18/23 08/18/23 18:59 06:59 18:59 Intake Total 954.385 Output Total 950 Balance 4.385 Weight 159.6 kg Intake: IV 100 Sodium Chloride 0.9% 1, 100 000 ml @ 50 mls/hr IV . Q20H [facility] Rx#:[id number] Intake, IV Titration 374.385 Amount Heparin Sod,Pork in 0.45% 374.385 NaCl 25,000 unit In 0.45 % NaCl 1 250ml.bag @ 9. 299 UNITS/KG/HR 15.036 mls/hr IV .[id number] [facility] Rx #:[id number] Oral 480 Output: Urine 950 Other: Voiding Method Urinal # Voids 1 2 - Labs CBC & Chem 7: 08/18/23 04:05 08/18/23 04:05 Labs: Abnormal Lab Results - Last 24 Hours (Table) 08/18/23 08/18/23 Range/Units 04:05 04:05 WBC 11.22 H (4.50-10.00) X 10*3/uL RBC 4.19 L (4.40-5.60) X 10*6/uL Hgb 11.0 L (13.0-17.0) g/dL Hct 35.7 L (39.6-50.0) % MCH 26.3 L (27.0-32.0) pg MCHC 30.8 L (32.0-37.0) g/dL MPV 12.4 H (9.5-12.2) FL Eosinophils # 1.29 H (0.04-0.35) X 10*3/uL Glucose 112 H (70-110) mg/dL Microbiology - Last 24 Hours (Table) 08/14/23 09:55 Blood Culture - Preliminary Blood 08/14/23 09:45 Blood Culture - Preliminary Blood
--- NOTE | 2023-08-18 11:56 | P.PN ---
Subjective Progress Note Date: 08/18/23 Principal diagnosis: Pulmonary embolism. Pulmonary consult dated 08/14/2023. 43-year-old male who was seen in the emergency department, room 7. The patient came into the hospital, complaining of shortness of breath. He's been having shortness of breath now for some time, seemingly started about 1 month ago, when he was in the emergency room here, for an episode of shortness of breath, and was discovered to have left lower lobe pneumonia. The patient was not admitted to the hospital that time. He does not have a family doctor. The patient presents today, August 14, shortness of breath. The patient apparently had low saturations according to EMS, had difficulty breathing. The patient is currently on 6 L of oxygen. Is getting saline at KVO, and a heparin drip. When he was here, for pneumonia 1 month ago, he was discharged with Augmentin and a Z-Amilcar. The patient has been smoking for at least 30+ years. He does continue to smoke. He works as a construction equipment operator, and only takes Mucinex [id number] at home. Again he does not have a family doctor. White count 14.5, hemoglobin 13, hematocrit 40.7, platelet count normal. D-dimer was 7.81. Sodium 142, potassium 4.5, chlorides 105, CO2 24, BUN 12, and creatinine 0.82. Lactic acid was 3. Troponins were 0.289 and 0.431. N-terminal proBNP was 919, and repeat was 1450. Chest x-ray suggested infiltrate or consolidation in the left lower lobe, and/or effusion. CT angiogram shows bilateral pulmonary emboli, involving segmental branches of the left upper lobe pulmonary artery left lower lobe pulmonary artery, and segmental branches of the right lower lobe pulmonary artery and right upper lobe pulmonary artery. There is dilatation of the right heart, suggesting right heart strain. Venous Doppler studies are pending. Progress note dated 08/15/2023. 43-year-old male seen yesterday in consultation. Please see the note above. The patient was admitted to the hospital with a diagnosis of increasing shortness of breath. The patient was found to have bilateral pulmonary emboli, and right heart strain, and CT angiogram. The vascular surgeon to the patient to the catheterization laboratory yesterday, for EKOS. The patient was discovered to have a left lower extremity DVT. In addition to all of this, the patient had a code stroke called last night. He brain CT was negative, and CT angiogram was also negative. The patient is going to have a repeat brain CT today. The patient was on IV heparin. He was receiving oxygen by high flow nasal cannula at 15 L. Labs include a white count of 14.5, hemoglobin 12.3, hematocrit 38.6, and a normal platelet count. Sodium 138, potassium 4.8, chlorides 106, CO2 20, BUN 10, creatinine 0.73. Albumin is 3.3. Today's repeat brain CT, showed nothing acute. Chest x-ray showed some mild pulmonary vascular congestion, and a left-sided pleural effusion. Progress note dated 08/16/2023. This is a 43-year-old male, who was seen initially in the emergency department, for shortness of breath. The patient was found have bilateral pulmonary emboli, with right heart strain, and went for EKOS, with vascular surgery. In addition, the patient appears to develop a stroke, involving the left frontal lobe, with right-sided weakness, and slurred speech. The patient's currently on saline at 50 mL an hour. He is receiving IV heparin, and is currently on 5 L nasal cannula. White count 11.7, hemoglobin 11.7, hematocrit 37.9, and platelet count was normal. Sodium 135, potassium 4.5, chlorides 104, CO2 24, BUN 14, and creatinine is 0.69. Albumin is 3.1. Brain MRI shows an acute/subacute CVA with at least 2 small foci of infarct in the posterior left frontal lobe measuring 3 mm each. Progress note dated 08/18/2023. This is a 43-year-old male who was seen in the emergency department, for shortness of breath. The patient was found to have bilateral pulmonary emboli, with right heart strain, and underwent EKOS, by vascular surgery. The patient also was found to develop a stroke, involving the left frontal lobe, with right- sided weakness and slurred speech. The patient is seen today in room 454. He is doing much better. He is on room air. He's not requiring any IV fluids. He is hoping to be discharged soon. The patient is counseled about the importance of smoking cessation. Currently labs include a white count 11.22, hemoglobin 11, hematocrit 35.7, and a platelet count of 254,000. Sodium 143, potassium 4.1, chlorides 106, CO2 28, BUN 13, and creatinine 0.9. Objective - Vital Signs Vital signs: Vital Signs Temp 97.8 F 08/18/23 07:51 Pulse 80 08/18/23 07:51 Resp 18 08/18/23 07:51 BP 127/83 08/18/23 07:51 Pulse Ox 92 L 08/18/23 07:51 FiO2 Intake & Output 08/17/23 08/18/23 08/18/23 18:59 06:59 18:59 Intake Total 954.385 Output Total 950 Balance 4.385 Weight 159.6 kg Intake: IV 100 Sodium Chloride 0.9% 1, 100 000 ml @ 50 mls/hr IV . Q20H [facility] Rx#:[id number] Intake, IV Titration 374.385 Amount Heparin Sod,Pork in 0.45% 374.385 NaCl 25,000 unit In 0.45 % NaCl 1 250ml.bag @ 9. 299 UNITS/KG/HR 15.036 mls/hr IV .[id number] [facility] Rx #:[id number] Oral 480 Output: Urine 950 Other: Voiding Method Urinal # Voids 1 2 - Exam No respiratory distress, oriented 3, no conversational dyspnea or use of accessory muscles. Currently on room air. HEENT examination is grossly unremarkable. Neck supple. Full range of motion. No adenopathy thyromegaly or neck vein distention. Cardiovascular examination reveals regular rhythm rate. S1-S2 normal. No S3 or S4. No discernible murmur noted. Heart sounds are distant. Heart rate 80 bpm. Lungs reveal clear breath sounds. Breath sounds are equal bilaterally. No adventitious lung sounds including wheezes rhonchi or crackles. Saturation is 94% on room air. Abdomen soft bowel sounds are heard. No masses or tenderness. Extremities are intact. No cyanosis clubbing or edema. Skin is without rash or lesion. Neurologic examination is brief but nonfocal. - Labs CBC & Chem 7: 08/18/23 04:05 08/18/23 04:05 Labs: Abnormal Lab Results - Last 24 Hours (Table) 08/18/23 08/18/23 Range/Units 04:05 04:05 WBC 11.22 H (4.50-10.00) X 10*3/uL RBC 4.19 L (4.40-5.60) X 10*6/uL Hgb 11.0 L (13.0-17.0) g/dL Hct 35.7 L (39.6-50.0) % MCH 26.3 L (27.0-32.0) pg MCHC 30.8 L (32.0-37.0) g/dL MPV 12.4 H (9.5-12.2) FL Eosinophils # 1.29 H (0.04-0.35) X 10*3/uL Glucose 112 H (70-110) mg/dL Microbiology - Last 24 Hours (Table) 08/14/23 09:55 Blood Culture - Preliminary Blood 08/14/23 09:45 Blood Culture - Preliminary Blood Assessment and Plan Assessment: Acute hypoxemic respiratory failure, secondary to bilateral pulmonary embolism, with possible right heart strain, based on the CTA. Left frontal lobe CVA, ischemic, with right-sided findings. Probable PFO. S/P EKOS, 08/14/2023. Left lower extremity DVT. Recent episode of pneumonia, one month ago, involving the left lower lobe, treated with antibiotics. History of chronic tobacco use and nicotine dependence. Rule out COPD. Obesity. Plan: Plan dated 08/14/2023. The patient was started on IV heparin. The patient should have a stat echocardiogram. The patient is getting Dopplers of the lower extremities. The patient's currently on 6 L and IV heparin. Vascular or cardiovascular service should be asked to see this patient, to determine whether or not he would be a candidate for EKOS or suction thrombectomy. Additional recommendations and s uggestions are forthcoming. His hemodynamic status is currently stable with a blood pressure 128/85. They may choose to treat him conservatively with IV heparin, and eventually a factor X a inhibitor. Doppler of the lower extremities reveal a DVT on the left. Plan dated 08/15/2023. The patient is seen in the intensive care unit, room 257. The patient had a repeat brain CT this morning, which again showed nothing acute. The patient continues on IV heparin. The patient's on high flow nasal cannula. The patient did undergo EKOS yesterday, bilateral of the surgeons. We will continue to yemi guo make recommendations where appropriate. Doppler of the left lower extremity was positive for DVT. Prognosis is guarded. Labs, x-rays, and medications are reviewed. Plan dated 08/16/2023. Neurology the patient is a good candidate for anticoagulation with heparin. They don't feel strongly that the patient will have hemorrhagic transformation. For that reason in my opinion, an IVC filter is not recommended. Labs, x-rays, and medications are reviewed. The patient is currently on 5 L of oxygen. He is receiving IV heparin, and saline at 50 mL an hour. We will continue to follow the patient, and make recommendations along the way. Prognosis is guarded. The patient is critically ill at this point. Plan dated 08/18/2023. The patient appears to be doing much better. He is seen today in room 454. He is not requiring any supplemental oxygen. The patient is not receiving any IV fluids. The patient was started on a factor X a inhibitor. The planner chief is determining whether or not his insurance will cover this medication. If not, the patient will likely need Coumadin, and may be a bridge with Lovenox. Labs, x-rays, and medications are reviewed. His neurologic findings have pretty much resolved. We will continue to follow and make recommendations along the way. The patient is counseled about the importance of smoking cessation. Time with Patient: Less than 30
--- NOTE | 2023-08-18 17:11 | P.PN ---
Subjective Progress Note Date: 08/18/23 08/18/2023: Patient was seen for a follow-up. Patient is doing much better. Offers no new complaints. Patient states that he walked to the bathroom by himself. Yesterday he walked to the shower while he was in the ICU by himself. Still notices slight weakness and incoordination of the right hand. Patient is left-hand dominant. No new focal symptoms. 08/17/2023: Patient was seen for a follow-up. Patient's mother was also present. Patient states he is feeling even much better, he walked and took her shower. He believes that he is about 90-95% better. His right arm is not as strong, or full function but otherwise feels much better. 08/16/2023: Patient was seen for a follow-up. Patient's mother was also present today. Patient is doing remarkably better. Patient admits to having headache only when he coughs or spits phlegm real hard. Otherwise he has no headache. Denies any new focal symptoms. He admits to feeling much better. He is very pleasant today. He wants to go home. Patient's mother mentions that she has history of thromboembolism 3 times. She does have MTHFR mutation. I spoke to Dr. Hansen, vascular surgery, who mentions that patient has been placed dual chamber catheter through which TPA was infused and it also vibrates to help with the dissolving the clot. He further mentioned that he performed section thrombectomy of the clot, which decreased significant amount of clot burden and that is the reason that he is better. Dr. Hansen mentions that if patient can receive full dose anticoagulation, patient will not need IVC filter placement and that procedure will be canceled. Patient had undergone MRI of the brain which revealed acute/subacute CVA with at least 2 small foci of infarct in the posterior left frontal lobe measuring up to 3 mm each. Nonspecific white matter changes, left greater than right, not in a typical distribution of demyelination. Possibly in the watershed region between the [place] and MCA territories. After I was reported this MRI by Dr. Olmos last night, I had called the nurse as well as spoke to Dr. He, about clearing for full dose anticoagulation with heparin. Objective - Vital Signs Vital signs: Vital Signs Temp 97.8 F 08/18/23 07:51 Pulse 80 08/18/23 07:51 Resp 18 08/18/23 07:51 BP 127/83 08/18/23 07:51 Pulse Ox 92 L 08/18/23 07:51 FiO2 Intake & Output 08/17/23 08/18/23 08/18/23 18:59 06:59 18:59 Intake Total 954.385 Output Total 950 Balance 4.385 Weight 159.6 kg Intake: IV 100 Sodium Chloride 0.9% 1, 100 000 ml @ 50 mls/hr IV . Q20H [facility] Rx#:[id number] Intake, IV Titration 374.385 Amount Heparin Sod,Pork in 0.45% 374.385 NaCl 25,000 unit In 0.45 % NaCl 1 250ml.bag @ 9. 299 UNITS/KG/HR 15.036 mls/hr IV .[id number] [facility] Rx #:[id number] Oral 480 Output: Urine 950 Other: Voiding Method Urinal # Voids 1 2 - Exam Patient is alert and awake. Speech and language functions are normal. Patient can name and repeat very well. His verbal fluency is completely normal. No obvious aphasia or dysarthria. On cranial nerve examination pupils are equal, round and reacting, visual gandhi are full with no neglect. Face is symmetric. Tongue protrudes to the midline. On muscle strength testing there is no significant pronator drift. There is no drift of the right leg. The strength is normal in the arms and legs bilaterally. Sensory to touch is equal with no neglect. No ataxia for [id number] testing, although he is slightly tremulous on the right with very minimal ataxia. - Labs CBC & Chem 7: 08/18/23 04:05 08/18/23 04:05 Labs: Abnormal Lab Results - Last 24 Hours (Table) 08/18/23 08/18/23 Range/Units 04:05 04:05 WBC 11.22 H (4.50-10.00) X 10*3/uL RBC 4.19 L (4.40-5.60) X 10*6/uL Hgb 11.0 L (13.0-17.0) g/dL Hct 35.7 L (39.6-50.0) % MCH 26.3 L (27.0-32.0) pg MCHC 30.8 L (32.0-37.0) g/dL MPV 12.4 H (9.5-12.2) FL Eosinophils # 1.29 H (0.04-0.35) X 10*3/uL Glucose 112 H (70-110) mg/dL Microbiology - Last 24 Hours (Table) 08/14/23 09:55 Blood Culture - Preliminary Blood 08/14/23 09:45 Blood Culture - Preliminary Blood Assessment and Plan Assessment: * Acute ischemic stroke, manifesting with right arm paresis, mild right-sided ne glect and mild expressive aphasia, with NIH stroke scale of 6. Patient's stroke onset was after patient underwent cannulation of the right common femoral vein 2, and placement of pulmonary artery catheter with initiation of TPA thrombolysis with [place] catheter bilaterally. Patient is doing much better, and the NIH stroke is down to 1. * Acute left lower extremity DVT, with submassive bilateral PE. * Status post EKOS 08/14/2023 * Rule out hypercoagulable state * Recent admission for pneumonia. * Tobacco use * Obesity Plan: * Patient is doing remarkably better. His initial NIH stroke scale of 6 is down to 1 now. * Patient is off heparin, and now started on Eliquis 10 mg twice a day for 7 days and then switch to Eliquis 5 mg twice a day. * MRI of the brain without contrast 08/15/2023 revealed acute/subacute CVA with at least 2 small foci of infarct in the posterior left frontal lobe, measuring up to 3 mm each. Nonspecific white matter change, left greater than right, not in a typical distribution for demyelination. Possibly in the watershed region between the [place] and MCA territories. I reviewed MRI, agree with the findings, although it appears that the FLAIR signal abnormality is present mostly on the left between left SIOMARA/MCA territory, but also present in the watershed distribution frontally in the right hemisphere as well. Patient does not have any history of hypotension, in fact his running elevated blood pressure. Uncertain if represents atypical PRES. * Repeat stat CT head performed 08/16/2023 shows microinfarcts seen on the MRI are not well appreciated on the CT. No hemorrhagic conversion. I personally reviewed CT head, agree with the findings. * 2-D echo revealed normal left ventricular size and systolic function with EF 55-60%. Severely increased left-ventricular wall thickness. Normal left ventricular wall motion. Severe right ventricular dilation with global hypokinesis. Severe pulmonary hypertension. Left atrium is normal in size. * Recommend JOYA for further evaluation of any embolic source, possible PFO. * CTA head and neck showed: No evidence of dissection of the cervical internal carotid arteries or vertebral arteries or any evidence of significant stenosis at the carotid bifurcations. No evidence of intracranial high-grade stenosis or intracranial aneurysm. Air space opacities in the right lung, correlate for pneumonia versus pulmonary infarction in the setting of pulmonary embolus. Small left pleural effusion partially visualized. * Fasting a.m. lipid panel cholesterol 120, LDL 64, HDL 37, triglycerides 92. Continue Lipitor 40 mg at bedtime (new since admission). * Hemoglobin A1c 5.8 * Optimize control of blood pressure to normotensive level. * Appreciate hematology input for possible hypercoagulable state. Cardiolipin antibodies negative, duffy virus PCR negative. * Neuro checks every 4 hours. * Telemetry monitoring rule out any arrhythmia * PT, OT, speech therapy initiated. * Recommend complete tobacco cessation. * DVT prophylaxis: Patient on Eliquis * Discussed with patient's mother and nursing staff in detail. * Neurologically clear. Recommend follow-up with neurologist outpatient in 1-2 weeks.
[2023-08-18] MEDS: ATORVASTATIN 40 MG TAB PO SCH (20:14)
[2023-08-19] MEDS: PANTOPRAZOLE 40 MG TABLET PO SCH (06:25)
[2023-08-19] MEDS: NICOTINE 21MG/24HR PATCH TRANSDERM SCH (07:44)
[2023-08-19] MEDS: Apixaban Initiation Dose--VTE 5 MG TAB PO SCH (08:49)
[2023-08-19] MEDS: ALBUTEROL NEBULIZED 2.5 MG/3 ML INHALATION SCH ×2 (09:17→11:34)
[2023-08-19 09:30] VITALS: BP 152/91; RESP 20; TEMP 98.5
[2023-08-19] MEDS: polyethylene glycoL 3350 17 GM POWD.PACK PO SCH (10:25)
[2023-08-19 10:41] VITALS: PULSE 96
[2023-08-19 10:49] LABS: Basophils # (A) 0.06 X 10*3/uL (0.00-0.10); Basophils % (A) 0.6 %; Eosinophils # (A) 1.38 X 10*3/uL (0.04-0.35); Eosinophils % (A) 13.6 %; HCT 37.1 % (39.6-50.0); HGB 11.5 g/dL (13.0-17.0); Lymphocytes # (A) 1.84 X 10*3/uL (0.90-5.00); Lymphocytes % (A) 18.1 %; MCH 26.2 pg (27.0-32.0); MCV 84.5 FL (80.0-97.0); Mean Platelet Volume 12.8 FL (9.5-12.2); Monocytes # (A) 0.77 X 10*3/uL (0.20-1.00); Monocytes % (A) 7.6 %; NRBC Per 100 WBC 0 X 10*3/uL (0.00-0.01); Neutrophils # (A) 6.08 X 10*3/uL (1.80-7.70); Neutrophils % (A) 59.8 %; Platelet Count 278 X 10*3/uL (140-440); RBC 4.39 X 10*6/uL (4.40-5.60); RDW 14.1 % (11.5-14.5); WBC 10.16 X 10*3/uL (4.50-10.00)
[2023-08-19 10:52] LABS: Blood Urea Nitrogen 14.4 mg/dL (9.0-27.0); Calcium 9.3 mg/dL (8.7-10.3); Carbon Dioxide 24.8 mmol/L (21.6-31.8); Chloride 103 mmol/L (96-109); Glucose 88 mg/dL (70-110); Magnesium 1.9 mg/dL (1.5-2.4); Potassium 4.6 mmol/L (3.5-5.5); Sodium 139 mmol/L (135-145)
--- NOTE | 2023-08-19 11:14 | P.DS ---
Providers Date of admission: 08/14/23 13:04 Expected date of discharge: 08/19/23 Attending physician: Richmond He MD Consults: 08/14/23 13:04 Consult Physician Routine Consulting Provider: Soniya Gonzalez Consult Reason/Comments: hypoxiay Do you want consulting provider notified?: Yes Consult Physician Routine Consulting Provider: Yumiko Padilla Consult Reason/Comments: NSTEMI Do you want consulting provider notified?: Yes 08/14/23 16:23 Consult Physician Stat Consulting Provider: Tank Dickerson Consult Reason/Comments: pe with heart strain, ekos Do you want consulting provider notified?: Already Contacted 08/14/23 20:41 Consult Physician Routine Consulting Provider: Yordy Ghosh Consult Reason/Comments: Code Stroke Do you want consulting provider notified?: Yes 08/15/23 13:35 Consult Physician Routine Consulting Provider: Jose Franicsco Swan Consult Reason/Comments: PE, stroke, family hx of MTHFR gene mutation Do you want consulting provider notified?: Yes Primary care physician: Stated None Hospital Course: Discharge Diagnosis: Acute Submassive bilateral pulmonary embolism Acute left leg DVT acute hypoxic respiratory failure NSTEMI, type 2 Acute left pleural effusion Acute CVA Hospital Course: 43-year-old male with history of morbid obesity presenting with sudden onset shortness of breath. In the ED, temperature was 98.2, pulse 96, blood pressure 128/85, saturating at 92% on 6 L, currently at 97% on 15 L nonrebreather. White count 14.5, d-dimer 7.81, lactic acid 3, troponin 0.289 up to 0.431, proBNP 1400, potassium 4.5. CTA chest shows bilateral pulmonary emboli with right heart strain, moderate to large left pleural effusion. Chest x-ray shows left pleural effusion. EKG shows evidence of S1 Q3 T3, and sinus tachycardia. Patient being admitted for submassive PE. Patient underwent EKOS. When he returned to ICU, patient had strokelike symptoms. Code stroke was called. CT head and CTA did not show any acute process or large vessel occlusion. Unable to do systemic TPA. Repeat CT head also did not show any acute process. Neurology following. Heme also consulted. Echocardiogram showed severely dilated right ventricle with severe pulmonary hypertension global hypokinesis. Venous Doppler showed positive DVT in the left leg. There is a possibility of PFO. Brain MRI discharge acute/subacute CVA with at least 2 small foci of infarct in the posterior left frontal lobe. Vascular surgery performed thrombectomy. No indications for IVC filter at this point. Cardiology also following with regards to possible PFO, no interventions planned at the moment. On oral anticoagulation. Respiratory function stable at discharge. Will follow up with Hematology, cardiology, and vascular surgery. Patient seen and examined at bedside. Vital signs reviewed and stable. General: nontoxic, no distress, appears at stated age, morbidly obese Derm: warm, dry Head: atraumatic, normocephalic, symmetric Eyes: EOMI, no lid lag, anicteric sclera Mouth: no lip lesion, mucus membranes moist Cardiovascular: S1S2 reg, no murmur Lungs: CTA bilateral, no rhonchi, no rales , no accessory muscle use Abdominal: soft, nontender to palpation, no guarding, no appreciable organomegaly Ext: no gross muscle atrophy, no edema, no contractures Neuro: CN II-XI grossly intact, 4/5 strength in right upper extremity Psych: Alert, oriented, appropriate affect A total of 35 minutes of time were spent preparing this complex discharge summary. Patient was discharged on 08/19/23 at 1040. Patient Condition at Discharge: Stable Plan - Discharge Summary Discharge Rx Participant: No New Discharge Prescriptions: New Apixaban Initiation Dose--VTE [Eliquis Initiation Dosing for VTE Treatment] 10 mg PO BID #90 tab polyethylene glycoL 3350 [Miralax] 17 gm PO DAILY #60 packet Pantoprazole [Protonix] 40 mg PO AC-BRKFST #60 tab Atorvastatin [Lipitor] 40 mg PO HS #60 tab Discharge Medication List Apixaban Initiation Dose--VTE [Eliquis Initiation Dosing for VTE Treatment] 10 mg PO BID #90 tab 08/19/23 [Rx] Atorvastatin [Lipitor] 40 mg PO HS #60 tab 08/19/23 [Rx] Pantoprazole [Protonix] 40 mg PO AC-BRKFST #60 tab 08/19/23 [Rx] polyethylene glycoL 3350 [Miralax] 17 gm PO DAILY #60 packet 08/19/23 [Rx] Follow up Appointment(s)/Referral(s): Delon Del Rosario MD [STAFF PHYSICIAN] - 1 Week (office will call with appointment time) Jose Francisco Swan [STAFF PHYSICIAN] - 1 Week Tank Dickerson DO [Doctor of Osteopathic Medicine] - 1 Week (office not answering Please call to schedule appointment ) None,Stated [Primary Care Provider] - 1-2 days Patient Instructions/Handouts: Pulmonary Embolism (DC), Ischemic Stroke (DC) Discharge Disposition: HOME SELF-CARE
[2023-08-19 14:26] LABS: APTT 47 Sec(s) (<43); APTT 1:1 Mix 41 Sec(s) (<43); Dilute Russell Viper Venom 42 Sec(s) (<44)
--- NOTE | 2023-08-30 11:56 | IR ---
[facility] DATE OF EXAM: 08/15/2023 FLUOROSCOPY bilateral PE, 30.7min fluoro, [id number] images provided.
== END 2023-08-19 13:10 | disposition home or self-care (01) | DRG 121 ==
LOC: EC 09:01 → 1SOBS 13:04 → 2SICU 16:29 → 4SSUR 08-17 13:46
PROVIDERS: ADMIT Student in an Organized Health Care Education/Training Program; ATTEND Student in an Organized Health Care Education/Training Program
PROC: B31T1ZZ Fluoroscopy of Left Pulmonary Artery using Low Osmolar Contrast (ICD-10-PCS; 2023-08-14)
PROC: B31S1ZZ Fluoroscopy of Right Pulmonary Artery using Low Osmolar Contrast (ICD-10-PCS; 2023-08-14)
PROC: 3E03317 Introduction of Other Thrombolytic into Peripheral Vein, Percutaneous Approach (ICD-10-PCS; 2023-08-14)
PROC: 02FQ3Z0 Fragmentation of Right Pulmonary Artery, Percutaneous Approach, Ultrasonic (ICD-10-PCS; 2023-08-14)
PROC: 02FR3Z0 Fragmentation of Left Pulmonary Artery, Percutaneous Approach, Ultrasonic (ICD-10-PCS; 2023-08-14)
PROC: 02CQ3ZZ Extirpation of Matter from Right Pulmonary Artery, Percutaneous Approach (ICD-10-PCS; 2023-08-15)
PROC: 02CR3ZZ Extirpation of Matter from Left Pulmonary Artery, Percutaneous Approach (ICD-10-PCS; 2023-08-15)
PROC: 5A0935A Assistance with Respiratory Ventilation, Less than 24 Consecutive Hours, High Flow/Velocity Cannula (ICD-10-PCS; principal; 2023-08-15 17:50)
DX: I26.99 Other pulmonary embolism without acute cor pulmonale (principal); J80 Acute respiratory distress syndrome; I63.432 Cerebral infarction due to embolism of left posterior cerebral artery; I82.432 Acute embolism and thrombosis of left popliteal vein; I21.A1 Myocardial infarction type 2; I27.20 Pulmonary hypertension, unspecified; J18.9 Pneumonia, unspecified organism; E87.20 Acidosis, unspecified; R41.4 Neurologic neglect syndrome; G81.91 Hemiplegia, unspecified affecting right dominant side; Q21.12 Patent foramen ovale; J44.1 Chronic obstructive pulmonary disease with (acute) exacerbation; J44.0 Chronic obstructive pulmonary disease with (acute) lower respiratory infection; J45.901 Unspecified asthma with (acute) exacerbation; J90 Pleural effusion, not elsewhere classified; R47.01 Aphasia; E66.01 Morbid (severe) obesity due to excess calories; F17.210 Nicotine dependence, cigarettes, uncomplicated; R27.8 Other lack of coordination; R29.706 NIHSS score 6; F41.9 Anxiety disorder, unspecified; I51.9 Heart disease, unspecified; D72.828 Other elevated white blood cell count; Z11.52 Encounter for screening for COVID-19; Z68.41 Body mass index [BMI] 40.0-44.9, adult; Z28.310 Unvaccinated for COVID-19; Z82.49 Family history of ischemic heart disease and other diseases of the circulatory system; Z84.81 Family history of carrier of genetic disease; Z87.01 Personal history of pneumonia (recurrent); Z79.899 Other long term (current) drug therapy
CPT/HCPCS: 36415; 37184; 37185; 37211; 70450; 70496; 70498; 70551; 71045; 71275; 80048; 80053; 80061; 82272; 83036; 83605; 83735; 83880; 84484; 85025; 85379; 85384; 85610; 85613; 85730; 85732; 86146; 86147; 87040; 87635; 93005; 93306; 93970; 94640; 94760; 96361; 96365; 96367; 96375; 99291